=== PATIENT | male | born 1965 | race Caucasian/White ===

== ENCOUNTER 2020-04-25 10:50 | Emergency (ER) | payer MEDICARE, MEDICAID, SELFPAY ==
[2020-04-25 10:54] VITALS: BP 137/91; PULSE 83; RESP 16; TEMP 36.9; O2SAT 96; BMI 24.5
--- NOTE | 2020-04-25 11:00 | XRR_ITS ---
PROCEDURE INFORMATION: Exam: XR Right Shoulder Exam date and time: 04/25/2020 11:25 AM Age: 54 years old Clinical indication: Pain and injury or trauma; Injury history: Car fell on patient; Initial encounter; Blunt trauma (contusions or hematomas; Shoulder; Right; Injury details: 3 days ago TECHNIQUE: Imaging protocol: XR Right shoulder. Views: 2 or more views. COMPARISON: No relevant prior studies available. FINDINGS: Bones/joints: Osseous structures of the shoulder are grossly normal. Acromioclavicular joint is without dislocation or fracture. Subacromial space height is normal. Adjacent ribs are normal. Glenohumeral joint, clavicle, acromion, and coracoid process appear grossly normal. Soft tissues: Normal. XR/XR shoulder RT min 2V* [id number] IMPRESSION: Normal shoulder.
--- NOTE | 2020-04-25 11:08 | W.ED.EXTPRO ---
HPI - Extremity Problem General: Chief complaint: Extremity Injury, Upper Stated complaint: car fell on pt Time Seen by Provider: 04/25/20 11:07 Source: patient Mode of arrival: ambulatory Limitations: no limitations History of Present Illness: HPI Narrative: Patient comes in today for complaints of injury to the right chest wall/right shoulder area. Patient states on Saturday he was working on his car and it slipped off the [place] causing the car to come down on his right shoulder hard. Patient states that over the last 2 days he has had increasing pain to the right anterior chest wall. Respirations were even lungs were clear to auscultation. Patient's appears well. Patient appears in mild to moderate pain. Review of Systems General: Reports: 10 or more systems reviewed and unremarkable except in HPI and below Musc: Reports: extremity pain PFSH ED PFSH: Social History Smoking and tobacco status: former smoker Physical Exam Const: COMMON NORMALS: no acute distress and patient oriented x3 GENERAL APPEARANCE: cooperative HENMT: COMMON NORMALS: normocephalic and Normal external nose present HEAD & SCALP: normal to inspection and normocephalic NOSE: Normal external nose present MOUTH: Normal oral and palatal mucosa present Eye: GENERAL EYE: appearance normal, both eyes and all related structures Neck/C-Spine: COMMON NORMALS: full ROM Lymph: LYMPHATIC: no lymphadenopathy noted Chest: CHEST: Yes tenderness (Right anterior chest wall.) Resp: COMMON NORMALS: normal respiratory effort EFFORT & INSPECTION: Yes able to speak in complete sentences Cardio: COMMON NORMALS: regular rate and regular rhythm RATE: regular rate RHYTHM: regular rhythm GI: COMMON NORMALS: non-tender : COMMON NORMALS: Yes no CVA tenderness BLADDER/KIDNEY EXAM: Yes no CVA tenderness Back/Pelvis: COMMON NORMALS: no CVA tenderness THORACIC SPINE/UPPER BACK: Yes paraspinal muscle tenderness Extremity: COMMON NORMALS: normal to inspection Neuro: COMMON NORMALS: patient oriented x3 and moves all extremities Psych: COMMON NORMALS: mental status grossly normal and cooperative Skin: COMMON NORMALS: no rashes or lesions noted GENERAL SKIN EXAM: no rashes or lesions noted Course Vital Signs: Vital signs: Vital Signs Temperature 98.4 F 04/25/20 10:54 Pulse Rate 83 04/25/20 10:54 Respiratory Rate 16 04/25/20 10:54 Blood Pressure 137/91 04/25/20 10:54 Pulse Oximetry 96 06/22/20 10:54 MDM - Extremity (Nontraumatic) MDM Narrative: Medical decision making narrative: Patient comes in for concerns of chest wall injury and pain from the incident that occurred on Saturday. On exam patient has some tenderness to the right anterior chest wall. Respirations were even lungs were clear to auscultation. Heart rate was regular. Abdomen soft and nontender. Patient had normal range of motion of the right shoulder. Differential diagnosis includes but not limited to contusion, pneumonia, rib fracture. X-rays were negative for any fracture or pneumothorax. Reviewed exam with patient recommended treatment with medication for pain and discomfort inflammation. EKG was normal. Patient reported understanding of care plan and need for follow-up. Discharge Plan Discharge Patient Disposition: Home, Self-Care Clinical Impression: Chest wall contusion Qualifiers: Encounter type: initial encounter Laterality: right Qualified Code(s): S20.211A - Contusion of right front wall of thorax, initial encounter Condition: Stable Prescriptions: New diclofenac potassium 50 mg tablet 50 mg PO Q8H PRN (Reason: pain) Qty: 20 RF: 0 Discharge Orders: Discharge Order (Routine); Ordered 04/25/20 Ordered By: Jake Bryant Discharge Diet: Usual diet Discharge Activity: Increase activity as tolerated Patient Instructions: Contusion in Adults (ED) Activity Restrictions/Additional Instructions: Activity as tolerated. Drink plenty of water with medication. Follow-up with primary care in 1 week. Return to the ER for worsening shortness of breath or high fever. Coding Level of Care Code ED Logistician for Renny Dao Exam Comprehensive
--- NOTE | 2020-04-25 11:12 | XRR_ITS ---
PROCEDURE INFORMATION: Exam: XR Right Ribs with PA Chest, 3 Views Exam date and time: 04/25/2020 11:13 AM Age: 54 years old Clinical indication: Pain and injury or trauma; Injury history: Car fell on patient; Initial encounter; Rib area; Blunt trauma (contusions or hematomas); Other: Right upper rib pain; Injury details: 3 days ago TECHNIQUE: Imaging protocol: XR Right ribs 3 views with PA chest. COMPARISON: No relevant prior studies available. FINDINGS: Lungs: The submitted view of the chest is unremarkable. No acute cardiopulmonary process. The ribs are grossly normal. No acute or chronic fracture appreciated. No lytic process or expansile process. No rib notching. Pleural space: Unremarkable. No pleural effusion. No pneumothorax. Heart/Mediastinum: Unremarkable. No cardiomegaly. Bones/joints: See Lungs finding. XR/XR ribs RT mn 3V w CXR1V [id number] IMPRESSION: Unremarkable ribs.
--- NOTE | 2020-04-25 11:12 | ECG_ITS ---
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 Measurements Intervals [place] Rate: 81 P: 71 IA: 151 QRS: 48 QRSD: 73 T: 54 QT: 352 QTc: 410 Interpretive Statements SINUS RHYTHM No previous ECG available for comparison Electronically Signed On 04-25-2020 18:27:47 CDT by Carly Donohue M.D. [id number]
[2020-04-25 12:50] VITALS: BP 147/86; PULSE 75; RESP 18; O2SAT 96
== END 2020-04-25 12:51 | disposition home or self-care (01) ==
PROVIDERS: Emergency Provider Nurse Practitioner Family
DX: S20.211A Contusion of right front wall of thorax, initial encounter (principal); W20.8XXA Other cause of strike by thrown, projected or falling object, initial encounter; Z87.891 Personal history of nicotine dependence
CPT/HCPCS: 12345; 71101; 73030; 93005; 99282; 99283

== ENCOUNTER → 2020-11-09 09:55 | Outpatient (BNVA) | payer MEDICARE, MEDICAID, SELFPAY | PROVIDERS: PCP Nurse Practitioner Family; Referring Provider Nurse Practitioner Family; Visit Provider Nurse Practitioner Family | DX: R35.0 Frequency of micturition (principal); Z12.5 Encounter for screening for malignant neoplasm of prostate; N40.1 Benign prostatic hyperplasia with lower urinary tract symptoms | CPT/HCPCS: 81003; G0103 ==

== ENCOUNTER 2020-11-30 08:27 | Outpatient (CLI) | payer MEDICARE, MEDICAID, SELFPAY ==
--- NOTE | 2020-11-30 08:45 | US_ITS ---
WS: [id number] ULTRASOUND ABDOMEN LIMITED CLINICAL INFORMATION: R10.9 - Unspecified abdominal pain COMPARISON: None. FINDINGS: Liver Size: Normal. Craniocaudal length: 12.9 cm. Echogenicity: Normal. Surface nodularity: None. Mass (size and location): None. Bile ducts Intrahepatic ducts: Normal. Common bile duct diameter: 0.4 cm. Gallbladder Normal. Gallstones: None. Gallbladder sludge: None. Gallbladder wall thickening: None. Pericholecystic fluid: None. Sonographic Denny sign: Absent. Pancreas Normal as visualized. Right kidney: Normal. Hydronephrosis: None. Size: 10.4 cm x 5.4 cm x 4.6 cm. Abdominal aorta and IVC Visualized portions are normal. Ascites: None. US/US gall bladder [id number] IMPRESSION: Normal right upper quadrant ultrasound
== END 2020-11-30 08:28 | disposition home or self-care (01) ==
LOC: US 08:28
PROVIDERS: PCP Nurse Practitioner Family; Visit Provider Surgery
DX: R10.9 Unspecified abdominal pain (principal)
CPT/HCPCS: 76705

== ENCOUNTER → 2020-12-02 10:59 | Outpatient (BNVA) | payer MEDICARE, MEDICAID, SELFPAY | PROVIDERS: PCP Nurse Practitioner Family; Visit Provider Surgery | DX: Z20.822 Contact with and (suspected) exposure to COVID-19 (principal) | CPT/HCPCS: 87635 ==

== ENCOUNTER 2020-12-07 07:15 | Day surgery (SDC) | payer MEDICARE, MEDICAID, SELFPAY ==
[2020-12-05 11:09] VITALS: BMI 25.4
[2020-12-07 07:34] VITALS: BP 156/101; PULSE 95; RESP 18; TEMP 36.3; O2SAT 98
[2020-12-07] MEDS: sodium chloride 0.9% 1,000 ML 30 ML IV (07:38)
--- NOTE | 2020-12-07 07:39 | ANES.PREANE2 ---
Pre-Anesthetic Assessment Pre-Anesthetic Assessment: Height/Weight: Height 1.68 m Weight 71.668 kg Preop Diagnosis: Bloating Proposed Procedure: Operation Date: 12/07/20 08:15 Proposed Procedures p EGD/colon 52671 45476 K21.9 Z12.11(Not Applicable) - Chavez Shea MD s Colonoscopy(Not Applicable) - Chavez Shea MD Familial anesthetic complications: None Was Beta Trinh taken within 24 hours: N/A Last intake: NPO > 8 hrs Social: Social History: No alcohol and No tobacco Comment: forme rsmoker Exam: Pre-Anes Outpt Exam: alert, oriented x 3, clear to auscultation bilaterally and regular rate & rhythm Airway: Cervical ROM: WNL MP: 3 Dentition: Other (extremely poor dentition of lower teeth (brown, discolored rotten, misshapen)) Additional comments: full montaño Pulmonary: Pulmonary: COPD GI: GI: GERD Metabolic: Metabolic: Hyperlipidemia Neuropsych: Neuropsych: TIA Anesthetic Plan: ASA status: 2 Anesthesia: MAC Risk of > 500 ml blood loss (7ml/kg in children): No PFSH Anesthesia PFSH: Medical History BPH loc w urin obs/LUTS GERD with esophagitis Screening PSA (prostate specific antigen) Family History Family/Other No problems noted. Social History Smoking and tobacco status: former smoker Alcohol intake: never Current occupational status: unemployed Data Anesthesia Cardiac Studies: No Data to Display
--- NOTE | 2020-12-07 07:40 | W.PM.OPSUD ---
Surgery/Procedure H&P Update DATE OF PROCEDURE: December 07, 2020 DATE H&P PERFORMED: 11/17/20 H&P UPDATE INFORMATION: I have reviewed H&P completed within last 30 days, I have examined patient prior to procedure and No changes to prior documentation PREOP DIAGNOSIS: Bloating PRIMARY INDICATION FOR PROCEDURE: The same PLANNED PROCEDURE: Operation Date: 12/07/20 08:15 Proposed Procedures p EGD/colon 57539 85281 K21.9 Z12.11(Not Applicable) - Chavez Shea MD s Colonoscopy(Not Applicable) - Chavez Shea MD
[2020-12-07 08:42] VITALS: BP 139/78; PULSE 73; RESP 16; TEMP 36.6; O2SAT 98
--- NOTE | 2020-12-07 08:46 | ANE.PACU2 ---
Inpatient post-anesthesia follow up: Airway intact: Yes Vital signs: Temperature 97.3 F Pulse Rate 95 Respiratory Rate 18 Blood Pressure 156/101 Pulse Oximetry 98 Oxygen Delivery Me thod Room Air Oxygen Flow Rate Fraction of Inspir ed Oxygen Hydration adequate: Yes Nausea and vomiting: No Pain level: 1 Mental status: Baseline
[2020-12-07 08:56] VITALS: BP 147/93; PULSE 73; RESP 16; O2SAT 99
[2020-12-08 05:55] LABS: H. Pylori / CLO Test Negative
== END 2020-12-07 09:04 | disposition home or self-care (01) ==
PROVIDERS: PCP Nurse Practitioner Family; Visit Provider Surgery
PROC: 0DJ08ZZ Inspection of Upper Intestinal Tract, Via Natural or Artificial Opening Endoscopic (ICD-10-PCS; CPT 43235; principal; 2020-12-07 08:15)
PROC: 0DJD8ZZ Inspection of Lower Intestinal Tract, Via Natural or Artificial Opening Endoscopic (ICD-10-PCS; CPT 45378; 2020-12-07 08:15)
DX: R14.0 Abdominal distension (gaseous) (principal); D12.0 Benign neoplasm of cecum; K21.9 Gastro-esophageal reflux disease without esophagitis; K29.70 Gastritis, unspecified, without bleeding; K29.80 Duodenitis without bleeding; N40.1 Benign prostatic hyperplasia with lower urinary tract symptoms; N13.8 Other obstructive and reflux uropathy; Z87.891 Personal history of nicotine dependence; J44.9 Chronic obstructive pulmonary disease, unspecified; E78.5 Hyperlipidemia, unspecified; Z86.73 Personal history of transient ischemic attack (TIA), and cerebral infarction without residual deficits
CPT/HCPCS: 12345; 43239; 45380; 87077; 88305; J2704; J7030

== ENCOUNTER 2020-12-16 06:42 | Outpatient (CLI) | payer MEDICARE, MEDICAID, SELFPAY ==
--- NOTE | 2020-12-16 08:00 | NM_ITS ---
WS: [id number] NUCLEAR MEDICINE HIDA SCAN CLINICAL INFORMATION: R10.9 - Unspecified abdominal pain TECHNIQUE: Following intravenous administration of 7.8 mCi of technetium 99m mebrofenin, images of th e abdomen were obtained over the course of 60 minutes. Next, gallbladder ejection fraction was determ ined by obtaining preprandial and one-hour postprandial images of the gallbladder following oral guille stion of Ensure. COMPARISON: Ultrasound November 30, 2020 FINDINGS: Normal hepatic uptake at 5 minutes. Gallbladder is visualized by 15 minutes. No evidence of acute cho lecystitis. Common bile duct is visualized. Normal small bowel activity. No evidence of choledocholit hiasis. Gallbladder ejection fraction 79% within normal limits. No evidence of chronic cholecystitis. NM/NM hepatobiliary w phar* [id number] IMPRESSION: 1. No evidence of acute or chronic cholecystitis. 2. Normal gallbladder ejection fraction 79%.
== END 2020-12-16 06:43 | disposition home or self-care (01) ==
LOC: NM 06:43
PROVIDERS: PCP Nurse Practitioner Family; Visit Provider Surgery
DX: R10.9 Unspecified abdominal pain (principal)
CPT/HCPCS: 78227; A9537

== ENCOUNTER → 2021-01-12 10:48 | Outpatient (BNVA) | payer MEDICARE, MEDICAID, SELFPAY | PROVIDERS: PCP Nurse Practitioner Family; Visit Provider Urology | DX: N40.1 Benign prostatic hyperplasia with lower urinary tract symptoms (principal) | CPT/HCPCS: 81003 ==

== ENCOUNTER → 2021-05-01 15:06 | Outpatient (BNVA) | payer MEDICARE, MEDICAID, SELFPAY | PROVIDERS: PCP Nurse Practitioner; Visit Provider Nurse Practitioner | DX: J43.9 Emphysema, unspecified (principal); E78.2 Mixed hyperlipidemia; R14.0 Abdominal distension (gaseous) | CPT/HCPCS: 80053; 80061; 85025 ==

== ENCOUNTER 2021-10-11 09:27 | Emergency (ER) | payer MEDICARE, MEDICAID, SELFPAY ==
[2021-10-11 09:45] VITALS: BP 98/67; PULSE 106; RESP 20; TEMP 37.2; O2SAT 89; BMI 29.8
--- NOTE | 2021-10-11 09:52 | PC.NURSE ---
pt is covid waiting room put on 2L O2 at 93%
--- NOTE | 2021-10-11 09:52 | XR_ITS ---
WS: [id number] Exam: XR chest 1V portable [id number] Date/Time of Exam: 10/11/2021 9:52 AM Reason For Exam: COVID Comparison 04/25/2020. There are mild groundglass infiltrates in the bilateral lower lobes suggesting pneumonia. Remaining l westley kate are clear. Normal cardiomediastinal structures. No pleural effusions. Bony elements are in tact. XR/XR chest 1V portable [id number] IMPRESSION: 1. Mild groundglass infiltrates in the bilateral lung bases suggesting active p neumonia.
--- NOTE | 2021-10-11 11:12 | ED_ITS ---
HPI - COVID General: Chief Complaint: COVID symptoms Stated Complaint: COVID +/SOB, 84% O2 Time Seen by Provider: 10/11/21 09:54 Triage information: Exposure to COVID + person last 14 days History of Present Illness: HPI Narrative: 55-year-old male presents emergency room complaining of cough congestion myalgias mild anosmia and low-grade subjective fever. Patient said symptoms for approximately 1 week he did go home COVID test which she reported was positive evaluation 3 days ago. He has not had any formal testing. He denies productive cough. Does have a history of COPD. On presentation here his sats are in the 80s and he requires 2 L by nasal cannula he is not normally on oxygen. MD complaint: known COVID positive Prior testing date: 10/11/21 COVID 19 common symptoms: positive fever(s), chills, cough, non-productive cough, dyspnea, fatigue, body aches, headache(s), loss of sense of smell and/or taste, throat pain and nasal congestion; negative nausea, vomiting or diarrhea COVID 19 other sytmptoms: positive requiring oxygen; negative chest pain Onset (ago): hour(s) Severity: moderate Pertinent comorbid conditions: COPD/respiratory disease Treatment prior to arrival: none COVID Results: SARS-CoV-2 Antigen (Rapid) Positive (Negative) H 10/11/21 11:23 10/11/21 Nasal/Oral Coronavirus 2019 PCR Not detected 12/02/20 10:59 12/02/20 Review of Systems Const: Reports: fever(s), chills, body aches and fatigue ENMT: Reports: throat pain and nasal congestion Card: Denies: chest pain, edema, dyspnea on exertion or orthopnea Resp: Reports: dyspnea and non-productive cough GI: Denies: abdominal pain, nausea, vomiting, hematemesis, coffee ground emesis, diarrhea, constipation, bloating, hematochezia or melena : Denies: flank pain, dysuria, urinary frequency or urinary urgency Skin/Breast: Denies: rash or pruritus Neuro: Reports: headache(s) [facility] ED PFSH: Medical History (Updated 10/11/21 @ 12:57 by Floyd Camacho DO) 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 Mother , AT AGE 83 No problems noted. Father , AT AGE 67 No problems noted. Social History Second hand smoke exposure: No Smoking risk assessment/counseling performed?: No Alcohol intake: never Desire information about alcohol rehabilitation?: No Counseling given: No Desire information about substance/drug rehabilitation?: No Counseling given: No Adopted: No Caregiver/support person: No Lives independently: Yes Household members: none Housing: House Marital status: Number of children: 2 service: No Current occupational status: disabled Current occupational exposures/hazards: No Pets and animals: Yes Pets & animals: cat(s) History of recent travel: No Current gender identity: Male Physical Exam Const: COMMON NORMALS: no acute distress GENERAL APPEARANCE: cooperative and comfortable ORIENTATION/CONSCIOUSNESS: Yes awake, Yes oriented to person, Yes oriented to place and Yes oriented to time HENMT: COMMON NORMALS: normocephalic, atraumatic and hearing grossly normal bilaterally HEAD & SCALP: normocephalic and atraumatic Neck/C-Spine: COMMON NORMALS: no JVD Resp: AUSCULTATION: crackles and wheezes Cardio: COMMON NORMALS: no JVD, regular rate, regular rhythm and No murmurs present (Cardio) RATE: regular rate RHYTHM: regular rhythm GI: COMMON NORMALS: Soft to palpation and No hepatosplenomegaly present AUSCULTATION: Yes normoactive bowel sounds PALPATION: Yes Soft to palpation, No Tenderness to palpation present (GI), No Guarding due to palpation present (GI) and Yes No hepatosplenomegaly present Extremity: COMMON NORMALS: normal to inspection, capillary refill normal, no clubbing, cyanosis or edema, no calf tenderness and no pedal edema Neuro: SENSORIUM/ORIENTATION: Yes oriented to person, Yes oriented to place and Yes oriented to time Skin: COMMON NORMALS: no rashes or lesions noted GENERAL SKIN EXAM: no rashes or lesions noted Course Vital Signs: Vital signs: Vital Signs Temperature 99.0 F 10/11/21 09:45 Pulse Rate 85 10/11/21 14:18 Respiratory Rate 23 H 10/11/21 14:18 Blood Pressure 142/82 10/11/21 14:18 Pulse Oximetry 96 10/11/21 14:18 MDM - COVID MDM Narrative: Medical decision making narrative: Patient has COVID however is tolerating well does have some coarse breath sounds with his oxygen saturations are normal at 2 L/min. We will go ahead and discharge him home on home oxygen dexamethasone and albuterol as needed monitor home O2 sats if less than 90% on room air at rest return to emergency room. Lab Data: Labs: Lab Results 10/11/21 10/11/21 10/11/21 11:23 11:23 11:23 WBC 7.9 10^3/uL 10^3/ uL (4.0-10.0) RBC 4.83 10^6/uL 10^6 /uL (4.1-5.3) Hgb 14.1 g/dL g/dL (11.7-16.6) Hct 42.2 % % (42.0-52.0) MCV 87.4 fl fl (80-94) MCH 29.2 pg pg (28.0-34.0) MCHC 33.4 g/dL g/dL (30.0-36.0) RDW 13.6 % % (12.1-15.1) Plt Count 232 10^3/cmm 10^3 /cmm (130-400) MPV 10.9 fL H fL (7.4-10.4) Neut % (Auto) 81.9 % % Lymph % (Auto) 10.9 % % Elk % (Auto) 6.3 % % Eos % (Auto) 0.0 % % Baso % (Auto) 0.1 % % Neut # (Auto) 6.48 10^3/uL 10^3 /uL (1.8-7.7) Lymph # (Auto) 0.9 10^3/uL 10^3/ uL (0.8-4.8) Elk # (Auto) 0.5 10^3/uL 10^3/ uL (0.2-0.9) Eos # (Auto) 0.0 10^3/uL 10^3/ uL (0.0-0.8) Baso # (Auto) 0.0 10^3/uL 10^3/ uL (0.0-0.1) Nucleated RBC % (a uto) 0 % % Nucleated RBCs # 0.0 /100WBC /100W BC Sodium 131 mmol/L L mmol /L (136-145) Potassium 3.7 mmol/L mmol/L (3.5-5.1) Chloride 91 mmol/L L mmol/ L (98-107) Carbon Dioxide 21 mmol/L L mmol/ L (22-29) Anion Gap 22.7 H (5-19) BUN 14 mg/dL mg/dL (6-20) Creatinine 1.1 mg/dL mg/dL (0.7-1.2) GFR Calculation 69.2 mL/min L mL/ min (90-130) Glucose 114 mg/dL mg/dL (65-115) Calculated Osmolal ity 273 mOsm/kg L mOs m/kg (285-295) Calcium 8.1 mg/dL L mg/dL (8.5-10.5) Total Bilirubin 0.4 mg/dL mg/dL (0.15-1.2) AST 45 U/L H U/L (0-40) ALT 26 U/L U/L (0-41) Alkaline Phosphata se 61 IU/L IU/L (40-130) Total Protein 7.1 g/dL g/dL (6.6-8.7) Albumin 3.8 g/dL g/dL (3.5-5.2) Globulin 3.3 g/dL g/dL (1.3-4.6) SARS-CoV-2 Ag (Rap id) Positive H (Negative) COVID Results: SARS-CoV-2 Antigen (Rapid) Positive (Negative) H 10/11/21 11:23 10/11/21 Nasal/Oral Coronavirus 2019 PCR Not detected 12/02/20 10:59 12/02/20 Discharge Plan Discharge Patient Disposition: Home Clinical Impression: COVID-19, COPD (chronic obstructive pulmonary disease) with emphysema Condition: Stable Prescriptions: New dexamethasone 6 mg tablet 6 mg PO DAILY Qty: 7 RF: 0 albuterol sulfate 90 mcg/actuation HFA aerosol inhaler 2 inh INHALATION Q4H PRN (Reason: shortness of breath or wheezing) Qty: 18 RF: 0 No Action Breelzbietatri Aerosphere 160-9-4.8 mcg/actuation HFA aerosol inhaler 2 inh inhalation BID Qty: 10.7 RF: 2 lovastatin 20 mg tablet 20 mg PO DAILY Qty: 90 RF: 1 sucralfate [Carafate] 1 gram tablet 1 g PO .4 times day Qty: 360 RF: 1 tamsulosin 0.4 mg capsule 0.4 mg PO DAILY Qty: 90 RF: 1 omeprazole 40 mg capsule,delayed release(DR/EC) See Rx Instructions .ROUTE .COMPLEX Qty: 30 RF: 2 Discharge Orders: Discharge ED (Routine); Ordered 10/11/21 Ordered By: Floyd Camacho Other Ambulatory Orders: DME: Oxygen (Order) Location: None Selected Ordered By: Floyd Camacho Referrals: Sarah Armendariz, WINDOWS SERVER ADMINISTRATOR-C [Primary Care Provider] - Discharge Diet: Usual diet Patient Instructions: Opioid Safety Activity Restrictions/Additional Instructions: Recommend you maintain self quarantine. Monitor home oxygen saturations. If oxygen saturations decreased below 90% while on 2 L by nasal cannula at rest return to the emergency room. Coding Level of Care Code ED Hospice Nurse for Renny Dao Exam Comprehensive
[2021-10-11 11:31] VITALS: O2SAT 96
[2021-10-11 11:34] LABS: Basophils % 0.1 %; Hematocrit 42.2 % (42.0-52.0); Hemoglobin 14.1 g/dL (11.7-16.6); Lymphocytes # 0.9 10^3/uL (0.8-4.8); Lymphocytes % 10.9 %; Mean Corpuscular HGB Conc 33.4 g/dL (30.0-36.0); Mean Corpuscular Hemoglobin 29.2 pg (28.0-34.0); Mean Corpuscular Volume 87.4 fl (80-94); Mean Platelet Volume 10.9 fL (7.4-10.4); Monocytes # 0.5 10^3/uL (0.2-0.9); Monocytes % 6.3 %; Neutrophils # 6.48 10^3/uL (1.8-7.7); Neutrophils % 81.9 %; Nucleated Red Blood Cells % 0 %; Platelet Count 232 10^3/cmm (130-400); Red Blood Count 4.83 10^6/uL (4.1-5.3); Red Cell Distribution Width 13.6 % (12.1-15.1); White Blood Count 7.9 10^3/uL (4.0-10.0)
[2021-10-11 12:06] LABS: Alanine Aminotransferase 26 U/L (0-41); Albumin Level 3.8 g/dL (3.5-5.2); Alkaline Phosphatase 61 IU/L (40-130); Anion Gap 22.7 (5-19); Aspartate Amino Transferase 45 U/L (0-40); Blood Urea Nitrogen 14 mg/dL (6-20); Calcium 8.1 mg/dL (8.5-10.5); Carbon Dioxide 21 mmol/L (22-29); Chloride 91 mmol/L (98-107); Globulin 3.3 g/dL (1.3-4.6); Glomerular Filtration Rate 69.2 mL/min (90-130); Glucose 114 mg/dL (65-115); Osmolality Calculated 273 mOsm/kg (285-295); Potassium 3.7 mmol/L (3.5-5.1); Sodium 131 mmol/L (136-145); Total Bilirubin 0.4 mg/dL (0.15-1.2); Total Protein 7.1 g/dL (6.6-8.7)
[2021-10-11 12:26] VITALS: O2SAT 90
[2021-10-11 12:31] LABS: SARS Covid-2 Antigen Positive (Negative)
[2021-10-11] MEDS: sodium chloride 0.9% 1,000 ML 999 ML IV (13:17)
[2021-10-11 14:18] VITALS: BP 142/82; PULSE 85; RESP 23; O2SAT 96
== END 2021-10-11 14:19 | disposition home or self-care (01) ==
PROVIDERS: Physician Assistant; Emergency Provider Family Medicine; PCP Nurse Practitioner
DX: U07.1 COVID-19 (principal); J43.9 Emphysema, unspecified; E78.2 Mixed hyperlipidemia
CPT/HCPCS: 71045; 80053; 85025; 87426; 96360; 99283; J7030

== ENCOUNTER 2021-10-13 09:55 | Emergency (ER) | payer MEDICARE, MEDICAID, SELFPAY ==
[2021-10-13 10:03] VITALS: BP 130/76; PULSE 93; RESP 20; TEMP 36.6; O2SAT 86; BMI 25.8
--- NOTE | 2021-10-13 10:36 | CT_ITS ---
WS: [id number] CT CHEST ANGIOGRAPHY WITH REFORMATS HISTORY: dyspnea/COVID TECHNIQUE: Contiguous axial images are obtained through the chest during arterial injection of intrav enous contrast. Images are reconstructed to evaluate the pulmonary arteries. MIP imaging also reviewe d. All CT scans at [place] use at least one of these dose optimization techniques: automat ed exposure control; mA and/or kV adjustment per patient size (includes targeted exams where dose is matched to clinical indication); or iterative reconstruction. CONTRAST: Omnipaque 350; 71 mL IV. DLP: 539.0 mGy.cm COMPARISON: None available. Suboptimal opacification of the pulmonary arteries due to poor injection timing. Cannot exclude small bilateral pulmonary emboli. There is no RIGHT heart strain. Mild atherosclerosis aorta. No adenopath y. Moderate chronic emphysematous changes throughout both lungs. Reticular interstitial thickening in th e periphery of the upper lower lung kate. Mild dependent changes at the lungs bilaterally. Addition al areas of pneumonitis at the lung bases. Subsegmental atelectasis at the RIGHT lung base. Normal size liver with hepatic steatosis along the falciform ligament. No adrenal mass. Gallbladder i s contracted. No osteoblastic or osteolytic bone disease. CT/CT angio chest PE protcl [id number] IMPRESSION: 1. Suboptimal opacification of the pulmonary artery due to poor timing of the bolus. No large pulmonary emboli identified. 2. Marked emphysema with dependent changes and pneumonitis at the lung bases a nd atelectasis.
[2021-10-13 11:21] LABS: ABG PCO2 34.2 mmHg (35-45); ABG PH Result 7.48 (7.35-7.45); Arterial Blood Gas Hematocrit 41.4 % (42-52); Base Excess ABG 2.5 mmol/L (-2.0-2.0); Blood Gas Allen Test Pos; Blood Gas Sample Type Arterial; HCO3 ABG 25.7 mmol/L (22-26); PO2 ABG 78.9 mmHg (80.0-100.0)
[2021-10-13 11:22] LABS: Blood Gas Operator Identificat MONRO; Blood Gas Sample Site Radial, right; Oxygen Device NC
--- NOTE | 2021-10-13 11:40 | ED_ITS ---
HPI - COVID General: Chief Complaint: COVID symptoms Stated Complaint: COVID + LOW O2 ON OXYGEN Time Seen by Provider: 10/13/21 10:10 Triage information: Has fever, cough or shortness of breath . History of Present Illness: HPI Narrative: 55-year-old male who presents to the emergency room patient is known Covid positive he tested positive just a few days ago.The nurses a notation that he tested positive on August 07 that is not correct he tested positive on 10/11/2021 he states he had symptoms since August that he assumed were COVID. But his rapid antigen was positive on the . He required oxygen at the time of diagnosis so he is not a candidate for monoclonal antibodies he was discharged home with albuterol steroids and oxygen on arrival here he states his oxygen sats were low at home however on 2 L by nasal cannula he remains in the mid 90s. MD complaint: known COVID positive Prior testing date: 10/11/21 COVID 19 common symptoms: positive fever(s), chills, cough, non-productive cough, dyspnea, fatigue, body aches, headache(s), loss of sense of smell and/or taste, throat pain, nasal congestion, nausea, vomiting and diarrhea; negative productive cough COVID 19 other sytmptoms: positive requiring oxygen; negative chest pain Onset (ago): day(s) Severity: moderate Pertinent comorbid conditions: COPD/respiratory disease Treatment prior to arrival: acetaminophen, ibuprofen, steroids and breathing treatments COVID Results: SARS-CoV-2 Antigen (Rapid) Positive (Negative) H 10/11/21 11:23 10/11/21 Nasal/Oral Coronavirus 2019 PCR Not detected 12/02/20 10:59 12/02/20 Review of Systems Const: Reports: fever(s), chills, body aches and fatigue Eyes: Denies: change in vision or blurry vision ENMT: Reports: throat pain and nasal congestion Card: Denies: chest pain, palpitations, irregular heart rhythm, edema, syncope, dyspnea on exertion, orthopnea or leg pain with exertion Resp: Reports: dyspnea and non-productive cough; Denies: productive cough GI: Reports: nausea, vomiting and diarrhea : Denies: flank pain, difficulty urinating, dysuria, urinary frequency, urinary urgency, urinary incontinence or hematuria Musc: Denies: neck pain, back pain, extremity pain, extremity swelling, joint pain or joint swelling Skin/Breast: Denies: rash, pruritus or erythema Neuro: Reports: headache(s) Psych: Denies: anxiety, depression, loss of interest, visual hallucinations, auditory hallucinations, suicidal ideation or homicidal ideation Endo: Denies: polyuria, polydipsia, tired all the time or cold intolerance Smith/Lymph: Denies: easy bruising, easy bleeding, petechiae, enlarged lymph nodes or tender lymph nodes PFSH ED PFSH: Medical History (Updated 10/13/21 @ 14:09 by Floyd Camacho DO) 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 Mother , AT AGE 83 No problems noted. Father , AT AGE 67 No problems noted. Social History Second hand smoke exposure: No Smoking risk assessment/counseling performed?: No Alcohol intake: never Desire information about alcohol rehabilitation?: No Counseling given: No Desire information about substance/drug rehabilitation?: No Counseling given: No Adopted: No Caregiver/support person: No Lives independently: Yes Household members: none Housing: House Marital status: Number of children: 2 service: No Current occupational status: disabled Current occupational exposures/hazards: No Pets and animals: Yes Pets & animals: cat(s) History of recent travel: No Current gender identity: Male Physical Exam Const: COMMON NORMALS: no acute distress GENERAL APPEARANCE: cooperative and comfortable ORIENTATION/CONSCIOUSNESS: Yes awake, Yes oriented to person, Yes oriented to place and Yes oriented to time HENMT: COMMON NORMALS: normocephalic, atraumatic, hearing grossly normal bilaterally, external ears normal, EAC's normal, TM's normal bilaterally, Normal nasal mucous membranes and turbinates present, moist oral mucous membranes and oropharynx normal HEAD & SCALP: normocephalic and atraumatic NOSE: Normal nasal mucous membranes and turbinates present EXTERNAL EAR: Yes external ears normal EXTERNAL AUDITORY CANAL: EAC's normal TYMPANIC MEMBRANE: TM's normal bilaterally Neck/C-Spine: COMMON NORMALS: no JVD Resp: COMMON NORMALS: normal respiratory effort, No retractions, No use of accessory muscles and clear to auscultation bilaterally AUSCULTATION: clear to auscultation bilaterally Cardio: COMMON NORMALS: no JVD, regular rate, regular rhythm and No murmurs present (Cardio) RATE: regular rate RHYTHM: regular rhythm GI: COMMON NORMALS: Soft to palpation and No hepatosplenomegaly present AUSCULTATION: Yes normoactive bowel sounds PALPATION: Yes Soft to palpation, No Tenderness to palpation present (GI), No Guarding due to palpation present (GI) and Yes No hepatosplenomegaly present Extremity: COMMON NORMALS: normal to inspection, capillary refill normal, no clubbing, cyanosis or edema, no calf tenderness and no pedal edema Neuro: SENSORIUM/ORIENTATION: Yes oriented to person, Yes oriented to place and Yes oriented to time Skin: COMMON NORMALS: no rashes or lesions noted GENERAL SKIN EXAM: no rashes or lesions noted Course Vital Signs: Vital signs: Vital Signs Temperature 97.8 F 10/13/21 10:03 Pulse Rate 80 10/13/21 14:56 Respiratory Rate 16 10/13/21 14:56 Blood Pressure 134/94 10/13/21 14:56 Pulse Oximetry 91 10/13/21 14:56 MDM - COVID MDM Narrative: Medical decision making narrative: Oxygen saturation stable on 2 L/min. Chest x-ray not significantly worsened. Initially came in he was on 4 L only titrate him down he remains very stable on 2.Vital signs sheet on the chart Sukhdeep is being at 86 on 2 L however when I went in the room he was on 4 L satting in the upper 90s I decreased him to 2 L and monitor him for period of time his oxygen sat remained in the 90 to 94% range. He is stable at this point and doing well he is not particularly short of breath.CTA of the chest does not show any PE and there is only minimal findings of pneumonitis. Continue on 2 L/min by nasal cannula. He is not a candidate for monoclonal antibodies because of the new need for oxygen. Lab Data: Labs: Lab Results 10/13/21 10/13/21 10/13/21 11:09 12:27 12:27 WBC 14.8 10^3/uL H 10 ^3/uL (4.0-10.0) RBC 4.63 10^6/uL 10^6 /uL (4.1-5.3) Hgb 13.5 g/dL g/dL (11.7-16.6) Hct 40.5 % L % (42.0-52.0) MCV 87.5 fl fl (80-94) MCH 29.2 pg pg (28.0-34.0) MCHC 33.3 g/dL g/dL (30.0-36.0) RDW 13.5 % % (12.1-15.1) Plt Count 435 10^3/cmm H 10 ^3/cmm (130-400) MPV 10.3 fL fL (7.4-10.4) Neut % (Auto) 81.5 % % Lymph % (Auto) 6.7 % % [place] % (Auto) 8.9 % % Eos % (Auto) 0.1 % % Baso % (Auto) 0.2 % % Neut # (Auto) 12.05 10^3/uL H 1 0^3/uL (1.8-7.7) Lymph # (Auto) 1.0 10^3/uL 10^3/ uL (0.8-4.8) [place] # (Auto) 1.3 10^3/uL H 10^ 3/uL (0.2-0.9) Eos # (Auto) 0.0 10^3/uL 10^3/ uL (0.0-0.8) Baso # (Auto) 0.0 10^3/uL 10^3/ uL (0.0-0.1) Nucleated RBC % (a uto) 0 % % Nucleated RBCs # 0.0 /100WBC /100W BC Specimen Type Arterial Sample Site Radial, right ABG pH 7.48 H (7.35-7.45) ABG pCO2 34.2 mmHg L mmHg (35-45) ABG pO2 78.9 mmHg L mmHg (80.0-100.0) ABG HCO3 25.7 mmol/L mmol/ L (22-26) ABG Base Excess 2.5 mmol/L H mmol /L (-2.0-2.0) Livan Test Pos Hematocrit 41.4 % L % (42-52) O2 Delivery Device Nc O2 Liters/Min 5.0 % % FiO2 40.0 % % [employer] Representative ID [place] Sodium 137 mmol/L mmol/L (136-145) Potassium 3.5 mmol/L mmol/L (3.5-5.1) Chloride 102 mmol/L mmol/L (98-107) Carbon Dioxide 26 mmol/L mmol/L (22-29) Anion Gap 12.5 (5-19) BUN 16 mg/dL mg/dL (6-20) Creatinine 0.8 mg/dL mg/dL (0.7-1.2) GFR Calculation 100.0 mL/min mL/m in (90-130) Glucose 149 mg/dL H mg/dL (65-115) Calculated Osmolal ity 288 mOsm/kg mOsm/ kg (285-295) Lactic Acid Calcium 7.9 mg/dL L mg/dL (8.5-10.5) Total Bilirubin 0.3 mg/dL mg/dL (0.15-1.2) AST 37 U/L U/L (0-40) ALT 29 U/L U/L (0-41) Alkaline Phosphata se 55 IU/L IU/L (40-130) C-Reactive Protein 25.5 mg/L H mg/L (0.0-4.9) Total Protein 6.4 g/dL L g/dL (6.6-8.7) Albumin 3.5 g/dL g/dL (3.5-5.2) Globulin 2.9 g/dL g/dL (1.3-4.6) 10/13/21 12:27 WBC RBC Hgb Hct MCV MCH MCHC RDW Plt Count MPV Neut % (Auto) Lymph % (Auto) [place] % (Auto) Eos % (Auto) Baso % (Auto) Neut # (Auto) Lymph # (Auto) [place] # (Auto) Eos # (Auto) Baso # (Auto) Nucleated RBC % (a uto) Nucleated RBCs # Specimen Type Sample Site ABG pH ABG pCO2 ABG pO2 ABG HCO3 ABG Base Excess Livan Test Hematocrit O2 Delivery Device O2 Liters/Min FiO2 [employer] Representative ID Sodium Potassium Chloride Carbon Dioxide Anion Gap BUN Creatinine GFR Calculation Glucose Calculated Osmolal ity Lactic Acid 1.2 mmol/L mmol/L (0.5-2.2) Calcium Total Bilirubin AST ALT Alkaline Phosphata se C-Reactive Protein Total Protein Albumin Globulin COVID Results: SARS-CoV-2 Antigen (Rapid) Positive (Negative) H 10/11/21 11:23 10/11/21 Nasal/Oral Coronavirus 2019 PCR Not detected 12/02/20 10:59 12/02/20 Discharge Plan Discharge Patient Disposition: Home Clinical Impression: COVID-19 Condition: Stable Prescriptions: No Action Breztri Aerosphere 160-9-4.8 mcg/actuation HFA aerosol inhaler 2 inh inhalation BID Qty: 10.7 RF: 2 lovastatin 20 mg tablet 20 mg PO DAILY Qty: 90 RF: 1 sucralfate [Carafate] 1 gram tablet 1 g PO .4 times day Qty: 360 RF: 1 tamsulosin 0.4 mg capsule 0.4 mg PO DAILY Qty: 90 RF: 1 omeprazole 40 mg capsule,delayed release(DR/EC) See Rx Instructions .ROUTE .COMPLEX Qty: 30 RF: 2 dexamethasone 6 mg tablet 6 mg PO DAILY Qty: 7 RF: 0 albuterol sulfate 90 mcg/actuation HFA aerosol inhaler 2 inh INHALATION Q4H PRN (Reason: shortness of breath or wheezing) Qty: 18 RF: 0 Discharge Orders: Discharge ED (Routine); Ordered 10/13/21 Ordered By: Floyd Camacho Referrals: Sarah Armendariz, [facility] [facility] [Primary Care Provider] - Discharge Diet: Advance as tolerated Discharge Activity: Increase activity as tolerated Patient Instructions: Opioid Safety Activity Restrictions/Additional Instructions: Continue to monitor oxygen sats while at rest return if less than 90 while at rest with oxygen in place. 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
[2021-10-13 12:34] LABS: Basophils % 0.2 %; Eosinophils % 0.1 %; Hematocrit 40.5 % (42.0-52.0); Hemoglobin 13.5 g/dL (11.7-16.6); Lymphocytes % 6.7 %; Mean Corpuscular HGB Conc 33.3 g/dL (30.0-36.0); Mean Corpuscular Hemoglobin 29.2 pg (28.0-34.0); Mean Corpuscular Volume 87.5 fl (80-94); Mean Platelet Volume 10.3 fL (7.4-10.4); Monocytes # 1.3 10^3/uL (0.2-0.9); Monocytes % 8.9 %; Neutrophils # 12.05 10^3/uL (1.8-7.7); Neutrophils % 81.5 %; Nucleated Red Blood Cells % 0 %; Platelet Count 435 10^3/cmm (130-400); Red Blood Count 4.63 10^6/uL (4.1-5.3); Red Cell Distribution Width 13.5 % (12.1-15.1); White Blood Count 14.8 10^3/uL (4.0-10.0)
[2021-10-13 12:52] LABS: Alanine Aminotransferase 29 U/L (0-41); Albumin Level 3.5 g/dL (3.5-5.2); Alkaline Phosphatase 55 IU/L (40-130); Anion Gap 12.5 (5-19); Aspartate Amino Transferase 37 U/L (0-40); Blood Urea Nitrogen 16 mg/dL (6-20); C Reactive Protein 25.5 mg/L (0.0-4.9); Calcium 7.9 mg/dL (8.5-10.5); Carbon Dioxide 26 mmol/L (22-29); Chloride 102 mmol/L (98-107); Globulin 2.9 g/dL (1.3-4.6); Glucose 149 mg/dL (65-115); Osmolality Calculated 288 mOsm/kg (285-295); Potassium 3.5 mmol/L (3.5-5.1); Sodium 137 mmol/L (136-145); Total Bilirubin 0.3 mg/dL (0.15-1.2); Total Protein 6.4 g/dL (6.6-8.7)
[2021-10-13 12:53] LABS: Lactic Sepsis W/Reflex 1.2 mmol/L (0.5-2.2)
[2021-10-13] MEDS: iohexol 350 mg/mL 100 mL Btl IV (13:29)
[2021-10-13 14:56] VITALS: BP 134/94; PULSE 80; RESP 16; O2SAT 91
== END 2021-10-13 14:57 | disposition home or self-care (01) ==
PROVIDERS: Emergency Provider Family Medicine; PCP Nurse Practitioner
DX: U07.1 COVID-19 (principal); J44.9 Chronic obstructive pulmonary disease, unspecified; E78.2 Mixed hyperlipidemia
CPT/HCPCS: 36415; 36600; 71275; 80053; 82803; 83605; 85025; 86140; 87040; 99283; Q9967

== ENCOUNTER 2021-10-21 08:14 | Inpatient (IN) | payer MEDICARE, MEDICAID, SELFPAY ==
[2021-10-21] VITALS (8 sets, daily range): BP systolic 124–142; BP diastolic 66–88; PULSE 74–123; RESP 18–25; TEMP 36.4–36.6; O2SAT 91–98; BMI 23.2; BMI 23.5
--- NOTE | 2021-10-21 08:17 | XRR_ITS ---
PROCEDURE INFORMATION: Exam: XR Chest Exam date and time: 10/21/2021 8:17 AM Age: 55 years old Clinical indication: Shortness of breath; Additional info: Pain, SOB, covid TECHNIQUE: Imaging protocol: XR of the chest. Views: 1 view. COMPARISON: CR XR chest 1V portable [id number] 10/11/2021 10:07 AM FINDINGS: Lungs: There are increasing bibasilar interstitial pulmonary infiltrates consistent with worsening viral pneumonia. Pleural spaces: Unremarkable. No pleural effusion. No pneumothorax. Heart/Mediastinum: Unremarkable. No cardiomegaly. Bones/joints: Unremarkable. XR/XR chest 1V portable [id number] IMPRESSION: Increasing basilar infiltrates consistent with worsening viral pneumonia.
--- NOTE | 2021-10-21 09:31 | ECG_ITS ---
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
--- NOTE | 2021-10-21 09:52 | W.ED.CHESTPA ---
Documented by User: JOHANNA Matthews 10/21/21 09:54 HPI - Chest Pain General: Chief Complaint: Shortness of Breath/Dyspnea Stated Complaint: Exreme SOB pt states Left lung hurts Time Seen by Provider: 10/21/21 10:24 Source: patient Mode of arrival: ambulatory Limitations: no limitations History of Present Illness: HPI narrative: Patient is a 55-year-old male who presents to ED today with a complaint of left-sided chest pain that began approximately 3 days ago. Patient tested positive for COVID on 10/11 by rapid antigen. He was seen in the ED on 10/13 and discharged home with home O2. Patient states he has not had to increase his oxygen at all. He feels like shortness of breath is slowly improving although still gets fairly short of breath with exertion. Patient does have a history of COPD. He is not running fevers. Feels like chest pain catches with certain movements. [facility] ED PFSH: Medical History Bloating BPH loc w urin obs/LUTS Colon polyp COPD (chronic obstructive pulmonary disease) with emphysema COVID-19 Gastritis and duodenitis GERD (gastroesophageal reflux disease) GERD with esophagitis Hyperlipidemia, mixed Screening PSA (prostate specific antigen) Surgical History H/O colonoscopy with polypectomy Family History Family/Other No problems noted. Mother , AT AGE 83 No problems noted. Father , AT AGE 67 No problems noted. Social History Second hand smoke exposure: No Smoking risk assessment/counseling performed?: No Alcohol intake: never Desire information about alcohol rehabilitation?: No Counseling given: No Desire information about substance/drug rehabilitation?: No Counseling given: No Adopted: No Caregiver/support person: No Lives independently: Yes Household members: none Housing: House Marital status: Number of children: 2 service: No Current occupational status: disabled Current occupational exposures/hazards: No Pets and animals: Yes Pets & animals: cat(s) History of recent travel: No Current gender identity: Male Physical Exam Const: COMMON NORMALS: no acute distress and no limitations GENERAL APPEARANCE: cooperative Resp: COMMON NORMALS: normal respiratory effort AUSCULTATION: diminished lung sounds Cardio: COMMON NORMALS: regular rate and regular rhythm RATE: regular rate RHYTHM: regular rhythm Course Vital Signs: Vital signs: Vital Signs Temperature 98.0 F 10/23/21 12:00 Pulse Rate 74 10/23/21 17:49 Respiratory Rate 16 10/23/21 17:49 Blood Pressure 125/67 10/23/21 17:49 Pulse Oximetry 95 10/23/21 17:49 MDM - Chest Pain MDM Narrative: Medical decision making narrative: Brief history and physical exam was performed as part of the triage process. Due to current ED wait time patient will be placed in waiting room until a room becomes available. Explained to patient he/she will be seen in order of severity. Patient is currently safe to wait in the waiting room until we can get them placed. Patient informed that if condition worsens at any time to please let the front of house manager know. Lab Data: Labs: Lab Results 10/21/21 10/21/21 10/21/21 10:55 10:55 10:55 WBC 15.6 10^3/uL H 10 ^3/uL (4.0-10.0) RBC 4.62 10^6/uL 10^6 /uL (4.1-5.3) Hgb 13.4 g/dL g/dL (11.7-16.6) Hct 40.4 % L % (42.0-52.0) MCV 87.4 fl fl (80-94) MCH 29.0 pg pg (28.0-34.0) MCHC 33.2 g/dL g/dL (30.0-36.0) RDW 13.5 % % (12.1-15.1) Plt Count 161 10^3/cmm 10^3 /cmm (130-400) MPV 10.7 fL H fL (7.4-10.4) Neut % (Auto) 77.6 % % Lymph % (Auto) 7.4 % % [place]once % (Auto) 10.1 % % Eos % (Auto) 0.4 % % Baso % (Auto) 0.2 % % Neut # (Auto) 12.09 10^3/uL H 1 0^3/uL (1.8-7.7) Lymph # (Auto) 1.2 10^3/uL 10^3/ uL (0.8-4.8) Ponce # (Auto) 1.6 10^3/uL H 10^ 3/uL (0.2-0.9) Eos # (Auto) 0.1 10^3/uL 10^3/ uL (0.0-0.8) Baso # (Auto) 0.0 10^3/uL 10^3/ uL (0.0-0.1) Nucleated RBC % (a uto) 0 % % Nucleated RBCs # 0.0 /100WBC /100W BC D-Dimer Sodium 137 mmol/L mmol/L (136-145) Potassium 3.5 mmol/L mmol/L (3.5-5.1) Chloride 99 mmol/L mmol/L (98-107) Carbon Dioxide 21 mmol/L L mmol/ L (22-29) Anion Gap 20.5 H (5-19) BUN 12 mg/dL mg/dL (6-20) Creatinine 0.8 mg/dL mg/dL (0.7-1.2) GFR Calculation 100.0 mL/min mL/m in (90-130) Glucose 103 mg/dL mg/dL (65-115) Calculated Osmolal ity 284 mOsm/kg L mOs m/kg (285-295) Lactic Acid 0.8 mmol/L mmol/L (0.5-2.2) Calcium 8.1 mg/dL L mg/dL (8.5-10.5) Iron TIBC % Saturation Unsat Iron Binding Total Bilirubin 0.7 mg/dL mg/dL (0.15-1.2) AST 37 U/L U/L (0-40) ALT 122 U/L H U/L (0-41) Alkaline Phosphata se 159 IU/L H IU/L (40-130) Lactate Dehydrogen ase Creatine Kinase Troponin T Baselin e Troponin T 120 Min [place] Troponin T C-Reactive Protein 225.0 mg/L H mg/L (0.0-4.9) NT-Pro-B Natriuret Pep Total Protein 6.8 g/dL g/dL (6.6-8.7) Albumin 3.4 g/dL L g/dL (3.5-5.2) Globulin 3.4 g/dL g/dL (1.3-4.6) Procalcitonin 0.17 ng/mL ng/mL (0-0.5) TSH 10/21/21 10/21/21 10/21/21 10:55 10:55 10:55 WBC RBC Hgb Hct MCV MCH MCHC RDW Plt Count MPV Neut % (Auto) Lymph % (Auto) [place] % (Auto) Eos % (Auto) Baso % (Auto) Neut # (Auto) Lymph # (Auto) [place] # (Auto) Eos # (Auto) Baso # (Auto) Nucleated RBC % (a uto) Nucleated RBCs # D-Dimer 6.66 ug/mIFEU H u g/mIFEU (0-0.59) Sodium Potassium Chloride Carbon Dioxide Anion Gap BUN Creatinine GFR Calculation Glucose Calculated Osmolal ity Lactic Acid Calcium Iron 21 ug/dL L ug/dL (59-158) TIBC 212 mcg/dl mcg/dl % Saturation 9.9 % L % (20-50) Unsat Iron Binding 191 ug/dL ug/dL (112-347) Total Bilirubin AST ALT Alkaline Phosphata se Lactate Dehydrogen ase Creatine Kinase Troponin T Baselin e 9 ng/L ng/L (0-15) Troponin T 120 Min [place] Troponin T C-Reactive Protein NT-Pro-B Natriuret Pep 25 pg/mL pg/mL (0-125) Total Protein Albumin Globulin Procalcitonin [facility] 10/21/21 10/21/21 10:55 12:34 WBC RBC Hgb Hct MCV MCH MCHC RDW Plt Count MPV Neut % (Auto) Lymph % (Auto) [place] % (Auto) Eos % (Auto) Baso % (Auto) Neut # (Auto) Lymph # (Auto) [place] # (Auto) Eos # (Auto) Baso # (Auto) Nucleated RBC % (a uto) Nucleated RBCs # D-Dimer Sodium Potassium Chloride Carbon Dioxide Anion Gap BUN Creatinine GFR Calculation Glucose Calculated Osmolal ity Lactic Acid Calcium Iron TIBC % Saturation Unsat Iron Binding Total Bilirubin AST ALT Alkaline Phosphata se Lactate Dehydrogen ase 307 U/L H U/L (135-225) Creatine Kinase 26 U/L L U/L (39-308) Troponin T Baselin e Troponin T 120 Min [place] 10.90 ng/L ng/L (0-15) Delta Troponin T 1.90 ABS# ABS# (0-10) C-Reactive Protein NT-Pro-B Natriuret Pep Total Protein Albumin Globulin Procalcitonin TSH 1.45 uIU/mL uIU/m L (0.27-4.20) Discharge Plan Discharge Patient Disposition: Admitted As Inpatient Admit Provider: Sanjay Adame Clinical Impression: Pulmonary embolism, COVID-19, COPD (chronic obstructive pulmonary disease) Condition: Stable Discharge Diet: Cardiac Discharge Activity: Increase activity as tolerated and Oxygen as instructed Coding Level of Care Code ED Food Product Inspector for Chg Fwd Exam Expanded Problem Focused Documented by User: Floyd Camacho DO 10/24/21 08:47 HPI - Chest Pain General: Chief Complaint: Shortness of Breath/Dyspnea Stated Complaint: Exreme SOB pt states Left lung hurts Time Seen by Provider: 10/21/21 10:24 History of Present Illness: HPI narrative: 85-year-old male presents emergency room he was seen on for respiratory complaints was positive for Covid and discharged home on dexamethasone and oxygen. He returns today complaining of left-sided chest pain worsening shortness of breath. He is not had any increased in sputum production he still has intermittent subjective fevers. No radiation of the pain is worse when he takes a deep breath. Patient has a known history of COPD was not on oxygen prior to the diagnosis of COVID. MD complaint: chest pain Pertinent past history: other (Recently diagnosed with COVID) Onset (ago): hour(s) Timing of current episode: constant Pain location: left chest Pain radiation: none Severity: moderate Quality: tightness and aching Relieving factors: nothing Associated symptoms: Deny abdominal pain, diaphoresis, dyspnea, fever(s), leg edema, nausea, palpitations, sense of impending doom, syncope or vomiting Treatment prior to arrival: none Review of Systems Const: Denies: fever(s) or diaphoresis ENMT: Denies: throat pain, ear or mastoid pain, nasal discharge or nasal congestion Card: Denies: palpitations or syncope Resp: Denies: dyspnea GI: Denies: abdominal pain, nausea or vomiting : Denies: flank pain, dysuria, urinary frequency or urinary urgency Skin/Breast: Denies: rash or pruritus PFSH ED PFSH: Medical History Bloating BPH loc w urin obs/LUTS Colon polyp COPD (chronic obstructive pulmonary disease) with emphysema COVID-19 Gastritis and duodenitis GERD (gastroesophageal reflux disease) GERD with esophagitis Hyperlipidemia, mixed Screening PSA (prostate specific antigen) Surgical History H/O colonoscopy with polypectomy Family History Family/Other No problems noted. Mother , AT AGE 83 No problems noted. Father , AT AGE 67 No problems noted. Social History Second hand smoke exposure: No Smoking risk assessment/counseling performed?: No Alcohol intake: never Desire information about alcohol rehabilitation?: No Counseling given: No Desire information about substance/drug rehabilitation?: No Counseling given: No Adopted: No Caregiver/support person: No Lives independently: Yes Household members: none Housing: House Marital status: Number of children: 2 service: No Current occupational status: disabled Current occupational exposures/hazards: No Pets and animals: Yes Pets & animals: cat(s) History of recent travel: No Current gender identity: Male Physical Exam Const: GENERAL APPEARANCE: cooperative and comfortable ORIENTATION/CONSCIOUSNESS: Yes awake, Yes oriented to person, Yes oriented to place and Yes oriented to time HENMT: COMMON NORMALS: normocephalic, atraumatic and hearing grossly normal bilaterally HEAD & SCALP: normocephalic and atraumatic Neck/C-Spine: COMMON NORMALS: no JVD Resp: COMMON NORMALS: normal respiratory effort, No retractions, No use of accessory muscles and clear to auscultation bilaterally AUSCULTATION: clear to auscultation bilaterally Cardio: COMMON NORMALS: no JVD, regular rate, regular rhythm and No murmurs present (Cardio) RATE: regular rate RHYTHM: regular rhythm GI: COMMON NORMALS: Soft to palpation and No hepatosplenomegaly present AUSCULTATION: Yes normoactive bowel sounds PALPATION: Yes Soft to palpation, No Tenderness to palpation present (GI), No Guarding due to palpation present (GI) and Yes No hepatosplenomegaly present Extremity: COMMON NORMALS: normal to inspection, capillary refill normal, no clubbing, cyanosis or edema, no calf tenderness and no pedal edema Neuro: SENSORIUM/ORIENTATION: Yes oriented to person, Yes oriented to place and Yes oriented to time Skin: COMMON NORMALS: no rashes or lesions noted GENERAL SKIN EXAM: no rashes or lesions noted Course Vital Signs: Vital signs: Vital Signs Temperature 98.0 F 10/23/21 12:00 Pulse Rate 74 10/23/21 17:49 Respiratory Rate 16 10/23/21 17:49 Blood Pressure 125/67 10/23/21 17:49 Pulse Oximetry 95 10/23/21 17:49 MDM - Chest Pain Lab Data: Labs: Lab Results 10/21/21 10/21/21 10/21/21 10:55 10:55 10:55 WBC 15.6 10^3/uL H 10 ^3/uL (4.0-10.0) RBC 4.62 10^6/uL 10^6 /uL (4.1-5.3) Hgb 13.4 g/dL g/dL (11.7-16.6) Hct 40.4 % L % (42.0-52.0) MCV 87.4 fl fl (80-94) MCH 29.0 pg pg (28.0-34.0) MCHC 33.2 g/dL g/dL (30.0-36.0) RDW 13.5 % % (12.1-15.1) Plt Count 161 10^3/cmm 10^3 /cmm (130-400) MPV 10.7 fL H fL (7.4-10.4) Neut % (Auto) 77.6 % % Lymph % (Auto) 7.4 % % [place]once % (Auto) 10.1 % % Eos % (Auto) 0.4 % % Baso % (Auto) 0.2 % % Neut # (Auto) 12.09 10^3/uL H 1 0^3/uL (1.8-7.7) Lymph # (Auto) 1.2 10^3/uL 10^3/ uL (0.8-4.8) Ponce # (Auto) 1.6 10^3/uL H 10^ 3/uL (0.2-0.9) Eos # (Auto) 0.1 10^3/uL 10^3/ uL (0.0-0.8) Baso # (Auto) 0.0 10^3/uL 10^3/ uL (0.0-0.1) Nucleated RBC % (a uto) 0 % % Nucleated RBCs # 0.0 /100WBC /100W BC D-Dimer Sodium 137 mmol/L mmol/L (136-145) Potassium 3.5 mmol/L mmol/L (3.5-5.1) Chloride 99 mmol/L mmol/L (98-107) Carbon Dioxide 21 mmol/L L mmol/ L (22-29) Anion Gap 20.5 H (5-19) BUN 12 mg/dL mg/dL (6-20) Creatinine 0.8 mg/dL mg/dL (0.7-1.2) GFR Calculation 100.0 mL/min mL/m in (90-130) Glucose 103 mg/dL mg/dL (65-115) Calculated Osmolal ity 284 mOsm/kg L mOs m/kg (285-295) Lactic Acid 0.8 mmol/L mmol/L (0.5-2.2) Calcium 8.1 mg/dL L mg/dL (8.5-10.5) Iron TIBC % Saturation Unsat Iron Binding Total Bilirubin 0.7 mg/dL mg/dL (0.15-1.2) AST 37 U/L U/L (0-40) ALT 122 U/L H U/L (0-41) Alkaline Phosphata se 159 IU/L H IU/L (40-130) Lactate Dehydrogen ase Creatine Kinase Troponin T Baselin e Troponin T 120 Min [place] Troponin T C-Reactive Protein 225.0 mg/L H mg/L (0.0-4.9) NT-Pro-B Natriuret Pep Total Protein 6.8 g/dL g/dL (6.6-8.7) Albumin 3.4 g/dL L g/dL (3.5-5.2) Globulin 3.4 g/dL g/dL (1.3-4.6) Procalcitonin 0.17 ng/mL ng/mL (0-0.5) TSH 10/21/21 10/21/21 10/21/21 10:55 10:55 10:55 WBC RBC Hgb Hct MCV MCH MCHC RDW Plt Count MPV Neut % (Auto) Lymph % (Auto) [place] % (Auto) Eos % (Auto) Baso % (Auto) Neut # (Auto) Lymph # (Auto) [place] # (Auto) Eos # (Auto) Baso # (Auto) Nucleated RBC % (a uto) Nucleated RBCs # D-Dimer 6.66 ug/mIFEU H u g/mIFEU (0-0.59) Sodium Potassium Chloride Carbon Dioxide Anion Gap BUN Creatinine GFR Calculation Glucose Calculated Osmolal ity Lactic Acid Calcium Iron 21 ug/dL L ug/dL (59-158) TIBC 212 mcg/dl mcg/dl % Saturation 9.9 % L % (20-50) Unsat Iron Binding 191 ug/dL ug/dL (112-347) Total Bilirubin AST ALT Alkaline Phosphata se Lactate Dehydrogen ase Creatine Kinase Troponin T Baselin e 9 ng/L ng/L (0-15) Troponin T 120 Min [place] Troponin T C-Reactive Protein NT-Pro-B Natriuret Pep 25 pg/mL pg/mL (0-125) Total Protein Albumin Globulin Procalcitonin TSH 10/21/21 10/21/21 10:55 12:34 WBC RBC Hgb Hct MCV MCH MCHC RDW Plt Count MPV Neut % (Auto) Lymph % (Auto) [place] % (Auto) Eos % (Auto) Baso % (Auto) Neut # (Auto) Lymph # (Auto) [place] # (Auto) Eos # (Auto) Baso # (Auto) Nucleated RBC % (a uto) Nucleated RBCs # D-Dimer Sodium Potassium Chloride Carbon Dioxide Anion Gap BUN Creatinine GFR Calculation Glucose Calculated Osmolal ity Lactic Acid Calcium Iron TIBC % Saturation Unsat Iron Binding Total Bilirubin AST ALT Alkaline Phosphata se Lactate Dehydrogen ase 307 U/L H U/L (135-225) Creatine Kinase 26 U/L L U/L (39-308) Troponin T Baselin e Troponin T 120 Min [place] 10.90 ng/L ng/L (0-15) Delta Troponin T 1.90 ABS# ABS# (0-10) C-Reactive Protein NT-Pro-B Natriuret Pep Total Protein Albumin Globulin Procalcitonin TSH 1.45 uIU/mL uIU/m L (0.27-4.20) Discharge Plan Discharge Patient Disposition: Admitted As Inpatient Admit Provider: Sanjay Adame Clinical Impression: Pulmonary embolism, COVID-19, COPD (chronic obstructive pulmonary disease) Condition: Stable Discharge Diet: Cardiac Discharge Activity: Increase activity as tolerated and Oxygen as instructed Coding Level of Care Code ED Food Product Inspector for Chg Fwd Exam Expanded Problem Focused
[2021-10-21 11:07] LABS: Basophils % 0.2 %; Eosinophils # 0.1 10^3/uL (0.0-0.8); Eosinophils % 0.4 %; Hematocrit 40.4 % (42.0-52.0); Hemoglobin 13.4 g/dL (11.7-16.6); Lymphocytes # 1.2 10^3/uL (0.8-4.8); Lymphocytes % 7.4 %; Mean Corpuscular HGB Conc 33.2 g/dL (30.0-36.0); Mean Corpuscular Volume 87.4 fl (80-94); Mean Platelet Volume 10.7 fL (7.4-10.4); Monocytes # 1.6 10^3/uL (0.2-0.9); Monocytes % 10.1 %; Neutrophils # 12.09 10^3/uL (1.8-7.7); Neutrophils % 77.6 %; Nucleated Red Blood Cells % 0 %; Platelet Count 161 10^3/cmm (130-400); Red Blood Count 4.62 10^6/uL (4.1-5.3); Red Cell Distribution Width 13.5 % (12.1-15.1); White Blood Count 15.6 10^3/uL (4.0-10.0)
[2021-10-21 11:25] LABS: Troponin(5th) Baseline 9 ng/L (0-15)
[2021-10-21 11:29] LABS: D Dimer 6.66 ug/mIFEU (0-0.59); Lactic Sepsis W/Reflex 0.8 mmol/L (0.5-2.2)
[2021-10-21 11:30] LABS: Alanine Aminotransferase 122 U/L (0-41); Albumin Level 3.4 g/dL (3.5-5.2); Alkaline Phosphatase 159 IU/L (40-130); Anion Gap 20.5 (5-19); Aspartate Amino Transferase 37 U/L (0-40); Blood Urea Nitrogen 12 mg/dL (6-20); Calcium 8.1 mg/dL (8.5-10.5); Carbon Dioxide 21 mmol/L (22-29); Chloride 99 mmol/L (98-107); Globulin 3.4 g/dL (1.3-4.6); Glucose 103 mg/dL (65-115); Osmolality Calculated 284 mOsm/kg (285-295); Potassium 3.5 mmol/L (3.5-5.1); Sodium 137 mmol/L (136-145); Total Bilirubin 0.7 mg/dL (0.15-1.2); Total Protein 6.8 g/dL (6.6-8.7)
--- NOTE | 2021-10-21 11:31 | ECG_ITS ---
[facility] Test Date: 2021-10-21 Pat Name: Eugene Polk Department: Room: Gender: Male Supervisor [place]: : 1965 Requested By: Katie Mesa Order Number: [id number] Reading MD: TIFFANIE BARTON Measurements Intervals [place] Rate: 85 P: 52 GA: 147 QRS: 42 QRSD: 85 T: 51 QT: 354 QTc: 421 Interpretive Statements SINUS RHYTHM Compared to ECG 10/21/2021 10:59:27 No significant changes Electronically Signed On 10-22-2021 19:59:55 EXECUTIVE STEWARD by TIFFANIE BARTON [id number]
[2021-10-21 11:34] LABS: Procalcitonin 0.17 ng/mL (0-0.5)
--- NOTE | 2021-10-21 11:53 | CTR_ITS ---
PROCEDURE INFORMATION: Exam: CTA Chest With Contrast Exam date and time: 10/21/2021 11:53 AM Age: 55 years old Clinical indication: Shortness of breath; Additional info: Covid/elevated d dimer TECHNIQUE: Imaging protocol: Computed tomographic angiography of the chest with contrast. 3D rendering (Not supervised by radiologist): MIP and/or 3D reconstructed images were created by the technologist. Radiation optimization: All CT scans at this facility use at least one of these dose optimization techniques: automated exposure control; mA and/or kV adjustment per patient size (includes targeted exams where dose is matched to clinical indication); or iterative reconstruction. Contrast material: OMNI 350; Contrast volume: 95 ml; Contrast route: INTRAVENOUS (IV); COMPARISON: CT angio chest PE protcl [id number] 10/13/2021 1:22 PM RADIATION DOSE METRICS: Total DLP (mGy-cm): 522.73 FINDINGS: Pulmonary arteries: There are multiple filling defects in the segmental branches of the right middle lobe, left lingula and bilateral lobes due to multiple bilateral pulmonary emboli. Aorta: Unremarkable. No aortic aneurysm. No aortic dissection. Lungs: There are extensive bilateral pulmonary infiltrates which could be due to an interstitial viral pneumonia. Prominent bilateral pulmonary emphysema is present. Pleural spaces: Unremarkable. No pneumothorax. No pleural effusion. Heart: The heart is not enlarged. There is calcification of the coronary arteries. The RV/LV ratio is mildly elevated at 1.0. Lymph nodes: Unremarkable. No enlarged lymph nodes. Bones/joints: Degenerative changes are present in the spine with scattered sclerosis and small osteophytes. Soft tissues: Unremarkable. CT/CT angio chest PE protcl [id number] IMPRESSION: 1. Multiple bilateral pulmonary emboli to the right middle lobe, lingula and both lower lobes. 2. Mildly elevated RV/LV ratio at 1.0. 3. Prominent interstitial infiltrates consistent with viral pneumonia. 4. Pulmonary emphysema.
[2021-10-21] MEDS: iohexol 350 mg/mL 100 mL Btl IV (13:11)
[2021-10-21] MEDS: heparin 5,000 unit/mL INJ 1 mL 4000 UNIT IVP (14:45)
[2021-10-21] MEDS: heparin drip 25,000 UNIT/500 ML PREMIX 18.29 UNIT IV (14:47)
--- NOTE | 2021-10-21 15:41 | USR_ITS ---
PROCEDURE INFORMATION: Exam: US Duplex Lower Extremity Veins, Bilateral Exam date and time: 10/21/2021 3:41 PM Age: 55 years old Clinical indication: Other: Difficulty breathing, positive pulmonary embolism; Additional info: Dvt TECHNIQUE: Imaging protocol: Real-time duplex ultrasound of the extremities with 2-D singh scale, color Doppler flow and spectral waveform analysis with image documentation. Complete exam focused on the bilateral lower extremity veins. COMPARISON: No relevant prior studies available. FINDINGS: Right deep veins: The common femoral, femoral, proximal profunda femoral, popliteal, anterior tibial, posterior tibial, and peroneal veins are patent without thrombus. Normal compressibility and/or augmentation response. Right superficial veins: Saphenofemoral junction is patent without thrombus. Left deep veins: The common femoral, femoral, proximal profunda femoral, popliteal, anterior tibial, posterior tibial, and peroneal veins are patent without thrombus. Normal compressibility and/or augmentation response. Left superficial veins: Saphenofemoral junction is patent without thrombus. Soft tissues: Unremarkable as visualized. US/CV venous duplex [facility] [id number] IMPRESSION: No evidence for deep venous thrombosis.
--- NOTE | 2021-10-21 15:48 | PM.HP ---
Providers/Chief Complaint Primary Care Provider: Sarah Armendariz, PLASTER PATTERN CASTER-C Chief Complaint: Exreme SOB pt states Left lung hurts History of Present Illness Eugene Polk is a 55 year old male with past medical history of COPD, BPH, not on home oxygen who was previously diagnosed of COVID-19 on 10/11 by rapid antigen and was discharged home on 10/13 from the ER after home oxygen evaluation on oral dexamethasone presents to the ER today after feeling really short of breath mostly on exertion for last 3 to 4 days. He denies running any fever but does complain of chest pain on taking a deep breath. Blood work in the ER showed a white count of 15.6, hemoglobin 13.4, D-dimer of 6.6, AST/ALT of 37/122, alkaline phosphatase of 159, CRP of 225, pro-Javed of 0.17, CTA positive for pulmonary embolism with detail of results as below. Review of Systems General: Reports: 10 or more systems reviewed and unremarkable except in HPI and below Const: Denies: fever(s), chills, body aches, change in appetite, change in weight, malaise, night sweats, diaphoresis, change in sleep pattern, daytime sleepiness or snoring Eyes: Denies: change in vision, blurry vision, photophobia, eye discomfort or eye discharge ENMT: Denies: throat pain, enlarged tonsils, hoarseness, mouth pain, oral sores, dry mouth, tinnitus, nasal congestion or post nasal drip Card: Denies: chest pain, palpitations, irregular heart rhythm, edema, swelling of feet/ankles, lightheadedness, syncope, pre-syncope, dyspnea on exertion, orthopnea, leg pain with exertion or acrocyanosis Resp: Denies: dyspnea, productive cough, non-productive cough, wheezing, stridor, pain on inspiration, change in phlegm color, hemoptysis or chest congestion GI: Denies: abdominal pain, nausea, vomiting, hematemesis, coffee ground emesis, dysphagia, heartburn, diarrhea, constipation, bloating, GI cramping, change in bowel habits, pain on defecation, hematochezia or melena : Denies: flank pain, difficulty urinating, dysuria, urinary frequency, urinary urgency, urinary hesitancy, urinary dribbling, difficulty starting urination, change in urine stream, nocturia or hematuria Musc: Denies: neck pain, back pain, extremity pain, joint pain, joint swelling, joint redness, joint stiffness or limited range of motion Neuro: Denies: headache(s), numbness in extremities, weakness in extremities, sensory changes, lack of coordination, difficulty walking, frequent falls, dizziness, vertigo, confusion, Slurred speech present, difficulty communicating thoughts or seizure-like activity Psych: Denies: anxiety, depression, mood swings, panic attacks, hopelessness or irritability Endo: Denies: polyuria, polydipsia, tired all the time, cold intolerance, excessive sweating, flushing or heat intolerance Smith/Lymph: Denies: easy bruising or easy bleeding All/Imm: Denies: tongue swelling, facial swelling or acute wheezing Medications/Allergies Home Medications Medication Instructions Recorded Confirmed Last Taken Type omeprazole 40 mg capsule,delayed See Rx Instructions .ROUTE 04/24/21 10/21/21 10/20/21 Rx release .COMPLEX #30 cap budesonide 160 mcg-glycopyr 9 2 inh INHALATION BID #10.7 g 08/07/21 10/21/21 Unknown Rx mcg-formot 4.8 mcg/actuation HFA inhaler lovastatin 20 mg tablet 20 mg PO DAILY #90 tab 08/07/21 10/21/21 10/20/21 Rx sucralfate 1 gram tablet 1 g PO .4 times day #360 tab 08/07/21 10/21/21 10/20/21 Rx tamsulosin 0.4 mg capsule 0.4 mg PO DAILY #90 cap 08/07/21 10/21/21 10/20/21 Rx albuterol sulfate 2 inh INHALATION Q4H PRN #18 gm 10/11/21 10/21/21 Unknown Rx albuterol sulfate 2.5 mg INHALATION Q4H PRN #75 ml 10/16/21 10/21/21 Unknown Rx Allergies Allergy/AdvReac Type Severity Reaction Status Date / Time No Known Allergies Allergy Verified 10/21/21 08:31 PFSH Acute PFSH: Medical History (Updated 10/21/21 @ 15:50 by Sanjay Adame MD) Bloating BPH loc w urin obs/LUTS Colon polyp COPD (chronic obstructive pulmonary disease) with emphysema COVID-19 Gastritis and duodenitis GERD (gastroesophageal reflux disease) GERD with esophagitis Hyperlipidemia, mixed Screening PSA (prostate specific antigen) Surgical History H/O colonoscopy with polypectomy Family History Family/Other No problems noted. Mother , AT AGE 83 No problems noted. Father , AT AGE 67 No problems noted. Social History Second hand smoke exposure: No Smoking risk assessment/counseling performed?: No Alcohol intake: never Desire information about alcohol rehabilitation?: No Counseling given: No Desire information about substance/drug rehabilitation?: No Counseling given: No Adopted: No Caregiver/support person: No Lives independently: Yes Household members: none Housing: House Marital status: Number of children: 2 service: No Current occupational status: disabled Current occupational exposures/hazards: No Pets and animals: Yes Pets & animals: cat(s) History of recent travel: No Current gender identity: Male Vitals/I&O/Wt Last Vital Signs Temp 97.8 F 10/21/21 08:31 Pulse 119 H 10/21/21 14:55 Resp 22 H 10/21/21 14:55 BP 134/87 10/21/21 14:55 Pulse Ox 97 10/21/21 14:55 Weight last 48 hrs Weight 65.317 kg Physical Exam Narrative: EXAM NARRATIVE: General: No acute distress, AO x3 HEENT: PERRLA, pupils bilaterally equal and reactive Chest: Bilateral bronchial breath sounds, rhonchi present diffusely all over the lung kate, equal good air entry bilaterally CVS: S1-S2 regular, no murmurs, no tachycardia, no gallops, no rubs Abdomen: Soft, nontender, no organomegaly, bowel sounds present Neuro: No focal deficits, no facial deformity, AO x3, power 5/5 in all limbs Data : 10/21/21 10:55 10/21/21 10:55 A&P Assessment and plan (1) COVID-19: Status: Acute (2) Pulmonary embolism: Status: Acute (3) COPD (chronic obstructive pulmonary disease) with emphysema: Status: Chronic (4) Hyperlipidemia, mixed: Status: Chronic Additional A&P Information Hypoxia secondary COVID-19 pneumonia and bilateral pulmonary embolism: Heparin drip for pulmonary embolism. We will transition over to oral Eliquis within next 48 hours. Echocardiogram to rule out right heart strain. Gentle IV hydration with normal saline 50 cc/h. Hypoxia secondary to COVID-19 pneumonia: Mild to moderate disease. Oxygen supplementation keeping saturation over 88%. Dexamethasone 6 mg daily. Remdesivir to finish a 5-day course. Vitamin C, zinc. DuoNebs every 6 hour, budesonide twice daily Pulmonary toilet with incentive spirometry flutter valve. We will monitor inflammatory markers including D-dimer, CRP every 48 hours. If getting elevated will dose Actemra. Patient was made aware of the same and he has given verbal consent. D-dimer elevated. CTA positive for pulmonary embolism. Continue with heparin drip as above. Will monitor for anemia or blood loss. Check sputum culture, procalcitonin, urine Legionella, bacterial antigen, blood culture. Procalcitonin negative. For now continue with Levaquin to finish a 5-day course. For now hold off on antibiotics. Given hypoxia will try to keep patient as negative as possible. Patient clinically mildly dehydrated currently. For now continue with gentle hydration. Strict input output charting, daily weights. Full code. Cardiac diet. Famotidine for PUD prophylaxis. Admit to CSU. Attestations Medical Necessity Statement*: Admission for more than 2 midnights for management of hypoxia secondary to COVID-19 pneumonia, bilateral pulmonary embolism Time Spent in Patient Care: Greater than 35 minutes (>than 50% of time spent in counselling and/or direct pt care on unit). Coding Level of Care Code Acute Machine Hamper Maker for [facility] Fwd Diagnoses COVID-19 U07.1 Pulmonary embolism I26.99 COPD (chronic obstructive pulmonary disease) with emphysema J43.9 Hyperlipidemia, mixed E78.2
[2021-10-21 16:21] LABS: Iron 21 ug/dL (59-158); NT Pro B Type Natriuretic Pept 25 pg/mL (0-125); Percent Saturation 9.9 % (20-50); Total Iron Binding Capacity 212 mcg/dl; Unsaturated Iron Binding 191 ug/dL (112-347)
[2021-10-21 16:25] LABS: Creatine Phosphokinase 26 U/L (39-308); Lactate Dehydrogenase 307 U/L (135-225); Thyroid Stimulating Hormone 1.45 uIU/mL (0.27-4.20)
[2021-10-21 17:12] LABS: Troponin 5 6HR 11.48 ng/L (0-15); Troponin 5 6HR Delta 2.48 ng/L (0-12)
[2021-10-21] MEDS: metoprolol tartrate 25 mg Tablet PO ×2 (17:50→20:47)
[2021-10-21] MEDS: dexamethasone 4 mg/mL INJ 6 MG IVP (17:50)
[2021-10-21] MEDS: remdesivir 200 MG in sodium chloride 0.9% (100 ml) 60 ML 100 MG IV (17:51)
[2021-10-21] MEDS: morphine 4 mg/mL SDV 1 mL 2 MG IVP (17:51)
[2021-10-21] MEDS: sodium chlor 0.9% + KCl 20 mEq 20 MEQ/1,000 ML BAG 50 MEQ IV (20:47)
[2021-10-21] MEDS: sucralfate 1 gm Tablet PO (20:48)
[2021-10-21] MEDS: ascorbic acid 500 mg Tablet 1000 MG PO (20:48)
[2021-10-21] MEDS: benzonatate 100 mg Capsule PO (20:48)
[2021-10-21] MEDS: famotidine 20 mg/2 mL INJ IVP (20:48)
[2021-10-21] MEDS: ferrous gluconate 324 mg Tablet PO (20:48)
[2021-10-21 20:58] LABS: Partial Thromboplastin Time 69.2 SECONDS (23.9-36.7)
--- NOTE | 2021-10-21 21:06 | PC.NURSE ---
PTT 69.2. No change required for heparin drip.
[2021-10-21] MEDS: ipratropium-albuterol 3 mL Neb INHALATION (21:38)
[2021-10-21] MEDS: budesonide 0.5 mg/2 mL Neb INHALATION (21:40)
--- NOTE | 2021-10-21 22:33 | PC.NURSE ---
Admit Note Patient admitted to CSU room 105 from ED via stretcher at approximately 1915. Covering service notified. Patient presents with increased SOB with exertion. Orders reviewed & will continue to monitor. Patient and/or architectural representative oriented to environment, equipment, and informed of the following as found in the admission booklet: patient rights & responsibilities, visitor policy, hand and respiratory hygiene practice. Other education includes: tessalon edwar and heparin. Patient verbalized complete understanding. Patient currently on 4L NC. Patient very pleasant. Requesting to go home tomorrow. Instructed patient on need to treat diagnosed PE. Patient verbalized understanding. Will continue to monitor.
[2021-10-22] VITALS (15 sets, daily range): BP systolic 106–129; BP diastolic 60–82; PULSE 61–90; RESP 16–21; TEMP 36.5; O2SAT 92–100
[2021-10-22] MEDS: ipratropium-albuterol 3 mL Neb INHALATION ×4 (02:49→21:37)
[2021-10-22 03:22] LABS: Basophils % 0.2 %; Eosinophils % 0.1 %; Hemoglobin 12.2 g/dL (11.7-16.6); Lymphocytes # 1.2 10^3/uL (0.8-4.8); Mean Corpuscular Volume 90.9 fl (80-94); Mean Platelet Volume 11.4 fL (7.4-10.4); Monocytes # 0.9 10^3/uL (0.2-0.9); Neutrophils # 14.82 10^3/uL (1.8-7.7); Neutrophils % 84.7 %; Nucleated Red Blood Cells % 0 %; Platelet Count 189 10^3/cmm (130-400); Red Blood Count 4.07 10^6/uL (4.1-5.3); Red Cell Distribution Width 13.6 % (12.1-15.1); White Blood Count 17.5 10^3/uL (4.0-10.0)
[2021-10-22 03:43] LABS: Partial Thromboplastin Time 82.6 SECONDS (23.9-36.7)
[2021-10-22 03:48] LABS: D Dimer 4.16 ug/mIFEU (0-0.59)
[2021-10-22 03:53] LABS: Aspartate Amino Transferase 28 U/L (0-40); Blood Urea Nitrogen 15 mg/dL (6-20); Carbon Dioxide 22 mmol/L (22-29); Globulin 3.6 g/dL (1.3-4.6); Total Bilirubin 0.5 mg/dL (0.15-1.2); Total Protein 6.7 g/dL (6.6-8.7)
[2021-10-22 04:10] LABS: Glomerular Filtration Rate 87.3 mL/min (90-130)
[2021-10-22 04:32] LABS: Anion Gap 19.4 (5-19); Chloride 99 mmol/L (98-107); Potassium 4.4 mmol/L (3.5-5.1); Sodium 136 mmol/L (136-145)
[2021-10-22 04:33] LABS: Alanine Aminotransferase 98 U/L (0-41); Albumin Level 3.1 g/dL (3.5-5.2); Alkaline Phosphatase 182 IU/L (40-130); Calcium 8.2 mg/dL (8.5-10.5); Glucose 132 mg/dL (65-115); Osmolality Calculated 285 mOsm/kg (285-295)
[2021-10-22 05:09] LABS: C Reactive Protein 278.4 mg/L (0.0-4.9); Chol HDL Ratio 3.34 mg/dL (1.0-5.00); Cholesterol 127 mg/dL (0-200); HDL Cholesterol 38 mg/dL (60-100); LDL Cholesterol Calculated 64 mg/dL (50-129); Triglycerides 125 mg/dL (0-150); VLDL Cholestrol Calculation 25 mg/dL (0-30)
--- NOTE | 2021-10-22 05:40 | PC.NURSE ---
Dr Tao in to see patient. Doctor performed blood draw for PTT from right groin. Only able to obtain blood for PTT. No other labs. Doctor to attempt central line placement.
[2021-10-22] MEDS: famotidine 20 mg/2 mL INJ IVP ×2 (05:57→17:50)
[2021-10-22] MEDS: sucralfate 1 gm Tablet PO ×3 (05:57→20:29)
--- NOTE | 2021-10-22 06:00 | XRR_ITS ---
PROCEDURE INFORMATION: Exam: XR Chest Exam date and time: 10/22/2021 6:00 AM Age: 55 years old Clinical indication: Shortness of breath; Additional info: Covid TECHNIQUE: Imaging protocol: XR of the chest. Views: 1 view. COMPARISON: CR (CHEST, ) 10/21/2021 10:10 AM FINDINGS: Lungs: There is stable bibasilar pulmonary infiltrates and atelectasis. Pleural spaces: Unremarkable. No pleural effusion. No pneumothorax. Heart/Mediastinum: Unremarkable. No cardiomegaly. Bones/joints: Unremarkable. XR/XR chest 1V portable [id number] IMPRESSION: Stable bibasilar pulmonary infiltrates and atelectasis.
[2021-10-22 07:06] LABS: Urine Color Yellow (Yellow); pH Urine 5 (5-7)
[2021-10-22 07:07] LABS: Blood Urine Neg (Negative); Glucose Urine UA Trace (Normal); Ketones Urine 1+ (Negative); Nitrate Urine Negative (Negative); Protein Urine Trace (Negative); Specific Gravity, Urine 1.025 (1.005-1.030)
[2021-10-22 07:08] LABS: Bilirubin Urine Neg (Negative); Leukocyte Esterase Urine Negative (Negative); Urobilinogen Urine 1 mg/dL (Negative)
[2021-10-22 07:09] LABS: Add Urine Culture? No; Add Urine Microscopic? YES; Bacteria Urine 2+ /hpf; Mucus Urine TRACE /hpf; WBC Urine 0-4 /hpf (0-5)
[2021-10-22] MEDS: ascorbic acid 500 mg Tablet 1000 MG PO (08:44)
[2021-10-22] MEDS: tamsulosin 0.4 mg Capsule PO (08:44)
[2021-10-22] MEDS: ferrous gluconate 324 mg Tablet PO ×2 (08:45→17:47)
[2021-10-22] MEDS: zinc gluconate 50 mg Tablet PO (08:45)
[2021-10-22] MEDS: benzonatate 100 mg Capsule PO ×3 (08:45→20:28)
[2021-10-22] MEDS: atorvastatin 40 mg Tablet 20 MG PO (08:45)
[2021-10-22] MEDS: pantoprazole DR 40 mg Tablet PO (08:45)
[2021-10-22] MEDS: metoprolol tartrate 25 mg Tablet PO ×2 (08:50→20:29)
[2021-10-22 10:29] LABS: Erythrocyte Sedimentation Rate 68 mm/hr (0-10)
[2021-10-22] MEDS: budesonide 0.5 mg/2 mL Neb INHALATION ×2 (10:41→21:36)
[2021-10-22] MEDS: levoFLOXacin 500 mg Tablet PO (10:50)
[2021-10-22] MEDS: enoxaparin 80 mg/0.8 mL Syringe 70 MG SUBCUT ×2 (10:50→20:29)
--- NOTE | 2021-10-22 12:20 | PM.PN ---
Subjective Subjective: Interval history: No acute events overnight. Denies any nausea, vomiting, headache. Has remained on heparin drip. On examination on 2 L saturating 95%. States chest pain is gone. Looks comfortable today. Vitals/I&O/Wt Last Vital Signs Temp 97.6 F 10/21/21 23:35 Pulse 89 10/22/21 11:15 Resp 16 10/22/21 11:15 BP 129/60 10/22/21 08:15 Pulse Ox 93 10/22/21 11:15 10/21/21 10/22/21 10/22/21 22:59 06:59 14:59 Intake Total 455.532 / 455.532 143.862 / 599.394 843.784 / 843.784 Output Total 300 / 300 250 / 250 Balance 455.532 / 455.532 -156.138 / 299.394 593.784 / 593.784 Weight last 48 hrs Weight 71.395 kg Weight 66.088 kg Weight 65.317 kg Physical Exam Narrative: EXAM NARRATIVE: General: No acute distress, AO x3 HEENT: PERRLA, pupils bilaterally equal and reactive Chest: Bilateral bronchial breath sounds, rhonchi present diffusely all over the lung kate, equal good air entry bilaterally CVS: S1-S2 regular, no murmurs, no tachycardia, no gallops, no rubs Abdomen: Soft, nontender, no organomegaly, bowel sounds present Neuro: No focal deficits, no facial deformity, AO x3, power 5/5 in all limbs Data : 10/22/21 03:00 10/22/21 03:00 Micro: Microbiology 10/21/21 20:05 MRSA Culture - Final Nose 10/22/21 05:23 Bacterial Antigens - Final Urine Kidney 10/22/21 05:23 Legionella Urinary Antigen - Final Urine,Voided 10/21/21 15:00 Blood Culture - Preliminary Blood SPECIMEN COLLECTED 10/21/21 18:07 Blood Culture - Preliminary Blood SPECIMEN COLLECTED A&P Assessment and plan (1) COVID-19: Status: Acute (2) Pulmonary embolism: Status: Acute (3) COPD (chronic obstructive pulmonary disease) with emphysema: Status: Chronic (4) Hyperlipidemia, mixed: Status: Chronic Additional A&P Information Hypoxia secondary COVID-19 pneumonia and bilateral pulmonary embolism: Switch from heparin drip to full dose Lovenox for milligram per KG body weight every 12 hourly as per creatinine clearance. We will transition over to oral Eliquis within next 48 hours. Echocardiogram to rule out right heart strain. Still pending. Stop IV fluids as patient is hemodynamically stable now, tachycardia resolved, tolerating oral diet. Hypoxia secondary to COVID-19 pneumonia: Mild to moderate disease. Oxygen supplementation keeping saturation over 88%. Dexamethasone 6 mg daily. Remdesivir to finish a 3-5 day course. Vitamin C, zinc. DuoNebs every 6 hour, budesonide twice daily Pulmonary toilet with incentive spirometry flutter valve. We will monitor inflammatory markers including D-dimer, CRP every 48 hours. If getting elevated will dose Actemra. Patient was made aware of the same and he has given verbal consent. CRP elevated today. Patient requiring less oxygen supplementation so for now we will hold off on given Actemra. D-dimer elevated. CTA positive for pulmonary embolism. Full dose Lovenox. Will monitor for anemia or blood loss. Sputum culture pending, procalcitonin, urine Legionella bacterial antigen negative. Blood cultures so far negative. For now continue with Levaquin to finish a 5-day course. Given hypoxia will try to keep patient as negative as possible. Hold off on any further diuresis or fluid. Strict input output charting, daily weights. Full code. Cardiac diet. Famotidine for PUD prophylaxis. Attestations Medical Necessity Statement*: Requires further hospitalization for management of hypoxia secondary COVID-19 pneumonia, bilateral pulmonary embolism Time Spent in Patient Care: Greater than 35 minutes (>than 50% of time spent in counselling and/or direct pt care on unit). Coding Level of Care Code Acute Dedicated Owner Operator for [facility] Diagnoses COVID-19 U07.1 Pulmonary embolism I26.99 COPD (chronic obstructive pulmonary disease) with emphysema J43.9 Hyperlipidemia, mixed E78.2
--- NOTE | 2021-10-22 14:00 | USCV_ITS ---
Eugene Polk Age: 55 Gender: M : 1965 Exam Date: 10/22/2021 10:33 Ordering Phys: Floyd Camacho DO Technologist: RIKKI Exam Location: [facility] [place] Indication: Right sided heart strain due to PE BP: 129 / 60 HR: 75 Rhythm: Sinus Technical Quality: Fair MEASUREMENTS (Male / Female) Normal Values 2D ECHO LV Diastolic Diameter PLAX 4.1 cm 4.2 - 5.9 / 3.9 - 5.3 cm LV Systolic Diameter PLAX 3.0 cm LV Chamber Size 3.5 cm IVS Diastolic Thickness 1.2 cm 0.6 - 1.0 / 0.6 - 0.9 cm IVS Systolic Thickness 1.8 cm LVPW Diastolic Thickness 1.0 cm 0.6 - 1.0 / 0.6 - 0.9 cm LVPW Systolic Thickness 1.2 cm RV Chamber Size 2.8 cm LVOT Diameter 1.8 cm LV Ejection Fraction 2D Teich 52.0 % LV Ejection Fraction MOD 2C 50.3 % LV Ejection Fraction 2C AL 48.8 % LA Diameter 2.8 cm LA Width 3.4 cm LA Height 4.7 cm RA Width 2.8 cm RA Height 4.3 cm Aorta at Sinotubular Diameter 2.4 cm M-MODE LV Diastolic Diameter MM 5.2 cm 4.2 - 5.9 / 3.9 - 5.3 cm LV Systolic Diameter MM 3.7 cm LV Ejection Fraction MM Teich 54.9 % IVS Diastolic Thickness MM 0.8 cm 0.6 - 1.0 / 0.6 - 0.9 cm IVS Systolic Thickness MM 1.2 cm LVPW Diastolic Thickness MM 1.0 cm 0.6 - 1.0 / 0.6 - 0.9 cm LVPW Systolic Thickness MM 1.7 cm RV Diastolic Diameter MM 0.5 cm Aortic Annulus Diameter 2.9 cm LA Ao Ratio MM 1.3 MV E Point Septal Separation 1.4 cm DOPPLER AV Peak Velocity 151.0 cm/s LVOT Peak Velocity 100.0 cm/s AV Area Cont Eq vti 1.7 cm squared AV Area Cont Eq pk 1.7 cm squared MV Area PHT 4.5 cm squared Mitral E to A Ratio 0.8 MV E' Velocity 39.0 cm/s Mitral E to MV E' Ratio 4.9 Mitral E to LV E' Lateral Ratio 4.3 Mitral E to LV E' Septal Ratio 5.6 TV Peak E Velocity 46.0 cm/s Right Atrial Pressure 15.0 mmHg RV Acceleration Time 0.1 s RV Ejection Time 0.3 s RV AcT/ET 0.3 FINDINGS Left Ventricle Normal left ventricular cavity size. Normal left ventricular systolic function. No regional wall motion abnormalities. Left ventricular ejection fraction is estimated at 60 %. Grade I/IV diastolic dysfunction (abnormal relaxation filling pattern), normal to mildly elevated filling pressures. Right Ventricle The right ventricle is normal in size and function. RVSP could not be calculated due to incomplete tricuspid regurgitation velocity profile. Right Atrium The right atrium is normal in size. Left Atrium The left atrium is normal in size. Mitral Valve Mitral valve sclerosis. No mitral valve stenosis. Mild mitral valve regurgitation. Aortic Valve Moderate aortic valve calcification. No aortic valve stenosis. Trace aortic valve regurgitation. Tricuspid Valve Trace tricuspid valve regurgitation. Pulmonic Valve Structurally normal pulmonic valve without significant stenosis. There is no pulmonic regurgitation. Pericardium Normal pericardium without effusion. Aorta Normal ascending aorta dimension. CONCLUSIONS 1-Normal left ventricular cavity size. Normal left ventricular systolic function. No regional wall motion abnormalities. Left ventricular ejection fraction is estimated at 60 %. Grade I/IV diastolic dysfunction (abnormal relaxation filling pattern), normal to mildly elevated filling pressures. 2-There is no pericardial effusion. 3-No significant valve abnormalities. 4-The right ventricle is normal in size and function. RVSP could not be calculated due to incomplete tricuspid regurgitation velocity profile. 5-There is no pericardial effusion. 6-There are no prior echocardiogram studies to compare. Cyn Garsia MD (Electronically Signed) Final Date: 22 October 2021 19:48 S
[2021-10-22] MEDS: dexamethasone 4 mg/mL INJ 6 MG IVP (16:21)
[2021-10-22] MEDS: ascorbic acid 500 mg Tablet PO (17:47)
[2021-10-22] MEDS: remdesivir 100 MG in sodium chloride 0.9% (100 ml) 80 ML IV (17:48)
--- NOTE | 2021-10-22 19:13 | PC.NURSE ---
Shift Note Frequent safety and comfort rounds continue. Orders and/or nursing care completed as indicated. Patient monitored for response to intervention and treatment(s). Education provided includes antiviral treatment for Covid-19. Patient and/or data entry representative verbalized understanding. Will continue to monitor.
[2021-10-23] VITALS (13 sets, daily range): BP systolic 105–138; BP diastolic 65–68; PULSE 61–89; RESP 15–20; TEMP 36.6–37; O2SAT 94–98; BMI 25.4
[2021-10-23] MEDS: ipratropium-albuterol 3 mL Neb INHALATION ×3 (02:27→14:45)
[2021-10-23 05:00] LABS: Basophils % 0.2 %; Hematocrit 33.6 % (42.0-52.0); Lymphocytes # 0.9 10^3/uL (0.8-4.8); Lymphocytes % 4.7 %; Mean Corpuscular HGB Conc 32.7 g/dL (30.0-36.0); Mean Corpuscular Hemoglobin 28.9 pg (28.0-34.0); Mean Corpuscular Volume 88.2 fl (80-94); Monocytes # 1.2 10^3/uL (0.2-0.9); Monocytes % 6.3 %; Neutrophils # 16.05 10^3/uL (1.8-7.7); Neutrophils % 86.9 %; Nucleated Red Blood Cells % 0 %; Platelet Count 229 10^3/cmm (130-400); Red Blood Count 3.81 10^6/uL (4.1-5.3); Red Cell Distribution Width 13.3 % (12.1-15.1); White Blood Count 18.5 10^3/uL (4.0-10.0)
[2021-10-23 05:14] LABS: Magnesium 2.5 mg/dL (1.7-2.3)
[2021-10-23 05:18] LABS: Alanine Aminotransferase 63 U/L (0-41); Albumin Level 2.6 g/dL (3.5-5.2); Alkaline Phosphatase 143 IU/L (40-130); Anion Gap 17.9 (5-19); Aspartate Amino Transferase 16 U/L (0-40); Blood Urea Nitrogen 14 mg/dL (6-20); Carbon Dioxide 20 mmol/L (22-29); Chloride 102 mmol/L (98-107); Globulin 3.5 g/dL (1.3-4.6); Glucose 147 mg/dL (65-115); Osmolality Calculated 285 mOsm/kg (285-295); Potassium 3.9 mmol/L (3.5-5.1); Sodium 136 mmol/L (136-145); Total Bilirubin 0.3 mg/dL (0.15-1.2); Total Protein 6.1 g/dL (6.6-8.7)
[2021-10-23] MEDS: levoFLOXacin 500 mg Tablet PO (05:55)
[2021-10-23] MEDS: famotidine 20 mg/2 mL INJ IVP (05:55)
[2021-10-23] MEDS: sucralfate 1 gm Tablet PO ×2 (05:56→11:30)
--- NOTE | 2021-10-23 08:00 | PC.NURSE ---
Pt presents lying in bed resting and watching tv. Pt A&O x4, Resp even and non-labored no distress or sob noted. Pt had no c/o pain or discomfort at the present time. No needs voiced. Call light in reach.
[2021-10-23] MEDS: atorvastatin 40 mg Tablet 20 MG PO (08:48)
[2021-10-23] MEDS: ferrous gluconate 324 mg Tablet PO (08:48)
[2021-10-23] MEDS: zinc gluconate 50 mg Tablet PO (08:49)
[2021-10-23] MEDS: ascorbic acid 500 mg Tablet PO (08:49)
[2021-10-23] MEDS: pantoprazole DR 40 mg Tablet PO (08:49)
[2021-10-23] MEDS: metoprolol tartrate 25 mg Tablet PO (08:49)
[2021-10-23] MEDS: benzonatate 100 mg Capsule PO ×2 (08:49→16:15)
[2021-10-23] MEDS: tamsulosin 0.4 mg Capsule PO (08:49)
[2021-10-23] MEDS: enoxaparin 80 mg/0.8 mL Syringe 70 MG SUBCUT (08:49)
[2021-10-23] MEDS: budesonide 0.5 mg/2 mL Neb INHALATION (09:12)
[2021-10-23] MEDS: dexamethasone 4 mg/mL INJ 6 MG IVP (16:13)
--- NOTE | 2021-10-23 17:06 | P.DS_ITS ---
Discharge Providers Date of Admission: 10/21/21 14:25 Date of Discharge: October 23, 2021 Attending Provider at Admission: aSnjay Adame MD Attending Provider at Discharge: Paul Greer Primary Care Provider: TJ Espinoza Diagnoses at Discharge Discharge Diagnosis (1) COVID-19: Status: Acute (2) Pulmonary embolism: Status: Acute (3) COPD (chronic obstructive pulmonary disease) with emphysema: Status: Chronic (4) Hyperlipidemia, mixed: Status: Chronic Reason for Visit Reason for Visit: Exreme SOB pt states Left lung hurts Hospital Course Hospital Course Pleasant 55-year gentleman with history of COPD, long history of smoking having quit 2 years ago, reports tested positive on home test on 10/07 for COVID-19, and started having symptoms a couple of days before that, was assessed in ER and started on dexamethasone and oxygen on 10/11, but returned with worsening shortness of breath, with finding of bilateral PE also on evaluation for which in addition to treatment with remdesivir and Decadron was also treated with anticoagulation with heparin drip, then transition to Lovenox. Empirically treated with Levaquin, but no signs of ongoing bacterial infection. Noted rising leukocytosis, but possibly secondary to steroid. Otherwise clinically is doing well. Reports he is feeling better than he has in a long time. Has been getting up in his room, although limited ambulation due to length of the oxygen cord. He is down to 2 L by nasal cannula. Discussed with him consideration of completion of course of remdesivir tonight, versus discharge currently given he is feeling well and likely limited additional utility. Since he has continued to improve, he is feeling ready for discharge. Discussed with him continued anticoagulation, risk of bleeding. He verbalized understanding to seek medical attention immediately in case of any bleeding. He is transitioning to Eliquis on discharge. Echocardiogram performed in the hospital showed normal ejection fraction, grade 1 diastolic dysfunction. No significant valve abnormalities. Right ventricle normal in size and function. Physical Exam Const: COMMON NORMALS: no acute distress and patient oriented x3 HENMT: COMMON NORMALS: oropharynx normal Neck/C-Spine: COMMON NORMALS: no JVD Resp: COMMON NORMALS: normal respiratory effort and clear to auscultation bilaterally EFFORT & INSPECTION: Yes able to speak in complete sentences AUSCULTATION: clear to auscultation bilaterally and diminished lung sounds Cardio: COMMON NORMALS: no JVD, regular rhythm, S1 normal heart sound present, S2 normal heart sound present and No murmurs present (Cardio) RHYTHM: regular rhythm HEART SOUNDS: S1 normal heart sound present and S2 normal heart sound present GI: COMMON NORMALS: Normal to inspection, nondistended, normoactive bowel sounds present, Soft to palpation and non-tender PALPATION: Yes Soft to palpation Extremity: COMMON NORMALS: no joint enlargement and no pedal edema Neuro: COMMON NORMALS: patient oriented x3 and moves all extremities Skin: COMMON NORMALS: no rashes or lesions noted GENERAL SKIN EXAM: no rashes or lesions noted Discharge Data Data Completed and Pending: Completed Studies During Hospitalization Category Date Time Status CT angio chest PE protcl [id number] Stat Cat Scan 10/21/21 11:53 Completed XR chest 1V bushra ble [id number] Q48H Exams 10/22/21 06:00 Completed XR chest 1V bushra ble [id number] Urgent Exams 10/21/21 08:17 [place] [id number] Urgent Ultrasound 10/21/21 15:41 Completed CV. echo complete * [id number] Routine Ultrasound 10/22/21 14:00 Completed Pending at discharge Category Date Time Status XR chest 1V bushra ble [id number] Q48H Exams 10/24/21 06:00 Ordered XR chest 1V bushra ble [id number] Q48H Exams 10/26/21 06:00 Ordered Blood Culture Sta t Lab 10/21/21 15:00 Results C Reactive Protei n Q48H Lab 10/24/21 04:00 Ordered D Dimer Q48H Lab 10/24/21 04:00 Ordered Magnesium AM LABS Lab 10/24/21 04:00 Ordered Magnesium AM LABS Lab 10/25/21 04:00 Ordered Phosphorus AM LAB S Lab 10/24/21 04:00 Ordered Phosphorus AM LAB S Lab 10/25/21 04:00 Ordered Sputum Culture an d Gram Stain Stat Lab 10/21/21 15:41 Uncollected Labs from last 24 hours 10/23/21 10/23/21 10/23/21 04:10 04:10 04:10 WBC 18.5 H RBC 3.81 L Hgb 11.0 L Hct 33.6 L MCV 88.2 MCH 28.9 MCHC 32.7 RDW 13.3 Plt Count 229 MPV 12.0 H Neut % (Auto) 86.9 Lymph % (Auto) 4.7 [place] % (Auto) 6.3 Eos % (Auto) 0.0 Baso % (Auto) 0.2 Neut # (Auto) 16.05 H Lymph # (Auto) 0.9 [place] # (Auto) 1.2 H Eos # (Auto) 0.0 Baso # (Auto) 0.0 Nucleated RBC % (a uto) 0 Nucleated RBCs # 0.0 Sodium 136 Potassium 3.9 Chloride 102 Carbon Dioxide 20 L Anion Gap 17.9 BUN 14 Creatinine 0.8 GFR Calculation 100.0 Glucose 147 H Calculated Osmolal ity 285 Calcium 8.0 L Phosphorus 3.0 Magnesium 2.5 H Total Bilirubin 0.3 AST 16 ALT 63 H Alkaline Phosphata se 143 H Total Protein 6.1 L Albumin 2.6 L Globulin 3.5 Vitals: Last Vital Signs Temp 98.0 F 10/23/21 12:00 Pulse 74 10/23/21 14:56 Resp 16 10/23/21 14:56 BP 105/67 10/23/21 12:00 Pulse Ox 95 10/23/21 14:56 Discharge Plan Discharge Patient Disposition: Home Condition: Stable Prescriptions: New Agilvax DVT-PE Treat 30D Start 5 mg (74 tabs) tablets,dose pack See Rx Instructions .ROUTE .COMPLEX Qty: 74 RF: 0 prednisone 10 mg tablet See Rx Instructions .ROUTE .COMPLEX Qty: 10 RF: 0 Continued Breztri Aerosphere 160-9-4.8 mcg/actuation HFA aerosol inhaler 2 inh inhalation BID Qty: 10.7 RF: 2 lovastatin 20 mg tablet 20 mg PO DAILY Qty: 90 RF: 1 sucralfate [Carafate] 1 gram tablet 1 g PO .4 times day Qty: 360 RF: 1 tamsulosin 0.4 mg capsule 0.4 mg PO DAILY Qty: 90 RF: 1 omeprazole 40 mg capsule,delayed release(DR/EC) See Rx Instructions .ROUTE .COMPLEX Qty: 30 RF: 2 albuterol sulfate 2.5 mg /3 mL (0.083 %) solution for nebulization 2.5 mg inhalation Q4H PRN (Reason: shortness of breath or wheezing) Qty: 75 RF: 2 albuterol sulfate 90 mcg/actuation HFA aerosol inhaler 2 inh INHALATION Q4H PRN (Reason: shortness of breath or wheezing) Qty: 18 RF: 0 Discharge Orders: Discharge Order (Routine); Ordered 10/23/21 Ordered By: Paul Greer Referrals: Sarah Armendariz FNP-C [Primary Care Provider] - 4-7 days Discharge Diet: Cardiac Discharge Activity: Increase activity as tolerated and Oxygen as instructed Patient Instructions: Apixaban (By mouth) (Eliquis), Pulmonary Embolism (GEN), Droplet Precautions (GEN), COVID-19 (Coronavirus Disease 2019) (GEN), Opioid Safety Activity Restrictions/Additional Instructions: Continue oxygen at home. Target oxygen saturation of 92%. If your oxygen saturation is high, above 95%, you may attempt to decrease oxygen flow rate. This weight you may gradually come off oxygen. Please note that with exertion your oxygen demand increases, and oxygen level may decrease, so you may need oxygen for some time with exertion alone before you can discontinue oxygen entirely. Maintain isolation for 2 more days, subsequently isolation can be discontinued. Please consider getting vaccinated for COVID-19 to help prevent repeat severe infection. Please follow-up with your primary doctor to reassess recovery from COVID-19. Discussed with your primary doctor also regarding the pulmonary emboli (blood clots in your lungs), as well as that you have been started on blood thinner medication. This would be anticipated to continue for 6 months, but please revisit with your primary doctor and they may determine a different duration depending on your clinical recovery. Your echocardiogram shows that you are heart ejection fraction is normal at 60%. Your heart is mildly stiff with grade 1 diastolic dysfunction. Discharge Attestations Time Spent in Discharge Care*: greater than 30 min Quality Metrics Clinical Quality Measures During this hospital stay, did patient experience: None Coding Level of Care Code Acute g FW [place] note Diagnoses COVID-19 U07.1 Pulmonary embolism I26.99 COPD (chronic obstructive pulmonary disease) with emphysema J43.9 Hyperlipidemia, mixed E78.2
--- NOTE | 2021-10-23 18:45 | PC.NURSE ---
Pt discharged home. IV removed no redness or swelling noted. Pt discharge instructions given along with prescriptions and follow up appointments. Pt had no c/o pain or discomfort at the time of discharge.
== END 2021-10-23 18:33 | disposition home or self-care (01) | DRG 177 ==
LOC: ER 17:52 → CSU 17:55
PROVIDERS: Physician Assistant; Admitting Provider Student in an Organized Health Care Education/Training Program; Emergency Provider Family Medicine; PCP Nurse Practitioner; Visit Provider Internal Medicine
DX: U07.1 COVID-19 (principal); J12.82 Pneumonia due to coronavirus disease 2019; I26.99 Other pulmonary embolism without acute cor pulmonale; N13.8 Other obstructive and reflux uropathy; J43.9 Emphysema, unspecified; N40.1 Benign prostatic hyperplasia with lower urinary tract symptoms; K21.9 Gastro-esophageal reflux disease without esophagitis; E78.2 Mixed hyperlipidemia; Z87.891 Personal history of nicotine dependence; Z79.51 Long term (current) use of inhaled steroids
CPT/HCPCS: 36415; 71045; 71275; 80053; 80061; 81001; 82550; 83540; 83550; 83605; 83615; 83735; 83880; 84100; 84145; 84443; 84484; 85025; 85378; 85651; 85730; 86140; 86403; 87040; 87449; 87641; 93005; 93306; 93970; 94640; 96365; 96372; 96375; 99285; J1100; J1644; J1650; J2270; J3490; J7626; Q9967

== ENCOUNTER → 2021-10-26 09:15 | Outpatient (BNVA) | payer MEDICARE, MEDICAID, SELFPAY | PROVIDERS: PCP Nurse Practitioner; Visit Provider Nurse Practitioner | DX: J44.9 Chronic obstructive pulmonary disease, unspecified (principal) | CPT/HCPCS: 80053; 85025 ==

== ENCOUNTER 2021-11-07 08:17 | Inpatient (IN) | payer MEDICARE, MEDICAID, SELFPAY ==
[2021-11-07] VITALS (11 sets, daily range): BP systolic 119–183; BP diastolic 81–112; PULSE 77–144; RESP 14–35; TEMP 36.6–36.9; O2SAT 88–98; BMI 24.8
[2021-11-07] MEDS: ondansetron 2 mg/ML SDV 2 mL 4 MG IVP (08:20)
--- NOTE | 2021-11-07 08:20 | CT_ITS ---
WS: [id number] CT CHEST ANGIOGRAPHY WITH REFORMATS HISTORY: hx PE/hypoxia TECHNIQUE: Contiguous axial images are obtained through the chest during arterial injection of intrav enous contrast. Images are reconstructed to evaluate the pulmonary arteries. MIP imaging also reviewe d. All CT scans at [facility] use at least one of these dose optimization techniques: automat ed exposure control; mA and/or kV adjustment per patient size (includes targeted exams where dose is matched to clinical indication); or iterative reconstruction. CONTRAST: Omnipaque 300; 63 mL IV. DLP: 562.56 mGy.cm COMPARISON: 10/21/2021 Good opacification of the pulmonary arteries. No central pulmonary emboli are identified. There are o pacifications in the lower lung kate obscuring the pulmonary arteries. These would be very peripher al lobe pulmonary emboli. Normal size pulmonary artery. Atherosclerotic changes are mild within the a georgie. Mild enlargement of the LEFT heart. Right-sided chest tube is now present with tip directed superiorly. There is a small residual RIGHT p neumothorax of 10-15%. Areas of mild peripheral atelectasis. There is also a very small layering LEFT pleural effusion. No adenopathy. Small hiatal hernia. No acute abnormality within the upper abdomen. There is extensive subcutaneous emphysema along the RIGHT lateral chest wall. CT/CT angio chest PE protcl [id number] IMPRESSION: 1. No pulmonary emboli identified. 2. Right-sided chest tube in good position. 3. Residual RIGHT pneumothorax of 10-15%. Pneumothorax appears slightly greate r in size as compared to the chest radiograph that was taken immediately after chest tube placement. Consider short-term chest radiograph follow-up to ensure there is no enlarging pneumothorax. 4. Small LEFT pleural effusion with bibasilar areas of atelectasis.
--- NOTE | 2021-11-07 08:20 | XR_ITS ---
WS: [id number] PORTABLE CHEST HISTORY: dyspnea/cough COMPARISON: 10/22/2021 Large right-sided pneumothorax with very minimal tension at this time. As compared to the prior radio graph there is very slight bowing of the trachea to the LEFT. Collapsed RIGHT lung is positioned cent rally. Chronic emphysema. Subsegmental atelectasis near the lingula and at the LEFT lung base. No pleural effusion. Cardiac size: Top normal size. Mediastinum/Aorta: Very slight bowing of the trachea to the LEFT. No osseous abnormality seen. XR/XR chest 1V portable [id number] IMPRESSION: 1. Large right-sided pneumothorax with minimal bowing of the trachea to the LE FT. 2. Subsegmental atelectasis at the lingula and LEFT lung base. 3. Chronic emphysema. Notified Floyd Camacho DO at 11/07/2021 8:45 AM.
--- NOTE | 2021-11-07 08:20 | ECG_ITS ---
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 Measurements Intervals [place] Rate: 132 P: 105 OR: 132 QRS: 58 QRSD: 85 T: 54 QT: 288 QTc: 428 Interpretive Statements SINUS TACHYCARDIA NONSPECIFIC ST & T-WAVE ABNORMALITY Compared to ECG 10/21/2021 12:16:55 T-wave abnormality now present Sinus rhythm no longer present Electronically Signed On 11-07-2021 13:01:53 FAC ENGINEER by Carly Donohue M.D. [id number]
[2021-11-07 08:23] LABS: ABG PH Result 7.28 (7.35-7.45); Arterial Blood Gas Hematocrit 40.2 % (42-52); Base Excess ABG -3.6 mmol/L (-2.0-2.0); Blood Gas Allen Test Pos; Blood Gas Sample Type Arterial; Carboxyhemoglobin 0.9 %THgb (0.4-20.1); HCO3 ABG 23.6 mmol/L (22-26); Ionized Calcium Level - ABG 1.3 mmol/L (1.1-1.4); Methemoglobin 0.7 % (0.4-1.5); Oxygen Saturation ABG 82.3; PO2 ABG 51.4 mmHg (80.0-100.0); Potassium Level - ABG 4.7 mmol/L (3.5-5.0); Total Hemoglobin 13.1 g/dL (14-18)
[2021-11-07 08:24] LABS: Blood Gas Sample Site Radial, left; Oxygen Device NC
[2021-11-07] MEDS: ipratropium-albuterol 3 mL Neb 6 ML INHALATION (08:37)
[2021-11-07 08:38] LABS: Basophils # 0.1 10^3/uL (0.0-0.1); Basophils % 0.6 %; Eosinophils # 0.8 10^3/uL (0.0-0.8); Eosinophils % 5.5 %; Hematocrit 40.1 % (42.0-52.0); Hemoglobin 12.6 g/dL (11.7-16.6); Lymphocytes # 3.2 10^3/uL (0.8-4.8); Lymphocytes % 20.6 %; Mean Corpuscular HGB Conc 31.4 g/dL (30.0-36.0); Mean Corpuscular Hemoglobin 29.1 pg (28.0-34.0); Mean Corpuscular Volume 92.6 fl (80-94); Monocytes # 1.4 10^3/uL (0.2-0.9); Neutrophils # 9.64 10^3/uL (1.8-7.7); Neutrophils % 62.8 %; Nucleated Red Blood Cells % 0 %; Platelet Count 455 10^3/cmm (130-400); Red Blood Count 4.33 10^6/uL (4.1-5.3); Red Cell Distribution Width 14.2 % (12.1-15.1); White Blood Count 15.3 10^3/uL (4.0-10.0)
--- NOTE | 2021-11-07 08:42 | ED_ITS ---
HPI - SOB/Dyspnea General: Chief Complaint: Shortness of Breath/Dyspnea Stated Complaint: SOB, POSSIBLE PE Time Seen by Provider: 11/07/21 08:19 History of Present Illness: HPI Narrative: 55-year-old male presents to the emergency room via EMS. He is in acute respiratory distress EMS was called for respiratory distress on arrival they found him satting in the upper 70s low 80s. Put him on a nasal cannula at 4 L on arrival here he is in the mid 80s. He is normally on oxygen at home. Last month he had tested positive for Covid. He currently is on Eliquis he states he has been taking regularly denies any chest pain he has had a slight increase in sputum production. No fever. He was diagnosed positive COVID on 10/11/2021 he was seen in the ER MD elicited complaint: shortness of breath and cough Pertinent past history: COPD Onset (ago): hour(s) Context: recent illness (COVID-19 last month) Associated symptoms: Deny abdominal pain, chest pain, fever(s), nausea, orthopnea or vomiting Review of Systems Const: Denies: fever(s), chills, body aches, change in appetite, fatigue or malaise ENMT: Denies: throat pain, ear or mastoid pain, nasal discharge or nasal congestion Card: Denies: chest pain, edema, dyspnea on exertion or orthopnea Resp: Denies: dyspnea, productive cough or non-productive cough GI: Denies: abdominal pain, nausea, vomiting, hematemesis, coffee ground emesis, diarrhea, constipation, bloating, hematochezia or melena : Denies: flank pain, dysuria, urinary frequency or urinary urgency Skin/Breast: Denies: rash or pruritus PFSH ED PFSH: Medical History Bloating BPH loc w urin obs/LUTS Colon polyp COPD (chronic obstructive pulmonary disease) with emphysema COVID-19 Gastritis and duodenitis GERD (gastroesophageal reflux disease) GERD with esophagitis Hyperlipidemia, mixed Screening PSA (prostate specific antigen) Surgical History H/O colonoscopy with polypectomy Family History Family/Other No problems noted. Mother , AT AGE 83 No problems noted. Father , AT AGE 67 No problems noted. Social History Second hand smoke exposure: No Smoking risk assessment/counseling performed?: No Alcohol intake: never Desire information about alcohol rehabilitation?: No Counseling given: No Desire information about substance/drug rehabilitation?: No Counseling given: No Adopted: No Caregiver/support person: No Lives independently: Yes Household members: none Housing: House Marital status: Number of children: 2 service: No Current occupational status: disabled Current occupational exposures/hazards: No Pets and animals: Yes Pets & animals: cat(s) History of recent travel: No Current gender identity: Male Physical Exam Const: GENERAL APPEARANCE: cooperative ORIENTATION/CONSCIOUSNESS: Yes awake HENMT: COMMON NORMALS: normocephalic, atraumatic and hearing grossly normal bilaterally HEAD & SCALP: normocephalic and atraumatic Resp: EFFORT & INSPECTION: No able to speak in complete sentences, Yes abnormal respiratory pattern, Yes tachypneic, Yes labored, Yes grunting, Yes uses accessory muscles and Yes audible wheezes AUSCULTATION: diminished lung sounds on the right GI: COMMON NORMALS: Soft to palpation and No hepatosplenomegaly present AUSCULTATION: Yes normoactive bowel sounds PALPATION: Yes Soft to palpation, No Tenderness to palpation present (GI), No Guarding due to palpation present (GI) and Yes No hepatosplenomegaly present Extremity: COMMON NORMALS: normal to inspection, capillary refill normal, no clubbing, cyanosis or edema, no calf tenderness and no pedal edema Skin: COMMON NORMALS: no rashes or lesions noted GENERAL SKIN EXAM: no rashes or lesions noted Procedures Chest Tube Chest Tube 1: Chest Tube Location: right and mid axillary line Chest Tube Prep: Yes betadine prep and sterile drapes applied Local Anesthetic: lidocaine 1% Amount of anesthesia used (mL): 15 Incision Made With: #11 blade Post Procedure: sutured to skin and sterile dressing applied Tube Drainage: none Post Procedure CXR?: Yes Patient Tolerated Procedure: Yes Progress: Near full reexpansion of the lung. A second follow-up chest x- ray shows complete resolution of pneumothorax Course Vital Signs: Vital signs: Vital Signs Temperature 98.4 F 11/10/21 04:00 Pulse Rate 76 11/10/21 04:00 Respiratory Rate 20 H 11/10/21 04:00 Blood Pressure 116/66 11/10/21 04:00 Pulse Oximetry 96 11/10/21 04:00 MDM - SOB/Dyspnea MDM Narrative: Medical decision making narrative: Patient arrives in severe respiratory distress. Initially was concerned about COVID versus severe COPD exacerbation.Reviewing his chart he had been positive for COVID in early October. Which raise a concern of PE. Chest x-ray however showed pneumothorax. By this time patient been started on BiPAP. BiPAP was ceased due to concerns using positive pressure to assist in respirations worsening the pneumothorax. A right mid axillary thoracotomy tube was placed with good resolution of his tension pneumothorax. Additionally had significant improvement of his overall condition. We are able to titrate him back to a nasal cannula and his respiratory distress ceased. Discussed with Dr. Bowling and with Dr. Joyce will admit. Lab Data: Labs: Lab Results 11/07/21 11/07/21 11/07/21 08:13 08:27 08:27 WBC 15.3 10^3/uL H 10 ^3/uL (4.0-10.0) RBC 4.33 10^6/uL 10^6 /uL (4.1-5.3) Hgb 12.6 g/dL g/dL (11.7-16.6) Hct 40.1 % L % (42.0-52.0) MCV 92.6 fl fl (80-94) MCH 29.1 pg pg (28.0-34.0) MCHC 31.4 g/dL g/dL (30.0-36.0) RDW 14.2 % % (12.1-15.1) Plt Count 455 10^3/cmm H 10 ^3/cmm (130-400) MPV 10.0 fL fL (7.4-10.4) Neut % (Auto) 62.8 % % Lymph % (Auto) 20.6 % % [place] % (Auto) 9.0 % % Eos % (Auto) 5.5 % % Baso % (Auto) 0.6 % % Neut # (Auto) 9.64 10^3/uL H 10 ^3/uL (1.8-7.7) Lymph # (Auto) 3.2 10^3/uL 10^3/ uL (0.8-4.8) [place] # (Auto) 1.4 10^3/uL H 10^ 3/uL (0.2-0.9) Eos # (Auto) 0.8 10^3/uL 10^3/ uL (0.0-0.8) Baso # (Auto) 0.1 10^3/uL 10^3/ uL (0.0-0.1) Nucleated RBC % (a uto) 0 % % Nucleated RBCs # 0.0 /100WBC /100W BC Specimen Type Arterial Sample Site Radial, left ABG pH 7.28 L (7.35-7.45) ABG pCO2 50.0 mmHg H mmHg (35-45) ABG pO2 51.4 mmHg L mmHg (80.0-100.0) ABG HCO3 23.6 mmol/L mmol/ L (22-26) ABG O2 Saturation 82.3 ABG Base Excess -3.6 mmol/L L mmo l/L (-2.0-2.0) Livan Test Pos A-a O2 Gradient 5.0 mmHg mmHg (5-10) Hematocrit 40.2 % L % (42-52) Hgb O2 Saturation 81.0 % L % (95-100) Carboxyhemoglobin 0.9 %THgb %THgb (0.4-20.1) Methemoglobin 0.7 % % (0.4-1.5) Total Hemoglobin 13.1 g/dL L g/dL (14-18) Sodium 142.0 mmol/L mmol /L 135 mmol/L L mmol /L (131-143) (136-145) Potassium 4.7 mmol/L mmol/L 4.3 mmol/L mmol/L (3.5-5.0) (3.5-5.1) Glucose 176.0 mg/dL H mg/ dL 174 mg/dL H mg/dL (70-115) (65-115) Ionized Calcium 1.3 mmol/L mmol/L (1.1-1.4) O2 Delivery Device Nc O2 Liters/Min 4.0 % % Supervisor Filter Assembly ID Duner Chloride 102 mmol/L mmol/L (98-107) Carbon Dioxide 18 mmol/L L mmol/ L (22-29) Anion Gap 19.3 H (5-19) BUN 9 mg/dL mg/dL (6-20) Creatinine 0.7 mg/dL mg/dL (0.7-1.2) GFR Calculation 116.7 mL/min mL/m in (90-130) Calculated Osmolal ity 283 mOsm/kg L mOs m/kg (285-295) Lactic Acid Lactic Acid (Sepsi s) Calcium 8.5 mg/dL mg/dL (8.5-10.5) Magnesium 1.9 mg/dL mg/dL (1.7-2.3) Total Bilirubin 0.3 mg/dL mg/dL (0.15-1.2) AST 18 U/L U/L (0-40) ALT 36 U/L U/L (0-41) Alkaline Phosphata se 122 IU/L IU/L (40-130) Creatine Kinase 39 U/L U/L (39-308) Troponin T Baselin e Troponin T 120 Min lisa Delta Troponin T Total Protein 7.1 g/dL g/dL (6.6-8.7) Albumin 3.6 g/dL g/dL (3.5-5.2) Globulin 3.5 g/dL g/dL (1.3-4.6) 11/07/21 11/07/21 11/07/21 08:27 08:27 10:30 WBC RBC Hgb Hct MCV MCH MCHC RDW Plt Count MPV Neut % (Auto) Lymph % (Auto) [place] % (Auto) Eos % (Auto) Baso % (Auto) Neut # (Auto) Lymph # (Auto) [place] # (Auto) Eos # (Auto) Baso # (Auto) Nucleated RBC % (a uto) Nucleated RBCs # Specimen Type Sample Site ABG pH ABG pCO2 ABG pO2 ABG HCO3 ABG O2 Saturation ABG Base Excess Livan Test A-a O2 Gradient Hematocrit Hgb O2 Saturation Carboxyhemoglobin Methemoglobin Total Hemoglobin Sodium Potassium Glucose Ionized Calcium O2 Delivery Device O2 Liters/Min Supervisor Filter Assembly ID Chloride Carbon Dioxide Anion Gap BUN Creatinine GFR Calculation Calculated Osmolal ity Lactic Acid 2.1 mmol/L mmol/L (0.5-2.2) Lactic Acid (Sepsi s) Calcium Magnesium Total Bilirubin AST ALT Alkaline Phosphata se Creatine Kinase Troponin T Baselin e 9 ng/L ng/L (0-15) Troponin T 120 Min lisa 22.01 ng/L H ng/L (0-15) Delta Troponin T 13.01 ABS# H* ABS # (0-10) Total Protein Albumin Globulin 11/07/21 10:30 WBC RBC Hgb Hct MCV MCH MCHC RDW Plt Count MPV Neut % (Auto) Lymph % (Auto) [place] % (Auto) Eos % (Auto) Baso % (Auto) Neut # (Auto) Lymph # (Auto) [place] # (Auto) Eos # (Auto) Baso # (Auto) Nucleated RBC % (a uto) Nucleated RBCs # Specimen Type Sample Site ABG pH ABG pCO2 ABG pO2 ABG HCO3 ABG O2 Saturation ABG Base Excess Livan Test A-a O2 Gradient Hematocrit Hgb O2 Saturation Carboxyhemoglobin Methemoglobin Total Hemoglobin Sodium Potassium Glucose Ionized Calcium O2 Delivery Device O2 Liters/Min Supervisor Filter Assembly ID Chloride Carbon Dioxide Anion Gap BUN Creatinine GFR Calculation Calculated Osmolal ity Lactic Acid Lactic Acid (Sepsi s) 1.8 mmol/L mmol/L (0.5-2.2) Calcium Magnesium Total Bilirubin AST ALT Alkaline Phosphata se Creatine Kinase Troponin T Baselin e Troponin T 120 Min lisa Delta Troponin T Total Protein Albumin Globulin Critical Care Time Critical Care Time: Critical Care Time: Yes Total Critical Care Time: 45 Attestation: The high probability of a clinically significant, sudden or life threatening deterioration of the patient's respiratory system(s) required my full and direct attention, intervention and personal management. The critical care time is as shown. This time is in addition to time spent performing any reported procedures but includes the following: [x] Data and vital sign review and interpretation [x] Patient assessment, examination and intervention [x] Documentation [x] Medication orders and management Discharge Plan Discharge Patient Disposition: Admitted As Inpatient Admit Provider: Akash Zapata Clinical Impression: Pneumothorax, spontaneous, tension, COPD (chronic obstructive pulmonary disease), Post covid-19 condition, unspecified Condition: Stable Coding Level of Care Code ED Vmware Systems Administrator for Renny Dao
[2021-11-07] MEDS: fentaNYL 50 mcg/mL INJ 2mL 100 MCG IVP (08:55)
[2021-11-07] MEDS: midazolam 1 mg/mL INJ 2 mL 2 MG IVP (08:55)
[2021-11-07 08:59] LABS: Alanine Aminotransferase 36 U/L (0-41); Albumin Level 3.6 g/dL (3.5-5.2); Alkaline Phosphatase 122 IU/L (40-130); Anion Gap 19.3 (5-19); Aspartate Amino Transferase 18 U/L (0-40); Blood Urea Nitrogen 9 mg/dL (6-20); Calcium 8.5 mg/dL (8.5-10.5); Carbon Dioxide 18 mmol/L (22-29); Chloride 102 mmol/L (98-107); Creatine Phosphokinase 39 U/L (39-308); Globulin 3.5 g/dL (1.3-4.6); Glomerular Filtration Rate 116.7 mL/min (90-130); Glucose 174 mg/dL (65-115); Magnesium 1.9 mg/dL (1.7-2.3); Osmolality Calculated 283 mOsm/kg (285-295); Potassium 4.3 mmol/L (3.5-5.1); Sodium 135 mmol/L (136-145); Total Bilirubin 0.3 mg/dL (0.15-1.2); Total Protein 7.1 g/dL (6.6-8.7)
[2021-11-07 09:01] LABS: Lactic Sepsis W/Reflex 2.1 mmol/L (0.5-2.2); Troponin(5th) Baseline 9 ng/L (0-15)
--- NOTE | 2021-11-07 09:10 | XR_ITS ---
WS: [id number] PORTABLE CHEST HISTORY: post chest tube COMPARISON: Study earlier the same day. Interval insertion of a large bore RIGHT chest tube. Tip of the chest tube is directed superiorly. Ve ry tiny pneumothorax persists at the lung base. Lung volumes are decreased with atelectasis at the lung bases. No midline shift. No effusion. Cardiac size: Mildly enlarged cardiac silhouette. Mediastinum/Aorta: Normal mediastinum. No osseous abnormality seen. Moderate amount of subcutaneous emphysema over the RIGHT thorax. XR/XR chest 1V portable [id number] IMPRESSION: 1. Interval insertion of a RIGHT chest tube with significant resolution of the pneumothorax. 2. Very tiny persistent pneumothorax.
[2021-11-07 10:19] LABS: Reflex Lactate Order REFLEX LACTIC ORDERD
--- NOTE | 2021-11-07 10:20 | ECG_ITS ---
[facility] Test Date: 2021-11-07 Pat Name: Eugene Polk Department: Room: Gender: Male Open Shank Coverer: : 1965 Requested By: Floyd Mcdonnell Order Number: [id number] [place] MD: Carly Donohue M.D. Measurements Intervals [place] Rate: 93 P: 64 MT: 155 QRS: 33 QRSD: 80 T: 35 QT: 331 QTc: 413 Interpretive Statements SINUS RHYTHM Compared to ECG 11/07/2021 08:46:03 Sinus tachycardia no longer present T-wave abnormality no longer present Electronically Signed On 11-07-2021 13:14:19 FLOORING MECHANIC by Carly Donohue M.D. [id number]
[2021-11-07] MEDS: iohexol 350 mg/mL 100 mL Btl IV (10:22)
[2021-11-07 10:52] LABS: Lactic Acid level (Lactate) 1.8 mmol/L (0.5-2.2)
[2021-11-07 10:57] LABS: Troponin 5 2HR 22.01 ng/L (0-15)
[2021-11-07 11:06] LABS: Troponin 5 2HR Delta 13.01 ABS# (0-10)
--- NOTE | 2021-11-07 12:02 | XRR_ITS ---
PROCEDURE INFORMATION: Exam: XR Chest Exam date and time: 11/07/2021 12:02 PM Age: 55 years old Clinical indication: Condition or disease; Lung condition and disease; Pneumothorax TECHNIQUE: Imaging protocol: XR of the chest. Views: 1 view. COMPARISON: CR XR chest 1V portable [id number] 11/07/2021 9:09 AM FINDINGS: Tubes, catheters and devices: A chest tube is present in the right lung extending to the right lung apex. Lungs: Low lung volumes seen. There is bilateral lower lobe atelectasis. No consolidation. Pleural spaces: Unremarkable. No pleural effusion. There has been partial re-expansion of the right lung pneumothorax. Residual pneumothorax in the lower lateral right lung. Heart/Mediastinum: Unremarkable. No cardiomegaly. Bones/joints: Unremarkable. Soft tissues: Subcutaneous emphysema in the right lateral chest wall and in the left neck soft tissues. These findings are decreased since prior XR/XR chest 1V portable [id number] IMPRESSION: 1. No acute findings. 2. Low lung volumes with bilateral lower lobe atelectasis 3. A chest tube is seen in the right lung apex. 4. Small residual pneumothorax right lower lung. 5. Subcutaneous emphysema right lateral chest wall.
[2021-11-07] MEDS: acetaminophen 325 mg Tablet 650 MG PO ×2 (13:10→20:29)
--- NOTE | 2021-11-07 14:20 | ECG_ITS ---
[facility] Test Date: 2021-11-07 Pat Name: Eugene Polk Department: Room: Gender: Male Commissions Specialist: : 1965 Requested By: Floyd Mcdonnell Order Number: [id number] [place] MD: Carly Donohue M.D. Measurements Intervals Tina Rate: 83 P: 38 FL: 134 QRS: 19 QRSD: 90 T: 27 QT: 354 QTc: 417 Interpretive Statements SINUS RHYTHM Compared to ECG 11/07/2021 10:20:12 No significant changes Electronically Signed On 11-08-2021 5:34:38 PIECE MAKER by Carly Donohue M.D. [id number]
[2021-11-07 14:49] LABS: Troponin 5 6HR 20.86 ng/L (0-15); Troponin 5 6HR Delta 11.86 ng/L (0-12)
--- NOTE | 2021-11-07 15:33 | P.HP_ITS ---
Providers/Chief Complaint Admitting Physician: Akash Zapata MD Primary Care Provider: TJ Espinoza Chief Complaint: SOB, POSSIBLE PE History of Present Illness Eugene Polk is a 55 year old male who presented to the emergency department with complaints of acute chest discomfort as well as shortness of breath. He called his sister regarding these problems early in the morning, around 7:30 AM. He was brought to the emergency department and after initial evaluation found to have a large right-sided pneumothorax. A chest tube was placed and the patient had significant improvement in his symptoms. Mr. Polk is known to have COPD, for which she has been using oxygen since his Covid infection approximately 1 month ago. This was complicated by an admission October 21 with pulmonary emboli. He denies any recent fevers at home. He has had some mild cough. No vomiting. He reports he felt okay when he got up this morning, until he used his inhaler. Review of Systems General: Reports: 10 or more systems reviewed and unremarkable except in HPI and below Const: Denies: fever(s) Eyes: Denies: change in vision ENMT: Denies: throat pain Card: Reports: chest pain Resp: Reports: productive cough GI: Denies: abdominal pain : Denies: flank pain Musc: Denies: neck pain Skin/Breast: Denies: rash Neuro: Denies: headache(s) Psych: Denies: anxiety Endo: Denies: polyuria Smith/Lymph: Denies: easy bruising All/Imm: Denies: urticaria Medications/Allergies Home Medications Medication Instructions Recorded Confirmed Last Taken Type omeprazole 40 mg capsule,delayed See Rx Instructions .ROUTE 04/24/21 11/07/21 Rx release .COMPLEX #30 cap budesonide 160 mcg-glycopyr 9 2 inh INHALATION BID #10.7 g 08/07/21 11/07/21 11/07/21 Rx mcg-formot 4.8 mcg/actuation HFA inhaler lovastatin 20 mg tablet 20 mg PO DAILY #90 tab 08/07/21 11/07/21 11/06/21 Rx sucralfate 1 gram tablet 1 g PO .4 times day #360 tab 08/07/21 11/07/21 11/06/21 Rx tamsulosin 0.4 mg capsule 0.4 mg PO DAILY #90 cap 08/07/21 11/07/21 11/06/21 Rx albuterol sulfate 2 inh INHALATION Q4H PRN #18 gm 10/11/21 11/07/21 11/07/21 Rx albuterol sulfate 2.5 mg INHALATION Q4H PRN #75 ml 10/16/21 11/07/21 Unknown Rx apixaban 5 mg tablet 5 mg PO BID #60 tab 10/26/21 11/07/21 11/06/21 Rx ferrous gluconate 240 mg (27 mg 240 mg PO DAILY #30 tab 10/26/21 11/07/21 11/07/21 Rx iron) tablet metoprolol succinate 25 mg 25 mg PO DAILY #30 tab 10/26/21 11/07/21 11/06/21 Rx tablet,extended release 24 hr Allergies Allergy/AdvReac Type Severity Reaction Status Date / Time No Known Allergies Allergy Verified 11/07/21 08:18 PFSH Acute PFSH: Medical History Bloating BPH loc w urin obs/LUTS Colon polyp COPD (chronic obstructive pulmonary disease) with emphysema COVID-19 Gastritis and duodenitis GERD (gastroesophageal reflux disease) GERD with esophagitis Hyperlipidemia, mixed Screening PSA (prostate specific antigen) Surgical History H/O colonoscopy with polypectomy Family History Family/Other No problems noted. Mother , AT AGE 83 No problems noted. Father , AT AGE 67 No problems noted. Social History Second hand smoke exposure: No Smoking risk assessment/counseling performed?: No Alcohol intake: never Desire information about alcohol rehabilitation?: No Counseling given: No Desire information about substance/drug rehabilitation?: No Counseling given: No Adopted: No Caregiver/support person: No Lives independently: Yes Household members: none Housing: House Marital status: Number of children: 2 service: No Current occupational status: disabled Current occupational exposures/hazards: No Pets and animals: Yes Pets & animals: cat(s) History of recent travel: No Current gender identity: Male Vitals/I&O/Wt Last Vital Signs Temp 98.4 F 11/07/21 08:20 Pulse 90 11/07/21 11:32 Resp 18 11/07/21 11:32 BP 119/84 11/07/21 11:32 Pulse Ox 94 11/07/21 11:32 Weight last 48 hrs Weight 69.853 kg Physical Exam Narrative: EXAM NARRATIVE: General exam no current distress. Reports minor pain. HEENT: Pupils equally round. Oropharynx clear. Neck is supple Cardiovascular regular rate and rhythm, borderline tachycardic, no murmur Lungs coarse breath sounds on the right. Chest tube noted on the right. Abdomen is soft nontender positive bowel sounds. No obvious organomegaly exam deferred Extremities no cyanosis clubbing or edema, cap refill brisk Skin no rash Neuro no obvious focal deficits Data : 11/07/21 08:27 11/07/21 08:27 Other data: Initial troponin IX with repeat of 22. 6-hour at 21. LFTs normal Initial chest x-ray demonstrates tension pneumothorax on the right, with subsequent x-rays demonstrating expansion of lung with chest tube. CTA chest was also performed which demonstrated good chest tube placement, no pulmonary emboli, small left effusion EKG on admission demonstrated sinus tachycardia, normal axis. Nonspecific T wave abnormalities. Repeat EKG demonstrated a rate of 83, normal axis and was normal. Recent previous echocardiogram in October demonstrated normal heart function, g rade 1/4 diastolic dysfunction. A&P Assessment and plan (1) Pneumothorax: Chest tube placed in the emergency department Thoracic surgery consultation Continue chest tube to suction Status: Acute (2) COPD (chronic obstructive pulmonary disease): No evidence of exacerbation currently DuoNeb as needed Status: Chronic (3) Pulmonary embolism: SurgeryContinue anticoagulation were changed to Lovenox procedure is needed. Status: Acute (4) COVID-19: This was over 21 days ago and patient no longer needs to be isolated Status: Acute (5) Elevated troponin: Elevation consistent with type II elevation. Could consider outpatient nuclear stress testing in the future. Status: Acute Additional A&P Information Full code Lovenox for DVT prophylaxis Attestations Medical Necessity Statement*: Will need greater than 2 midnight stay for evaluation treatment of pneumothorax Time Spent in Patient Care: Greater than 35 minutes Coding Level of Care Code Acute Loss Prevention Detective for [facility] Diagnoses Pneumothorax J93.9 COPD (chronic obstructive pulmonary disease) J44.9 Pulmonary embolism I26.99 COVID-19 U07.1 Elevated troponin R77.8
--- NOTE | 2021-11-07 15:42 | P.CONIM_ITS ---
Providers/Reason For Consult Consulting Physician/Specialty*: Dr. Bowling/cardiothoracic surgery Reason for Consult*: Right pneumothorax status post right chest tube placement Requesting Physician: Dr. Zapata Attending Physician: Akash Zapata MD Primary Care Provider: Sarah Armendariz, SORTING GRAPPLE OPERATOR-C History of Present Illness History of Present Illness Eugene Polk is a pleasant 55 year old male who presents to the emergency department today complaining of shortness of breath which was rather acute. He presented by EMS. He stated he woke up feeling quite well and then began having some dyspnea after a coughing episode. He utilized a hand-held inhaler without improvement and then decided to report to the emergency department. After arrival, initial O2 saturations in the 70s and 80s prior to administration of oxygen. Subsequent evaluation revealed a large right pneumothorax which was treated with a 32 Qatari thoracostomy tube with near complete resolution. Most recent past medical history includes hospitalization on October 11 through October 13 after presenting with a positive home rapid antigen test for COVID- 19. He was discharged on home oxygen and dexamethasone. He represented on the with worsening shortness of breath and was found to have a PE by CTA and was initiated on Eliquis. He was discharged 2 days later on October 23. He has a past history of tobacco use, though none in 2 years. Currently, after chest tube placement he is resting comfortably. I have spoken personally by phone with both Dr. Camacho and with Dr. Zapata. I have personally reviewed the admitting chest x-ray, post procedure chest x-ray and CTA of this hospitalization. Review of Systems Const: Reports: fatigue; Denies: fever(s), chills, change in appetite, change in weight or night sweats Eyes: Denies: change in vision or blurry vision ENMT: Denies: odynophagia or hoarseness Card: Denies: chest pain, palpitations, irregular heart rhythm or edema Resp: Reports: dyspnea and non-productive cough; Denies: productive cough or hemoptysis GI: Denies: abdominal pain, nausea, vomiting, dysphagia, heartburn or change in bowel habits : Denies: difficulty urinating, dysuria, urinary frequency, urinary urgency or urinary hesitancy Musc: Denies: extremity pain or extremity swelling Skin/Breast: Denies: rash Neuro: Denies: headache(s), numbness in extremities, weakness in extremities or sensory changes Psych: Denies: anxiety, depression or change in appetite Endo: Denies: polyuria, polydipsia or cold intolerance Smith/Lymph: Denies: easy bruising, easy bleeding, petechiae or enlarged lymph nodes Meds/Allergies Home Medications and Allergies Home Medications Medication Instructions Recorded Confirmed Last Taken Type omeprazole 40 mg capsule,delayed See Rx Instructions .ROUTE 04/24/21 11/07/21 11/06/21 Rx release .COMPLEX #30 cap budesonide 160 mcg-glycopyr 9 2 inh INHALATION BID #10.7 g 08/07/21 11/07/21 11/07/21 Rx mcg-formot 4.8 mcg/actuation HFA inhaler lovastatin 20 mg tablet 20 mg PO DAILY #90 tab 08/07/21 11/07/21 11/06/21 Rx sucralfate 1 gram tablet 1 g PO .4 times day #360 tab 08/07/21 11/07/21 11/06/21 Rx tamsulosin 0.4 mg capsule 0.4 mg PO DAILY #90 cap 08/07/21 11/07/21 11/06/21 Rx albuterol sulfate 2 inh INHALATION Q4H PRN #18 gm 10/11/21 11/07/21 11/07/21 Rx albuterol sulfate 2.5 mg INHALATION Q4H PRN #75 ml 10/16/21 11/07/21 Unknown Rx apixaban 5 mg tablet 5 mg PO BID #60 tab 10/26/21 11/07/21 11/06/21 Rx ferrous gluconate 240 mg (27 mg 240 mg PO DAILY #30 tab 10/26/21 11/07/21 11/07/21 Rx iron) tablet metoprolol succinate 25 mg 25 mg PO DAILY #30 tab 10/26/21 11/07/21 11/06/21 Rx tablet,extended release 24 hr Allergies Allergy/AdvReac Type Severity Reaction Status Date / Time No Known Allergies Allergy Verified 11/07/21 08:18 PFSH Acute PFSH: Medical History Bloating BPH loc w urin obs/LUTS Colon polyp COPD (chronic obstructive pulmonary disease) with emphysema COVID-19 Gastritis and duodenitis GERD (gastroesophageal reflux disease) GERD with esophagitis Hyperlipidemia, mixed Screening PSA (prostate specific antigen) Surgical History H/O colonoscopy with polypectomy Family History Family/Other No problems noted. Mother , AT AGE 83 No problems noted. Father , AT AGE 67 No problems noted. Social History Second hand smoke exposure: No Smoking risk assessment/counseling performed?: No Alcohol intake: never Desire information about alcohol rehabilitation?: No Counseling given: No Desire information about substance/drug rehabilitation?: No Counseling given: No Adopted: No Caregiver/support person: No Lives independently: Yes Household members: none Housing: House Marital status: Number of children: 2 service: No Current occupational status: disabled Current occupational exposures/hazards: No Pets and animals: Yes Pets & animals: cat(s) History of recent travel: No Current gender identity: Male Vitals/I&O/Wt Last Vital Signs Temp 98.4 F 11/07/21 08:20 Pulse 90 11/07/21 11:32 Resp 18 11/07/21 11:32 BP 119/84 11/07/21 11:32 Pulse Ox 94 11/07/21 11:32 Weight last 48 hrs Weight 154 lb Physical Exam Const: COMMON NORMALS: patient oriented x3 HENMT: COMMON NORMALS: normocephalic, atraumatic, hearing grossly normal bilaterally and external ears normal; dentition not normal HEAD & SCALP: normocephalic and atraumatic EXTERNAL EAR: Yes external ears normal TEETH & GINGIVA: Yes abnormal tooth and as sociated gingiva Neck/C-Spine: COMMON NORMALS: full ROM, no lymphadenopathy and no JVD GENERAL: Yes normal visual inspection, Yes trachea midline and No anterior neck swelling Chest: COMMONS NORMALS: normal inspection of the chest; negative for normal palpation of entire chest wall OTHER: Mild right-sided crepitance related to subcutaneous emphysema noted on chest x-ray Resp: COMMON NORMALS: normal respiratory effort, No retractions and No use of accessory muscles EFFORT & INSPECTION: Yes able to speak in complete sentences, Yes symmetric chest movement, No tachypneic, No Actively coughing, No tracheal deviation and Yes prolonged expiratory phase (Mild) AUSCULTATION: bronchovesicular breath sounds Cardio: COMMON NORMALS: no JVD, regular rate, regular rhythm and S1 normal heart sound present RATE: regular rate RHYTHM: regular rhythm HEART SOUNDS: S1 normal heart sound present GI: COMMON NORMALS: Normal to inspection, nondistended, normoactive bowel sounds present and no bruits Extremity: COMMON NORMALS: no clubbing, cyanosis or edema Neuro: COMMON NORMALS: patient oriented x3, moves all extremities, no focal motor deficits and no sensory deficits noted A&P Assessment and plan (1) Pneumothorax: Very pleasant 55-year-old gentleman with a spontaneous right pneumothorax, which appears to be in following a coughing episode this morning. He does have a long history tobacco use, having ceased about 2 years ago. Right upper thorax nicely relieved with a right-sided chest tube. He does have a moderate air leak on suction. Recommendations: I would continue oxygen at 2 L nasal cannula for nitrogen washout. Continue chest tube to suction. I would recommend exchanging the current wireless system for a standard Pleur-evac. Chest x-ray in a.m. Greatly appreciate the expertise and oversight of our hospitalist colleagues. Status: Acute Consult Attestations Medical Necessity Statement: Right pneumothorax, resolved with right chest tube Time Spent in Patient Care: 16 - 35 minutes Coding Level of Care Code Acute Topographical Engineer for [facility] Diagnoses Pneumothorax J93.9
[2021-11-07] MEDS: enoxaparin 80 mg/0.8 mL Syringe 70 MG SUBCUT (17:42)
[2021-11-07] MEDS: D5-NS 0.45% + KCL 20 mEq 20 MEQ/1,000 ML BAG 100 MEQ IV (17:43)
[2021-11-07] MEDS: sucralfate 1 gm Tablet PO (20:30)
[2021-11-07] MEDS: budesonide 0.5 mg/2 mL Neb INHALATION (20:49)
[2021-11-07] MEDS: ipratropium-albuterol 3 mL Neb INHALATION (20:49)
[2021-11-07 22:26] LABS: Add Urine Microscopic? NO; Charge for UA Resulting for Rev
[2021-11-07 22:37] LABS: Bilirubin Urine Neg (Negative); Blood Urine Neg (Negative); Glucose Urine UA 1+ (Normal); Ketones Urine Negative (Negative); Leukocyte Esterase Urine Negative (Negative); Nitrate Urine Negative (Negative); Protein Urine Neg (Negative); Specific Gravity, Urine 1.005 (1.005-1.030); Urine Appearance Clear (CLEAR); Urine Color Yellow (Yellow); Urobilinogen Urine Neg (Negative); pH Urine 7 (5-7)
[2021-11-08] VITALS (10 sets, daily range): BP systolic 114–135; BP diastolic 72–78; PULSE 66–93; RESP 16–20; TEMP 36.5–36.9; O2SAT 92–98
[2021-11-08] MEDS: acetaminophen 325 mg Tablet 650 MG PO ×3 (03:18→20:05)
[2021-11-08] MEDS: ondansetron 2 mg/ML SDV 2 mL 4 MG IVP (03:19)
[2021-11-08] MEDS: D5-NS 0.45% + KCL 20 mEq 20 MEQ/1,000 ML BAG 100 MEQ IV (03:19)
[2021-11-08] MEDS: enoxaparin 80 mg/0.8 mL Syringe 70 MG SUBCUT ×2 (05:01→17:27)
--- NOTE | 2021-11-08 06:00 | XRR_ITS ---
PROCEDURE INFORMATION: Exam: XR Chest Exam date and time: 11/08/2021 6:00 AM Age: 55 years old Clinical indication: Device placement; Chest tube; Additional info: Status post right chest tube secondary to spontaneous pneumo TECHNIQUE: Imaging protocol: XR of the chest. Views: 1 view. COMPARISON: CR XR chest 1V portable [id number] 11/07/2021 12:10 PM FINDINGS: Tubes, catheters and devices: The right chest tube appears to have been pulled back slightly in the interval. Lungs: No CHF/pulmonary edema. Mild lower lung base opacities, similar to the prior exam. This could represent atelectasis and/or pneumonia. Pleural spaces: Suspect a small residual pneumothorax visible in the lateral right lower hemithorax, similar to the prior exam. No definite pleural fluid. Heart/Mediastinum: Heart size is within normal limits. Bones/joints: No significant acute finding. Soft tissues: Continued subcutaneous gas along the right chest wall and lower neck. XR/XR chest 1V portable [id number] IMPRESSION: 1. Suspect a small residual pneumothorax visible in the lateral right lower hemithorax, similar to the prior exam. 2. The right chest tube appears to have been pulled back slightly in the interval. 3. Mild lower lung base opacities, similar to the prior exam. 4. Other findings discussed above.
[2021-11-08 06:11] LABS: Basophils % 0.1 %; Hematocrit 37.2 % (42.0-52.0); Hemoglobin 11.5 g/dL (11.7-16.6); Lymphocytes # 1.2 10^3/uL (0.8-4.8); Lymphocytes % 7.3 %; Mean Corpuscular HGB Conc 30.9 g/dL (30.0-36.0); Mean Corpuscular Hemoglobin 28.8 pg (28.0-34.0); Mean Platelet Volume 10.3 fL (7.4-10.4); Monocytes # 1.3 10^3/uL (0.2-0.9); Monocytes % 8.2 %; Neutrophils # 13.09 10^3/uL (1.8-7.7); Neutrophils % 82.9 %; Nucleated Red Blood Cells % 0 %; Platelet Count 384 10^3/cmm (130-400); Red Cell Distribution Width 14.3 % (12.1-15.1); White Blood Count 15.8 10^3/uL (4.0-10.0)
--- NOTE | 2021-11-08 06:30 | PM.PN ---
Subjective Subjective: Interval history: Day #1 status post right chest tube placement to the emergency department secondary to large right spontaneous pneumothorax. I still noticed substantial air leak on this morning's exam. I change all of his original dressings to the wound smaller dressing and also reinforced his chest tube connection and changed his dry Pleur-evac to a standard system. I again reviewed his CTA from this hospitalization yesterday as well as study back in October. He has generalized reticular COPD though no diet bulla formations. From initial impression this morning, his airleak appears to be elevated. I cannot find any system failure. This morning's chest x-ray is pending. Vitals/I&O/Wt Last Vital Signs Temp 98.3 F 11/08/21 04:00 Pulse 76 11/08/21 04:00 Resp 18 11/08/21 04:00 BP 135/78 11/08/21 04:00 Pulse Ox 95 11/08/21 04:00 11/07/21 11/07/21 11/08/21 14:59 22:59 06:59 Intake Total 1200 / 1200 Output Total 340 / 340 935 / 1275 Balance -340 / -340 265 / -75 Weight last 48 hrs Weight 154 lb Physical Exam Chest: OTHER: Right chest wall subcutaneous emphysema from prior chest tube placement. All dressings were removed and reexamined and then replaced with smaller dressings. Chest tube appears to be in good position with a good seal at the skin level. All connections were reassessed. New Pleur-evac was placed. Resp: COMMON NORMALS: normal respiratory effort, No retractions, No use of accessory muscles and clear to auscultation bilaterally AUSCULTATION: clear to auscultation bilaterally Data : 11/08/21 04:51 11/07/21 08:27 A&P Assessment and plan (1) Pneumothorax: Day #1 status post chest tube placement in the emergency department. Continued substantial air leak. Plan: Awaiting this morning's chest x-ray If the air leak does not begin to dissipate the next 24 to 48 hours, we should consider transitioning to a thoracic vent for hopeful outpatient management, though the current amount of air leak is concerning the does not appear to be particularly physiologically stressing and to Zahraa Polk. We could consider VATS, though without substantial bulla formation, it would be quite challenging to find the actual point of air leak and this would essentially be a chemical mechanical pleurodesis. I would like to try to avoid this early if possible. Would recommend continuing chest tube to suction now chest x-ray in a.m. I will reassess this afternoon. Greatly appreciate expertise of our hospitalist colleagues. Status: Acute Attestations Medical Necessity Statement*: Spontaneous pneumothorax, resolved with chest tube. Air leak continues. Time Spent in Patient Care: 16 - 35 minutes Coding Level of Care Code Acute Supervisor Shipping for [facility] Diagnoses Pneumothorax J93.9
[2021-11-08 06:39] LABS: Alanine Aminotransferase 34 U/L (0-41); Albumin Level 3.6 g/dL (3.5-5.2); Alkaline Phosphatase 115 IU/L (40-130); Anion Gap 18.3 (5-19); Aspartate Amino Transferase 21 U/L (0-40); Blood Urea Nitrogen 12 mg/dL (6-20); Calcium 9.3 mg/dL (8.5-10.5); Carbon Dioxide 21 mmol/L (22-29); Chloride 103 mmol/L (98-107); Globulin 3.2 g/dL (1.3-4.6); Glomerular Filtration Rate 116.7 mL/min (90-130); Glucose 134 mg/dL (65-115); Osmolality Calculated 288 mOsm/kg (285-295); Potassium 4.3 mmol/L (3.5-5.1); Sodium 138 mmol/L (136-145); Total Bilirubin 0.3 mg/dL (0.15-1.2); Total Protein 6.8 g/dL (6.6-8.7)
[2021-11-08] MEDS: budesonide 0.5 mg/2 mL Neb INHALATION ×2 (09:09→20:22)
[2021-11-08] MEDS: ipratropium-albuterol 3 mL Neb INHALATION ×2 (09:09→20:22)
[2021-11-08] MEDS: pantoprazole DR 40 mg Tablet PO (09:33)
[2021-11-08] MEDS: sucralfate 1 gm Tablet PO ×4 (09:33→20:05)
[2021-11-08] MEDS: atorvastatin 40 mg Tablet 20 MG PO (09:33)
[2021-11-08] MEDS: metoprolol succinate ER (24 HR) 25 mg Tablet PO (09:33)
[2021-11-08] MEDS: tamsulosin 0.4 mg Capsule PO (09:34)
--- NOTE | 2021-11-08 10:39 | PC.CHAP ---
Pastoral Care Encounter/Spiritual Assessment Type of Contact [] Declined loading supervisor visit [] Patient/Family/Request visit [] Outpatient visit [] Follow-up visit [] Physician referral [] Code/Alert [x] Routine visit [] Staff referral [] Actively dying [] Patient sleeping [] Family support [] [] Out of room [] Palliative care [] [] Receiving care in room [] Pre-surgical visit [] Trauma [] Long length of stay [] ICU visit [] Other: Relational/Emotional Strength [x] Patient feels connected with others/family/visitors/staff [] Distress [] Loneliness/isolation [] Abandonment Spirituality of Patient x[] Person of Venecia [x] Attends Orthodox of their [place] [x] Believes in Prayer [] Reads Bible or Rastafari materials [] There are Spiritual issues to be addressed Websphere Message Broker Developer Interventions [x] Prayer []x Active listening [x] Non-anxious presence [x] Spiritual/emotional support [] Crisis/trauma care [x] Spiritual counseling [] Bereavement support [] Provided bereavement packet [] Provided Bible/devotional materials [] Provided toy/stuffed animal, coloring book to patient or family member [] Provided Communion [] Anointing/[place] [] Salvation [x] Completed spiritual assessment [] Other: Impact on Illness or Injury [] Angry [] Fearful [] Anxious [] Often cries [] Exhaustion [] Unable to work [] Unable to attend latter-day [] Unable to walk/stand [] Unable to read [] Unable to drive [] Unable to eat/drink [] Unable to sleep [] Unable to be with family [] Patient intubated [] Other: Summary Time spent with patient 10 min
--- NOTE | 2021-11-08 13:06 | PM.PN ---
Subjective Subjective: Interval history: Eugene reports he is doing okay. No shortness of breath. States pain is minimal. Medications: Reviewed: Yes Vitals/I&O/Wt Last Vital Signs Temp 97.7 F 11/08/21 11:49 Pulse 81 11/08/21 11:49 Resp 18 11/08/21 11:49 BP 129/77 11/08/21 11:49 Pulse Ox 96 11/08/21 11:49 11/07/21 11/08/21 11/08/21 22:59 06:59 14:59 Intake Total 1551.667 / 1551.667 120 / 120 Output Total 340 / 340 935 / 1275 250 / 250 Balance -340 / -340 616.667 / 276.667 -130 / -130 Weight last 48 hrs Weight 69.853 kg Physical Exam Narrative: EXAM NARRATIVE: General exam no current distress. HEENT: Pupils equally round. Oropharynx clear. Neck is supple Cardiovascular regular rate and rhythm, borderline tachycardic, no murmur Lungs coarse breath sounds on the right. Chest tube noted on the right. Air leak is noted Abdomen is soft nontender positive bowel sounds. No obvious organomegaly Extremities no cyanosis clubbing or edema, cap refill brisk Data : 11/08/21 04:51 11/08/21 04:51 A&P Assessment and plan (1) Pneumothorax: Chest tube placed in the emergency department Thoracic surgery consultation appreciated Continue chest tube to suction Chest tube has airleak Status: Acute (2) COPD (chronic obstructive pulmonary disease): No evidence of exacerbation currently DuoNeb as needed Status: Chronic (3) Pulmonary embolism: Continue Lovenox in case procedure is noted, with the intent to change to Eliquis on discharge. His pulmonary emboli were noted on CTA October 21. Status: Acute (4) COVID-19: This was over 21 days ago and patient no longer needs to be isolated Status: Acute (5) Elevated troponin: Elevation consistent with type II elevation. Could consider outpatient nuclear stress testing in the future. Status: Acute Additional A&P Information Full code Lovenox for DVT prophylaxis Attestations Medical Necessity Statement*: Needs continued hospital stay secondary to spontaneous pneumothorax, currently with chest tube. Coding Level of Care Code Acute Retail Account Representative for [facility] Diagnoses Pneumothorax J93.9 COPD (chronic obstructive pulmonary disease) J44.9 Pulmonary embolism I26.99 COVID-19 U07.1 Elevated troponin R77.8
--- NOTE | 2021-11-08 14:09 | PC.NURSE ---
Notified Dr Zapata that patient is requesting some TUMS or acid relief med of some sort.
--- NOTE | 2021-11-08 17:34 | PM.PN ---
Subjective Subjective: Interval history: Up in chair on evening rounds. Vital signs are stable. I reviewed this morning's chest x-ray. Unfortunately, he still has a substantial air leak. I did change his dressings this morning and transition him to a water-based Pleur-evac at 20 cm of water suction. Vitals/I&O/Wt Last Vital Signs Temp 98.3 F 11/08/21 15:27 Pulse 88 11/08/21 15:27 Resp 18 11/08/21 15:27 BP 119/76 11/08/21 15:27 Pulse Ox 95 11/08/21 15:27 11/08/21 11/08/21 11/08/21 06:59 14:59 22:59 Intake Total 1551.667 / 1551.667 240 / 240 Output Total 935 / 1275 250 / 250 Balance 616.667 / 276.667 -10 / -10 Weight last 48 hrs Weight 154 lb Data : 11/08/21 04:51 11/08/21 04:51 A&P Assessment and plan (1) Pneumothorax: Persistent air leak approximately 24 hours after chest tube placement for spontaneous pneumothorax Recommendation: If there is no substantial detriment of the air leak in the next 24 hours I would recommend consideration for thoracoscopy with chemical and mechanical pleurodesis on Saturday. I discussed this with Mr. Polk and family this afternoon. They are in agreement. I would like to try to avoid this if possible given his other comorbidities, though his air leak at the present time does appear to be substantial. Status: Acute Attestations Medical Necessity Statement*: Continued air leak status post chest tube status post spontaneous pneumothorax Time Spent in Patient Care: 16 - 35 minutes Coding Level of Care Code Acute Drum Sander Offbearer for Renny Dao Diagnoses Pneumothorax J93.9
[2021-11-09] VITALS (10 sets, daily range): BP systolic 112–123; BP diastolic 73–77; PULSE 69–96; RESP 16–21; TEMP 36.4–37.1; O2SAT 94–98
[2021-11-09 03:04] LABS: Basophils % 0.3 %; Eosinophils # 0.1 10^3/uL (0.0-0.8); Eosinophils % 1.1 %; Hematocrit 36.3 % (42.0-52.0); Hemoglobin 11.4 g/dL (11.7-16.6); Lymphocytes # 1.6 10^3/uL (0.8-4.8); Lymphocytes % 14.8 %; Mean Corpuscular HGB Conc 31.4 g/dL (30.0-36.0); Mean Corpuscular Hemoglobin 29.2 pg (28.0-34.0); Mean Corpuscular Volume 92.8 fl (80-94); Mean Platelet Volume 10.4 fL (7.4-10.4); Monocytes # 0.9 10^3/uL (0.2-0.9); Monocytes % 8.4 %; Neutrophils # 8.27 10^3/uL (1.8-7.7); Neutrophils % 74.4 %; Nucleated Red Blood Cells % 0 %; Platelet Count 362 10^3/cmm (130-400); Red Blood Count 3.91 10^6/uL (4.1-5.3); Red Cell Distribution Width 14.5 % (12.1-15.1); White Blood Count 11.1 10^3/uL (4.0-10.0)
[2021-11-09] MEDS: acetaminophen 325 mg Tablet 650 MG PO ×3 (03:04→22:42)
[2021-11-09 03:13] LABS: Anion Gap 15.4 (5-19); Blood Urea Nitrogen 13 mg/dL (6-20); Calcium 8.7 mg/dL (8.5-10.5); Carbon Dioxide 25 mmol/L (22-29); Chloride 104 mmol/L (98-107); Glomerular Filtration Rate 87.3 mL/min (90-130); Glucose 107 mg/dL (65-115); Osmolality Calculated 291 mOsm/kg (285-295); Potassium 4.4 mmol/L (3.5-5.1); Sodium 140 mmol/L (136-145)
[2021-11-09] MEDS: enoxaparin 80 mg/0.8 mL Syringe 70 MG SUBCUT ×2 (05:32→18:08)
--- NOTE | 2021-11-09 06:00 | XR_ITS ---
WS: [id number] Portable AP upright chest, 11/09/2021 Clinical Data: Day #2 chest tube status post pneumothorax, air leak continu Comparison: Portable chest, 11/08/2021 Findings: The right chest tube remains in the same position. There is a minimal right basilar pneumot horax. There is subcutaneous emphysema in the right supraclavicular region and right chest and abdomi nal mcfarlane. There is patchy opacity in the left lower lobe which may represent atelectasis and/or pneu monia. The heart is slightly enlarged. Monitor leads are on the chest wall. XR/XR chest 1V portable [id number] Impression: 1. No change in right chest tube position. 2. No change in small right basilar pneumothorax and right subcutaneous emphyse ma. 3. Patchy atelectasis and/or pneumonia in the left lower lobe.
--- NOTE | 2021-11-09 06:28 | P.PN_ITS ---
Subjective Subjective: Interval history: Chest tube day #2 secondary to spontaneous pneumothorax. Mr. Polk is again up in chair. His air leak, while still present, does not quantitatively, appear to be decreased. I did reinspect his chest wall dressings and changed these. He otherwise looks quite good and states he does not feel better with less chest wall discomfort and dyspnea. Chest tube pleural drainage is low, as expected. This morning's chest x-ray, the subcutaneous emphysema appears to be slightly increased and the chest tube appears to again have withdrawn somewhat though it is still well within the pleural cavity. Vitals/I&O/Wt Last Vital Signs Temp 98.2 F 11/09/21 04:00 Pulse 69 11/09/21 04:00 Resp 19 H 11/09/21 04:00 BP 118/77 11/09/21 04:00 Pulse Ox 97 11/09/21 04:00 11/08/21 11/08/21 11/09/21 14:59 22:59 06:59 Intake Total 240 / 240 240 / 480 440 / 920 Output Total 250 / 250 150 / 400 500 / 900 Balance -10 / -10 90 / 80 -60 / 20 Weight last 48 hrs Weight 154 lb Physical Exam Chest: COMMONS NORMALS: normal inspection of the chest OTHER: Chest tube in good position. Chest wall is stable. Minimal subcutaneous emphysema. Resp: COMMON NORMALS: normal respiratory effort, No retractions, No use of accessory muscles and clear to auscultation bilaterally EFFORT & INSPECTION: Yes able to speak in complete sentences AUSCULTATION: clear to auscultation bilaterally Cardio: COMMON NORMALS: regular rate, regular rhythm and S1 normal heart sound present RATE: regular rate RHYTHM: regular rhythm HEART SOUNDS: S1 normal heart sound present Data : 11/09/21 02:36 11/09/21 02:36 A&P Assessment and plan (1) Pneumothorax: Chest tube day #2 secondary to spontaneous pneumothorax. Continued air leak, though subjectively appears to be modestly improved Plan: We have tentatively scheduled for potential thoracoscopy with pleurodesis tomorrow at 12 noon given OR time and staff availability. I will reassess again later today and continually as to whether his air leak is showing evidence for further resolution. There is a potential that we might be able to transition the chest tube to a thoracic vent which could be managed on an outpatient basis, if the air leak volume continues to decrease. I discussed this at length with Felicitas and he is in agreement with our current plans. For now, continue chest tube to suction along with incentive spirometry and pulmonary toilet. I will continue to reassess throughout the day. Again, I greatly appreciate the support and expertise of our hospitalist colleagues. 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
[2021-11-09] MEDS: budesonide 0.5 mg/2 mL Neb INHALATION ×2 (08:02→19:55)
--- NOTE | 2021-11-09 08:06 | PC.NURSE ---
Crepitis is prest from base of neck down to breast. Posterior from mid back to flank on right side. Night nursing staff stated Dr. Sherman was aware.
[2021-11-09] MEDS: metoprolol succinate ER (24 HR) 25 mg Tablet PO (08:31)
[2021-11-09] MEDS: tamsulosin 0.4 mg Capsule PO (08:31)
[2021-11-09] MEDS: atorvastatin 40 mg Tablet 20 MG PO (08:32)
[2021-11-09] MEDS: sucralfate 1 gm Tablet PO ×4 (08:32→20:07)
[2021-11-09] MEDS: pantoprazole DR 40 mg Tablet PO (08:32)
--- NOTE | 2021-11-09 10:53 | PM.PN ---
Documented by User: WARNER Eckert STDNT 11/09/21 11:00 Subjective Subjective: Interval history: Eugene reports his chest discomfort improved last night. He currently does not complain of any chest pain or SOB. He has a cough that is mostly dry. Vitals/I&O/Wt Last Vital Signs Temp 98.1 F 11/09/21 07:17 Pulse 76 11/09/21 08:10 Resp 16 11/09/21 08:05 BP 116/73 11/09/21 07:17 Pulse Ox 98 11/09/21 08:05 11/08/21 11/09/21 11/09/21 22:59 06:59 14:59 Intake Total 240 / 480 440 / 920 240 / 240 Output Total 150 / 400 500 / 900 200 / 200 Balance 90 / 80 -60 / 20 40 / 40 Physical Exam Narrative: EXAM NARRATIVE: General: no acute distress HEENT: Pupils equally round. Oropharynx clear. Neck: supple Cardiovascular: Regular rate and rhythm, no murmurs Lungs: clear, improved from yesterday. Chest tube noted on the right. Air leak is noted Abdomen: soft nontender positive bowel sounds. No obvious organomegaly Extremities: no cyanosis clubbing or edema, cap refill brisk Data : 11/09/21 02:36 11/09/21 02:36 A&P Additional A&P Information (1) Pneumothorax: Chest tube placed in the emergency department Thoracic surgery consultation appreciated Continue chest tube to suction Chest tube has airleak. Cardiothoracic surgery will continue to reassess throughout the day. They have tentatively planned a potential thoracoscopy for tomorrow at noon, but if air leak volume continues to decrease, chest tube could potentially be transitioned to thoracic vent which could be managed outpatient. Status: Acute (2) COPD (chronic obstructive pulmonary disease): No evidence of exacerbation currently DuoNeb as needed Status: Chronic (3) Pulmonary embolism: Continue Lovenox in case procedure is noted, with the intent to change to Eliquis on discharge. His pulmonary emboli were noted on CTA October 21. Status: Acute (4) COVID-19: This was over 21 days ago and patient no longer needs to be isolated Status: Acute (5) Elevated troponin: Elevation consistent with type II elevation. Could consider outpatient nuclear stress testing in the future. Status: Acute Coding Level of Care Code Acute Dielectric Machine Operator for Chg Fwd Documented by User: Akash Zapata MD 11/09/21 11:04 Subjective Subjective: Interval history: Agree with above. I interviewed the patient as well. Medications: Reviewed: Yes Physical Exam Narrative: EXAM NARRATIVE: Agree with above. No changes warranted. Data : 11/09/21 02:36 11/09/21 02:36 Other data: Chest x-ray reviewed. Still small residual pneumothorax. A&P Additional A&P Information Agree with above. No need for laboratory tomorrow Attestations Medical Necessity Statement*: Needs continued hospitalization secondary to pneumothorax requiring chest tube placement. Coding Level of Care Code Acute Dielectric Machine Operator for [place] Feliberto
--- NOTE | 2021-11-09 15:08 | PM.MISC ---
Miscellaneous Note Purpose of Documentation: Mr. Polk is up in chair on rounds this afternoon. He has no complaints. He still has a modest air leak which appears to be about the same as this morning, but clearly no worse. Chest tube dressings remain in place. Plan: We will continue chest tube to suction tonight with plan for chest x-ray in the morning. He will be n.p.o. after midnight. I will reassess his chest tube output as far as airleak tomorrow to make determination is whether we should proceed with thoracoscopy and pleurodesis or consideration of transitioning to a thoracic vent for outpatient management. I have discussed with Dr. Zapata. We will reconfirm tomorrow after morning rounds to make a determination as to our next steps of progression. Mr. Polk is aware of our plans and concurs.
[2021-11-09] MEDS: sennosides-docusate Tablet 2 TAB PO (18:08)
[2021-11-09] MEDS: ipratropium-albuterol 3 mL Neb INHALATION (19:55)
[2021-11-10] VITALS (15 sets, daily range): BP systolic 104–138; BP diastolic 65–85; PULSE 70–98; RESP 17–24; TEMP 36.4–37.1; O2SAT 93–99
--- NOTE | 2021-11-10 00:30 | PC.NURSE ---
Assessment No change from start of shift in nursing assessment or chest tube and wound assessments.
[2021-11-10 03:27] LABS: Basophils % 0.2 %; Eosinophils # 0.2 10^3/uL (0.0-0.8); Eosinophils % 2.1 %; Hematocrit 36.7 % (42.0-52.0); Hemoglobin 11.5 g/dL (11.7-16.6); Lymphocytes # 1.5 10^3/uL (0.8-4.8); Mean Corpuscular HGB Conc 31.3 g/dL (30.0-36.0); Mean Corpuscular Hemoglobin 29.3 pg (28.0-34.0); Mean Corpuscular Volume 93.4 fl (80-94); Mean Platelet Volume 10.4 fL (7.4-10.4); Monocytes # 0.5 10^3/uL (0.2-0.9); Monocytes % 6.3 %; Neutrophils # 6.27 10^3/uL (1.8-7.7); Neutrophils % 72.8 %; Nucleated Red Blood Cells % 0.2 %; Platelet Count 334 10^3/cmm (130-400); Red Blood Count 3.93 10^6/uL (4.1-5.3); Red Cell Distribution Width 14.4 % (12.1-15.1); White Blood Count 8.6 10^3/uL (4.0-10.0)
[2021-11-10] MEDS: ipratropium-albuterol 3 mL Neb INHALATION ×2 (03:30→20:12)
[2021-11-10 03:32] LABS: INR 1.03 (0.8-1.2)
[2021-11-10 03:46] LABS: Anion Gap 14.9 (5-19); Blood Urea Nitrogen 15 mg/dL (6-20); Calcium 9.2 mg/dL (8.5-10.5); Carbon Dioxide 24 mmol/L (22-29); Chloride 104 mmol/L (98-107); Glucose 97 mg/dL (65-115); Osmolality Calculated 289 mOsm/kg (285-295); Potassium 3.9 mmol/L (3.5-5.1); Sodium 139 mmol/L (136-145)
--- NOTE | 2021-11-10 05:51 | PC.NURSE ---
Assessments No change in nursing assessment. Chest tube wound dressing reinforced as bottom was coming loose. 45mL serosanguineous output from chest tube. Intermittent air leak at a one remains, crepitus unchanged.
--- NOTE | 2021-11-10 06:00 | XR_ITS ---
WS: [id number] Portable AP upright chest, 11/10/2021 Clinical Data: Day# 3 chest tube, decreasing airleak Comparison: Portable chest, 11/09/2021 Findings: The right chest tube remains in the same position. There is a small right basilar pneumotho rax. Subcutaneous emphysema along the right lateral chest, abdomen and the supraclavicular region re rebecca the same. There is left basilar atelectasis. The heart remains normal. Monitor leads are on the chest wall. XR/XR chest 1V portable [id number] Impression: No change from yesterday's portable chest.
--- NOTE | 2021-11-10 06:59 | PM.PN ---
Documented by User: WARNER Eckert STDNT 11/10/21 08:52 Subjective Subjective: Interval history: Eugene experiences some left-sided rib cage pain but otherwise denies any significant SOB or chest pain this morning. He notices he is coughing less frequently than before. Vitals/I&O/Wt Last Vital Signs Temp 98.4 F 11/10/21 04:00 Pulse 76 11/10/21 04:00 Resp 20 H 11/10/21 04:00 BP 116/66 11/10/21 04:00 Pulse Ox 96 11/10/21 04:00 11/09/21 11/09/21 11/10/21 14:59 22:59 06:59 Intake Total 480 / 480 740 / 1220 Output Total 200 / 200 245 / 445 695 / 1140 Balance 280 / 280 495 / 775 -695 / 80 Physical Exam Narrative: EXAM NARRATIVE: General: in no acute distress, breathing comfortably on 2L nasal cannula, sitting up in chair HEENT: pupils equally round, oropharynx clear Neck: supple Cardiovascular: regular rate and rhythm, no murmurs Lungs: clear bilaterally. Chest tube noted on right. Air leak noted. Abdomen: soft, nontender, positive bowel sounds. No obvious organomegaly Extremities: no cyanosis, clubbing, or edema, cap refill brisk Data : 11/10/21 02:24 11/10/21 02:24 A&P Additional A&P Information (1) Pneumothorax: Chest tube placed in the emergency department Thoracic surgery consultation appreciated On chest tube day 3 with continued airleak. Cardiothoracic surgery will proceed with thoracoscopy with mechanical and chemical pleurodesis around noon today with ICU stay planned immediately postop for adequate analgesia. Status: Acute (2) COPD (chronic obstructive pulmonary disease): No evidence of exacerbation currently DuoNeb as needed Status: Chronic (3) Pulmonary embolism: Continue Lovenox in case procedure is noted, with the intent to change to Eliquis on discharge. His pulmonary emboli were noted on CTA October 21. Status: Acute (4) COVID-19: This was over 21 days ago and patient no longer needs to be isolated Status: Acute (5) Elevated troponin: Elevation consistent with type II elevation. Could consider outpatient nuclear stress testing in the future. Status: Acute Coding Level of Care Code Acute Industrial Equipment Mechanic for Chg Fwd Documented by User: Akash Zapata MD 11/10/21 09:18 Subjective Subjective: Interval history: Agree with above, no changes warranted. Medications: Reviewed: Yes Physical Exam Narrative: EXAM NARRATIVE: Agree with above. I examined the patient as well. No changes. Certainly chest tube still has air leak. Data : 11/10/21 02:24 11/10/21 02:24 A&P Additional A&P Information Fluoroscopy today. Agree with what is written above. Will need reinitiation of anticoagulation at some point secondary to history of pulmonary embolism, after this is cleared with surgery. Plan to transition to ICU for close monitoring following surgery. Attestations Medical Necessity Statement*: Needs continued hospitalization secondary to pneumothorax with persistent air leak needing definitive surgery. Coding Level of Care Code Acute Industrial Equipment Mechanic for Renny Dao
--- NOTE | 2021-11-10 07:28 | ANES.PREANE2 ---
Pre-Anesthetic Assessment Pre-Anesthetic Assessment: Height/Weight: Height 1.68 m Weight 69.853 kg Temp Pulse Resp BP Pulse Ox 98.4 F 76 20 H 116/66 96 11/10/21 04:00 11/10/21 04:00 11/10/21 04:00 11/10/21 04:00 11/10/21 04:00 Preop Diagnosis: Bloating Proposed Procedure: Operation Date: 11/10/21 12:00 Proposed Procedures p Pleurodesis(Right) - Jake Bowling MD s VATS(Right) - Jake Bowling MD Was Beta Trinh taken within 24 hours: Yes Was Clonidine taken within 24 hours: N/A Last intake: 11/09/21 Social: Social History: No alcohol and No tobacco Exam: Pre-Anes Outpt Exam: alert, oriented x 3 and regular rate & rhythm Additional Exam Findings (including area of procedure): Diminished lung sounds right, chest tube right Airway: Submandibular: WNL Cervical ROM: WNL MP: 2 Dentition: Chipped and Loose Additional comments: Very poor dentition Pulmonary: Pulmonary: COPD Comments: Hx of Pneuomothorax found on admission 11/07 Hx of PE 10/21 started on Eliquis, discharged 10/23 Hx of COVID19 hospitalization 10/11/21 through 10/13/21 Former smoker COPD CXR 11/09 Impression: 1. No change in right chest tube position. 2. No change in small right basilar pneumothorax and right subcutaneous emphysema. 3. Patchy atelectasis and/or pneumonia in the left lower lobe. CV/HEM: Comments: hgb 11. 5 EKG NSR TTE 10/24 CONCLUSIONS 1-Normal left ventricular cavity size. Normal left ventricular systolic function. No regional wall motion abnormalities. Left ventricular ejection fraction is estimated at 60 %. Grade I/IV diastolic dysfunction (abnormal relaxation filling pattern), normal to mildly elevated filling pressures. 2-There is no pericardial effusion. 3-No significant valve abnormalities. 4-The right ventricle is normal in size and function. RVSP could not be calculated due to incomplete tricuspid regurgitation velocity profile. 5-There is no pericardial effusion. 6-There are no prior echocardiogram studies to compare. : : None reported Comments: BPH Hepatic: Hepatic: None reported GI: GI: GERD Metabolic: Metabolic: None reported Musc/skel: Musc/skel: None reported Neuropsych: Neuropsych: None reported Anesthetic Plan: ASA status: 4 (55 year old with recent PE on blood thinner now with pneumothorax) Anesthesia: General and Regional (specify below) (Epidural) Other: I discussed risk and benefits of epidural for post op pain control and general. Plan GETA, arterial line, and epidural. Risk of > 500 ml blood loss (7ml/kg in children): No Meds/Allergies Current Medications: Current Medications Generic Name Dose Route Start Last Admin Trade Name Freq PRN Reason Stop Dose Admin Acetaminophen 650 mg 11/07/21 17:50 11/09/21 22:42 Acetaminophen 32 5 Mg Tablet PO 650 mg Q6H PRN Administration Mild/Mod Pain Or Temp >/= 101 Albuterol/Ipratrop ium 3 ml 11/07/21 17:08 11/10/21 03:30 Ipratropium-Albu terol 3 Ml Neb INHALATION 3 ml Q6H PRN Administration SHORTNESS OF SHERITA TH Atorvastatin Calci um 20 mg 11/08/21 09:00 11/09/21 08:32 Atorvastatin 40 Mg Tablet PO 20 mg DAILY KAYLEY Administration Budesonide 0.5 mg 11/07/21 20:00 11/09/21 19:55 Budesonide 0.5 M g/2 Ml Neb INHALATION 0.5 mg BID.RESPIRATORY S CH Administration Metoprolol Succina te 25 mg 11/08/21 09:00 11/09/21 08:31 Metoprolol Succi kee Er (24 Hr) 25 Mg Tablet PO 25 mg DAILY KAYLEY Administration Ondansetron HCl 4 mg 11/07/21 17:08 11/08/21 03:19 Ondansetron 2 Mg /Ml Sdv 2 Ml IVP 4 mg Q6H PRN Administration NAUSEA AND VOMITI NG Pantoprazole Sodiu m 40 mg 11/08/21 09:00 11/09/21 08:[address] 40 Mg Tablet PO 40 mg DAILY KAYLEY Administration Senna/Docusate Sod ium 2 tab 11/09/21 18:00 11/09/21 18:08 Sennosides-Docus ate Tablet PO 2 tab BID KAYLEY Administration Sucralfate 1 gm 11/07/21 21:00 11/09/21 20:07 Sucralfate 1 Gm Tablet PO 1 gm QID KAYLEY Administration Tamsulosin HCl 0.4 mg 11/08/21 09:00 11/09/21 08:31 Tamsulosin 0.4 M g Capsule PO 0.4 mg DAILY KAYLEY Administration PFSH Anesthesia PFSH: Medical History Bloating BPH loc w urin obs/LUTS Colon polyp COPD (chronic obstructive pulmonary disease) with emphysema COVID-19 Gastritis and duodenitis GERD (gastroesophageal reflux disease) GERD with esophagitis Hyperlipidemia, mixed Screening PSA (prostate specific antigen) Surgical History H/O colonoscopy with polypectomy Family History Family/Other No problems noted. Mother , AT AGE 83 No problems noted. Father , AT AGE 67 No problems noted. Social History Second hand smoke exposure: No Smoking risk assessment/counseling performed?: No Alcohol intake: never Desire information about alcohol rehabilitation?: No Counseling given: No Desire information about substance/drug rehabilitation?: No Counseling given: No Adopted: No Caregiver/support person: No Lives independently: Yes Household members: none Housing: House Marital status: Number of children: 2 service: No Current occupational status: disabled Current occupational exposures/hazards: No Pets and animals: Yes Pets & animals: cat(s) History of recent travel: No Current gender identity: Male Data Anesthesia CBC & Chem 7: 11/10/21 02:24 11/10/21 02:24 Other Labs: Laboratory Results - last 48 hr 11/09/21 11/09/21 11/10/21 02:36 02:36 02:24 WBC 11.1 H 8.6 RBC 3.91 L 3.93 L Hgb 11.4 L 11.5 L Hct 36.3 L 36.7 L MCV 92.8 93.4 MCH 29.2 29.3 MCHC 31.4 31.3 RDW 14.5 14.4 Plt Count 362 334 MPV 10.4 10.4 Neut % (Auto) 74.4 72.8 Lymph % (Auto) 14.8 17.0 [place] % (Auto) 8.4 6.3 Eos % (Auto) 1.1 2.1 Baso % (Auto) 0.3 0.2 Neut # (Auto) 8.27 H 6.27 Lymph # (Auto) 1.6 1.5 [place] # (Auto) 0.9 0.5 Eos # (Auto) 0.1 0.2 Baso # (Auto) 0.0 0.0 Nucleated RBC % (auto) 0 0.2 Nucleated RBCs # 0.0 0.0 PT INR Sodium 140 Potassium 4.4 Chloride 104 Carbon Dioxide 25 Anion Gap 15.4 BUN 13 Creatinine 0.9 GFR Calculation 87.3 L Glucose 107 Calculated Osmolality 291 Calcium 8.7 11/10/21 11/10/21 02:24 02:24 WBC RBC Hgb Hct MCV MCH MCHC RDW Plt Count MPV Neut % (Auto) Lymph % (Auto) [place] % (Auto) Eos % (Auto) Baso % (Auto) Neut # (Auto) Lymph # (Auto) [place] # (Auto) Eos # (Auto) Baso # (Auto) Nucleated RBC % (auto) Nucleated RBCs # PT 13.80 INR 1.03 Sodium 139 Potassium 3.9 Chloride 104 Carbon Dioxide 24 Anion Gap 14.9 BUN 15 Creatinine 0.8 GFR Calculation 100.0 Glucose 97 Calculated Osmolality 289 Calcium 9.2 Cardiac Studies: Echocardiogram 10/22/21
--- NOTE | 2021-11-10 07:45 | PM.PN ---
Subjective Subjective: Interval history: Chest tube day #3. No complaints. Again, up in chair on rounds. Airleak is about the same as yesterday with no substantial change. While it has improved somewhat since initiation of the chest tube, it has not continued to dissipate as hoped. Vitals/I&O/Wt Last Vital Signs Temp 98.4 F 11/10/21 04:00 Pulse 76 11/10/21 04:00 Resp 20 H 11/10/21 04:00 BP 116/66 11/10/21 04:00 Pulse Ox 96 11/10/21 04:00 11/09/21 11/10/21 11/10/21 22:59 06:59 14:59 Intake Total 740 / 1220 Output Total 245 / 445 695 / 1140 Balance 495 / 775 -695 / 80 Physical Exam Chest: COMMONS NORMALS: normal inspection of the chest OTHER: Tube in good position. Resp: COMMON NORMALS: normal respiratory effort, No use of accessory muscles and clear to auscultation bilaterally EFFORT & INSPECTION: Yes able to speak in complete sentences AUSCULTATION: clear to auscultation bilaterally Data : 11/10/21 02:24 11/10/21 02:24 A&P Assessment and plan (1) Pneumothorax: Continued air leak despite thoracostomy tube treatment for 3 days. Plan: We will plan to proceed with thoracoscopy with mechanical and chemical pleurodesis around noon today. We will, of course, assess for bleb disease though there was no substantial evidence of this on admitting CT scan. Will plan for ICU stay immediately postop for adequate analgesia. Rationale for surgery again discussed with Mr. Polk, who states understanding and is in agreement. I would suspect that with a residual, though hopefully smaller postoperative air leak, we could then transition to a thoracic vent for continued management which might include outpatient care. Status: Acute Attestations Medical Necessity Statement*: Continued air leak status post thoracostomy tube placement for spontaneous pneumothorax Time Spent in Patient Care: less than 15 minutes Coding Level of Care Code Acute Medical Staff Services Coordinator for Renny Dao Diagnoses Pneumothorax J93.9
[2021-11-10] MEDS: budesonide 0.5 mg/2 mL Neb INHALATION ×2 (08:33→20:12)
[2021-11-10] MEDS: metoprolol succinate ER (24 HR) 25 mg Tablet PO (09:27)
--- NOTE | 2021-11-10 10:25 | PC.SOCIAL ---
IMM Update Pg. 2 of IMM updated and reviewed with patient, who verbalized understanding. Copy provided.
--- NOTE | 2021-11-10 10:45 | PC.NURSE ---
patient take off floor by preop RNs.
[2021-11-10] MEDS: ceFAZolin 1,000 mg SDV 2000 MG IRRIGATION (13:30)
--- NOTE | 2021-11-10 14:21 | PC.CHAP ---
Pastoral Care Encounter/Spiritual Assessment Type of Contact [] Declined clinical quality assurance associate visit [] Patient/Family/Request visit [] Outpatient visit [] Follow-up visit [] Physician referral [] Code/Alert [] Routine visit [] Staff referral [] Actively dying [] Patient sleeping [] Family support [] [] Out of room [] Palliative care [] [] Receiving care in room [] Pre-surgical visit [] Trauma [] Long length of stay [] ICU visit [] Other: Relational/Emotional Strength [] Patient feels connected with others/family/visitors/staff [] Distress [] Loneliness/isolation [] Abandonment Spirituality of Patient [] Person of [place] [] Attends Anglican of their [place] [] Believes in Prayer [] Reads Bible or Denominational materials [] There are Spiritual issues to be addressed Customs Compliance Specialist Interventions [] Prayer [] Active listening [] Non-anxious presence [] Spiritual/emotional support [] Crisis/trauma care [] Spiritual counseling [] Bereavement support [] Provided bereavement packet [] Provided Bible/devotional materials [] Provided toy/stuffed animal, coloring book to patient or family member [] Provided Communion [] Anointing/[place] [] Salvation [] Completed spiritual assessment [] Other: Impact on Illness or Injury [] Angry [] Fearful [] Anxious [] Often cries [] Exhaustion [] Unable to work [] Unable to attend mormonism [] Unable to walk/stand [] Unable to read [] Unable to drive [] Unable to eat/drink [] Unable to sleep [] Unable to be with family [] Patient intubated [] Other: Summary Patient discharged [place] [facility] [place] when [place] was taken to [place]. Time spent with patient
--- NOTE | 2021-11-10 14:49 | P.OP_ITS ---
Operative Report Date of procedure: November 10, 2021 Pre-op Diagnosis: Persistent air leak status post spontaneous pneumothorax Post-op diagnosis: same Procedure Done: Right thoracoscopy with right upper lobe apical resection Mechanical and chemical pleurodesis Specimens removed/disposition: Apical resection right upper lobe Surgeon: Jake Bowling Anesthesia: General Estimated blood loss (mL): 100 Complications: None Condition: stable Disposition: ICU Brief History: Mr. Polk is a very pleasant 55-year-old gentleman recently recovered from a COVID infection. He presented 3 days ago on November 07 to the emergency department with acute shortness of breath and was determined to have a large spontaneous right pneumothorax. He was treated with a 32 Faroese chest tube which was placed acutely by ER staff. He has been convalescing on the vargas with a chest tube to suction. A moderately large air leak improved after approximately 24 hours though has remained steady since that time. Initial CTA was negative for pulmonary embolism though he has been recently diagnosed and currently is on anticoagulation for this. There was generalized emphysematous lung disease though no substantial bulla formation. Given his persistent air leak, I have recommended thoracoscopy and appropriate measures because of the continued air leak. Details the risk of the procedure were carefully and frankly discussed. Proper consents have been reviewed and signed. Procedure: Mr. Polk was taken to the operating room and underwent general endotracheal anesthesia after appropriate invasive monitoring lines were placed. A thoracic epidural catheter had been placed preoperatively. Double-lumen endotracheal tube was placed and confirmed by bronchoscopy. Patient was then placed in the left lateral decubitus position over an axillary roll and protective padding. He was secured. Given his persistent air leak, we elected to proceed with 1 lung ventilation on the left side, at which time we removed his original chest tube and then sterilely prepped and draped. 3 thoracoscopic ports were placed. One in the posterior axillary line in the sixth intercostal space. Another anteriorly in the eighth intercostal space. Another more posteriorly in the fifth intercostal space. Camera was inserted for inspection. 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 There was no substantial pleural fluid. Initial thorascopic inspection revealed generalized anthracosis without evidence for metastatic disease. There appear to be evidence of old bullous disease, most prominent at the right upper lobe apex. With this area elevated, we elected to proceed with mechanical stapling and dividing of this region over buttressed strips. Specimen was then removed for subsequent pathologic examination. At completion, hemostasis was controlled with cautery. We next performed mechanical pleurodesis utilizing a Bovie scratch pad overall all exposed parietal and visceral surfaces. Following this, chemical pleurodesis was performed utilizing a slurry of talc, doxycycline, and D50. Having completed this, we then placed two 28 Faroese drains, one situated anteriorly and to the apex and the other posteriorly over the diaphragm. These were secured and connected to Pleur-evac suction. Ports were removed. Sponge and needle count was correct. Thoracoscopic ports were closed with 3-0 and 4-0 Vicryl suture. Sterile dressings were applied. Mr. Polk was returned to supine position where he was awakened and extubated. He was then taken to the ICU in stable condition. Chest x-ray is pending. I did corporate travel counselor with his sister at the completion of the procedure.
--- NOTE | 2021-11-10 15:13 | ANE.PACU2 ---
Inpatient post-anesthesia follow up: Vital signs: Temperature 98.7 F Pulse Rate 84 Respiratory Rate 18 Blood Pressure 138/85 Pulse Oximetry 98 Oxygen Delivery Me thod Room Air Oxygen Flow Rate 2 Fraction of Inspir ed Oxygen 70 Additional Comments: Taken to ICU, intubated on vent, VSS pain control with thoracic epidural.
--- NOTE | 2021-11-10 15:14 | ANES.PROC ---
Anesthesia Procedures Procedure/Date: 11/10/21 Epidural: Time Out Performed: Yes (11:15) Consents Signed: Procedure Consent Consent: requested by attending/covering physician and from patient Thoracic Level: other (T7-T8) Epidural position: sitting Epidural procedure: sterile prep of area, 1% lidocaine to numb the area, 18 g needle, negative for paresthesia passed, test dose given, 1.5% xylocaine 1:200k epi, placed PCEA, no systemic response, sterile dressing applied and 0.2% Ropiavacaine @ mls/hr (6) Additional Comments: Patient sitting. Time out. Sterile prep and drape usual fashion. LA T6-T7. Touhy introtoduced with stylet. First two attempts unable to engage ligament (soft tissues). Rather than advance Touhy further I moved from to T7-T8 interspace. LA wheel. Using Touhy w/ stylet, ligament engaged. Using THOR technique with air epidural spaced encounterd. Loss at 8, catheter threaded to 14 cm. Negative aspiration, negative test dose. Good block. Tolerated well.
--- NOTE | 2021-11-10 15:17 | ANES.PROC ---
Anesthesia Procedures Procedure/Date: 11/10/21 Arterial Line: Time Out Performed: Yes Consent: requested by attending/covering physician Size (Gauge): 20 Technique Used: guide wire technique Post-Procedure: dry sterile dressing placed Patient Tolerated Procedure: well Complications: none Site: right and radial Additional Comments: After induction of anesthesia and airway secured patient right arm prepared with sterile prep. Using US for real time visualization of target and real time visualization of needle entry and catheter advancement 20 g arterial line placed. First attempt, lateral to vessel. No arterial puncture. 2nd attempt successful. No complications.
[2021-11-10] MEDS: lactated ringers 1,000 ML 75 ML IV (15:21)
[2021-11-10] MEDS: sucralfate 1 gm Tablet PO ×2 (17:13→20:35)
[2021-11-10] MEDS: sennosides-docusate Tablet 2 TAB PO (17:13)
--- NOTE | 2021-11-10 18:34 | NUR.SHIFT ---
Shift Note Frequent safety and comfort rounds continue. Orders and/or nursing care completed as indicated. Patient monitored for response to intervention and treatment(s). Education provided includes[chest tube care ]. Patient and/or termite control representative understand . Will continue to monitor. evening meal service observer chief with good appitite noted
[2021-11-11] VITALS (10 sets, daily range): BP systolic 92–117; BP diastolic 55–67; PULSE 69–90; RESP 15–30; TEMP 36.9–37; O2SAT 92–100
[2021-11-11] MEDS: acetaminophen 325 mg Tablet 650 MG PO ×3 (03:28→18:38)
[2021-11-11] MEDS: lactated ringers 1,000 ML 75 ML IV (03:30)
[2021-11-11 04:15] LABS: Basophils % 0.2 %; Eosinophils # 0.1 10^3/uL (0.0-0.8); Eosinophils % 0.8 %; Hematocrit 32.3 % (42.0-52.0); Hemoglobin 10.2 g/dL (11.7-16.6); Lymphocytes # 1.5 10^3/uL (0.8-4.8); Lymphocytes % 15.4 %; Mean Corpuscular HGB Conc 31.6 g/dL (30.0-36.0); Mean Corpuscular Hemoglobin 28.8 pg (28.0-34.0); Mean Corpuscular Volume 91.2 fl (80-94); Mean Platelet Volume 10.5 fL (7.4-10.4); Monocytes # 0.7 10^3/uL (0.2-0.9); Neutrophils # 7.29 10^3/uL (1.8-7.7); Neutrophils % 75.2 %; Nucleated Red Blood Cells % 0 %; Platelet Count 308 10^3/cmm (130-400); Red Blood Count 3.54 10^6/uL (4.1-5.3); Red Cell Distribution Width 14.2 % (12.1-15.1); White Blood Count 9.7 10^3/uL (4.0-10.0)
[2021-11-11 04:30] LABS: Anion Gap 13.9 (5-19); Blood Urea Nitrogen 11 mg/dL (6-20); Calcium 7.9 mg/dL (8.5-10.5); Carbon Dioxide 22 mmol/L (22-29); Chloride 103 mmol/L (98-107); Glomerular Filtration Rate 139.4 mL/min (90-130); Glucose 91 mg/dL (65-115); Osmolality Calculated 279 mOsm/kg (285-295); Potassium 3.9 mmol/L (3.5-5.1); Sodium 135 mmol/L (136-145)
--- NOTE | 2021-11-11 07:00 | XRR_ITS ---
PROCEDURE INFORMATION: Exam: XR Chest Exam date and time: 11/11/2021 7:00 AM Age: 55 years old Clinical indication: Prior surgery; Surgery date: Post-operative (0-2 days); Surgery type: RT apical lung resection. ; Patient HX: F/u for RT apical lung resection and pneumothorax. Chest tube in place. ; Additional info: Ptx TECHNIQUE: Imaging protocol: XR of the chest. Views: 1 view. COMPARISON: CR XR chest 1V portable [id number] 11/10/2021 5:21 AM FINDINGS: Lungs: COPD, interstitial disease, and asymmetric basilar airspace disease (left greater than right). Pleural spaces: Right thoracostomy tubes, without significant residual pneumothorax. Heart/Mediastinum: No cardiomegaly. Bones/joints: Degenerative change. Soft tissues: Prominent subcutaneous emphysema. XR/XR chest 1V portable [id number] IMPRESSION: 1. No significant residual pneumothorax. 2. COPD, interstitial disease, and asymmetric basilar airspace disease (left greater than right).
[2021-11-11] MEDS: ipratropium-albuterol 3 mL Neb INHALATION ×2 (07:56→20:38)
[2021-11-11] MEDS: budesonide 0.5 mg/2 mL Neb INHALATION ×2 (07:56→20:38)
--- NOTE | 2021-11-11 08:00 | PM.MISC ---
Miscellaneous Note Purpose of Documentation: Thoracic epidural rounding Note: Pain: 0 Medication: 0.2% Ropivacaine at 6 ml/hour Site: Dressing intact, dry, no erythema tenderness or swelling Anticoagulation: None ordered. SubQ heparin, prophylactic low dose BID okay to use. If low dose BID subQ prophylactic heparin is used please wait 6 hours after last dose before removing catheter. Exam: Moves toes, legs, no complaints no apparent complications Plan: Continue thoracic epidural
--- NOTE | 2021-11-11 08:18 | PC.NURSE ---
noted small air leak in chest tube this am and small amt subqu emphysema in right upper chest area DR here aware good appetite noted this am
[2021-11-11] MEDS: sennosides-docusate Tablet 2 TAB PO ×2 (08:24→17:02)
[2021-11-11] MEDS: atorvastatin 40 mg Tablet 20 MG PO (08:24)
[2021-11-11] MEDS: sucralfate 1 gm Tablet PO ×4 (08:24→21:01)
[2021-11-11] MEDS: pantoprazole DR 40 mg Tablet PO (08:24)
[2021-11-11] MEDS: metoprolol succinate ER (24 HR) 25 mg Tablet PO (08:25)
[2021-11-11] MEDS: tamsulosin 0.4 mg Capsule PO (08:25)
--- NOTE | 2021-11-11 10:03 | PM.PN ---
Subjective Subjective: Interval history: Postop day #1 status post right thoracoscopy with apical right upper lobe lung resection and pleurodesis. Postop discomfort appears to be under good control. Pulling about 500 cc 1000 cc on incentive spirometry. There is small air leak though this is improved from preoperative exam. Chest x-ray reveals good chest tubes placement and no pneumothorax. Subcutaneous emphysema is improving radiographically. Surgical dressings are clean and dry. Tube output 535 cc since surgery. This would be expected following mechanical and chemical pleurodesis. Vitals/I&O/Wt Last Vital Signs Temp 98.4 F 11/11/21 04:00 Pulse 83 11/11/21 08:00 Resp 19 H 11/11/21 08:00 BP 113/62 11/11/21 08:00 Pulse Ox 100 11/11/21 08:00 11/10/21 11/11/21 11/11/21 22:59 06:59 14:59 Intake Total 451 / 611 1161.25 / 1772.25 200 / 200 Output Total 1075 / 1275 1660 / 2935 Balance -624 / -664 -498.75 / -1162.75 200 / 200 Weight last 48 hrs Weight 160 lb Physical Exam Chest: COMMONS NORMALS: normal inspection of the chest OTHER: Chest wall is stable. Less subcutaneous emphysema. Chest tubes are in good position. Surgical dressings are dry. Resp: COMMON NORMALS: normal respiratory effort, No retractions and No use of accessory muscles EFFORT & INSPECTION: Yes able to speak in complete sentences OTHER: Improving aeration Cardio: COMMON NORMALS: S1 normal heart sound present, No murmurs present (Cardio) and No rub (Cardio) RHYTHM: abnormal rhythm irregularly irregular HEART SOUNDS: S1 normal heart sound present Extremity: COMMON NORMALS: no clubbing, cyanosis or edema Urinary Catheter Management^: Mireles: Cath Placed During This Visit: yes Reason for Continuing Indwelling Catheter: Accurate Measurement of Urinary Output in Critically Ill Patients Urinary Catheter Date of Insertion: 11/10/21 Urinary Catheter Time of Insertion: 12:30 Data : 11/11/21 03:18 11/11/21 03:18 A&P Assessment and plan (1) Pneumothorax, spontaneous, tension: Postop day #1 status post right thoracoscopy with apical resection and pleurodesis. Decreasing air leak. Plan: Continue chest tubes to suction. DC Mireles catheter. Saline lock. May transfer to vargas. Chest x-ray in a.m. Greatly appreciate expertise and oversight of our hospitalist colleagues. 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
--- NOTE | 2021-11-11 12:23 | PM.PN ---
Subjective Subjective: Interval history: Air leak is noted, chest tube with 100 mL an 125 mL drainage, bloody discharge Afebrile White count 9.7 Epidural seems to be controlling his pain for now No signs of back pain, leg pain, yesterday he noticed numbness in his feet which has improved today Dressing is not soaked Mireles catheter draining yellow-colored urine On 2 L nasal cannula He was watching television monitor to room, in good spirits no overnight event Vitals/I&O/Wt Last Vital Signs Temp 98.4 F 11/11/21 04:00 Pulse 90 11/11/21 12:00 Resp 28 H 11/11/21 12:00 BP 117/67 11/11/21 12:00 Pulse Ox 96 11/11/21 12:00 11/10/21 11/11/21 11/11/21 22:59 06:59 14:59 Intake Total 451 / 611 1161.25 / 1772.25 450 / 450 Output Total 1075 / 1275 1660 / 2935 Balance -624 / -664 -498.75 / -1162.75 450 / 450 Weight last 48 hrs Weight 72.575 kg Physical Exam Narrative: EXAM NARRATIVE: Patient was sitting comfortably in his bed on 2 L nasal cannula S1, S2 Soft abdomen. Present 2 L nasal cannula Nonfocal exam Anterior and posterior chest tube to suction Air leak is noted with tidling Bilateral lower extremity no vascular compromise, palpable dorsalis pedis pulses bilaterally, no signs of ischemia Nonfocal neuro exam Edema, pleural Epidural dressing in place without any signs of active drainage or soaking, no back pain Urinary Catheter Management^: Mireles: Cath Placed During This Visit: yes Reason for Continuing Indwelling Catheter: Accurate Measurement of Urinary Output in Critically Ill Patients Urinary Catheter Date of Insertion: 11/10/21 Urinary Catheter Time of Insertion: 12:30 Data : 11/11/21 03:18 11/11/21 03:18 A&P Assessment and plan (1) Pneumothorax, spontaneous, tension: Status: Acute (2) Pneumothorax: Status: Acute (3) Low serum iron: Status: Acute (4) Pulmonary embolism: Status: Acute (5) BPH loc w urin obs/LUTS: Status: Chronic (6) Post covid-19 condition, unspecified: Status: Acute Additional A&P Information Patient suffered from COVID-19 22 days ago Postop day 1 Status post right thoracoscopy with right upper lobe apical resection, pleurodesis Airleak is noted, please see cardiothoracic note for further detail Continue chest tube to suction 100 mL and 125 mL from chest tube overnight, total around 530 cc since surgery Currently doing well on 2 L nasal cannula Continues incentive spirometer Good bilateral breath sounds, crepitation noted right anterior chest wall Mireles catheter to be removed Out of bed to chair patient can be transferred out of ICU as cleared by cardiothoracic COPD without acute exacerbation Type II TX Full code Cardiac diet Attestations Medical Necessity Statement*: Transfer out of ICU Time Spent in Patient Care: 16 - 35 minutes Procedures Arterial Line Size (Gauge): 20 Coding Level of Care Code Acute Health Education Aide for Chg Fwd Diagnoses Pneumothorax, spontaneous, tension J93.0 Pneumothorax J93.9 Low serum iron E61.1 Pulmonary embolism I26.99 BPH loc w urin obs/LUTS N40.1 Post covid-19 condition, unspecified U09.9
--- NOTE | 2021-11-11 15:02 | PC.NURSE ---
vernell out up in chair at this time o2 off family here to visit at this time
--- NOTE | 2021-11-11 18:15 | PM.MISC ---
Miscellaneous Note Purpose of Documentation: Mr. Polk is doing well this evening. Mireles catheter had to be replaced secondary to urinary retention. Epidural catheter remains in place and appears to be working well. He is continue to use incentive spirometer. Airleak is small but still present. I will plan to leave chest tubes to suction overnight and consider transitioning to waterseal tomorrow. Staffing has now improved on second floor and he will be transferred to the medical/surgical vargas.
[2021-11-12] VITALS (15 sets, daily range): BP systolic 110–142; BP diastolic 65–89; PULSE 85–103; RESP 16–24; TEMP 36.3–38; O2SAT 93–98
[2021-11-12] MEDS: oxyCODONE 5 mg IR Tab/Cap PO ×3 (01:12→20:14)
--- NOTE | 2021-11-12 05:36 | PC.NURSE ---
SHIFT SUMMARY Pt was received to floor from ICU at shift change last pm. Sat in chair for around 3 hours then has been in bed resting rest of the night. Is pleasant. Has some pain in right chest/ribcage area but only wanted one po OXYIR tonight. Has epidural in place with Ropivacaine cont at 6ml/hr rate. Have enc pt to use the prn dose available when he needs it. X2 chest tubes to right side to sx. Air leak present and crepitus to right upper chest area. Had 250ml serous drainage from the anterior tube and 170ml from the medial axillary tube. Mireles in place with good urine output. Has X3 PIIDS intact. Came up on room air and sats were good. Wanted to wear the oxygen at 2l per NC while sleeping.
--- NOTE | 2021-11-12 06:00 | XRR_ITS ---
PROCEDURE INFORMATION: Exam: XR Chest Exam date and time: 11/12/2021 6:00 AM Age: 55 years old Clinical indication: Device placement; Chest tube; Prior surgery; Additional info: Pod #2 status post right thoracoscopy and pleurodesis TECHNIQUE: Imaging protocol: XR of the chest. Views: 1 view. COMPARISON: CR (CHEST, ) 11/11/2021 5:27 AM FINDINGS: Tubes, catheters and devices: Chest tubes remain on the right. Lungs: Pleural thickening or fluid laterally in the right chest with more focal subpleural interstitial density right lower lung laterally. Interstitial opacities of lower lungs. Pleural spaces: No dominant pneumothorax. Pleural thickening or small component of effusion in the lower left chest. Heart/Mediastinum: Cardiomediastinal silhouette is similar. Bones/joints: Unremarkable. Soft tissues: Persistent soft tissue emphysema right chest wall. XR/XR chest 1V portable [id number] IMPRESSION: 1. Diffuse right chest pleural thickening or effusion. 2. Parenchymal opacities of lower lungs are similar.
[2021-11-12 06:58] LABS: Basophils % 0.2 %; Eosinophils # 0.3 10^3/uL (0.0-0.8); Eosinophils % 2.4 %; Hematocrit 31.7 % (42.0-52.0); Hemoglobin 10.1 g/dL (11.7-16.6); Lymphocytes # 1.4 10^3/uL (0.8-4.8); Lymphocytes % 12.3 %; Mean Corpuscular HGB Conc 31.9 g/dL (30.0-36.0); Mean Corpuscular Hemoglobin 29.4 pg (28.0-34.0); Mean Corpuscular Volume 92.2 fl (80-94); Mean Platelet Volume 10.4 fL (7.4-10.4); Monocytes % 8.7 %; Neutrophils # 8.38 10^3/uL (1.8-7.7); Neutrophils % 74.4 %; Nucleated Red Blood Cells % 0 %; Platelet Count 293 10^3/cmm (130-400); Red Blood Count 3.44 10^6/uL (4.1-5.3); Red Cell Distribution Width 14.4 % (12.1-15.1); White Blood Count 11.3 10^3/uL (4.0-10.0)
--- NOTE | 2021-11-12 07:22 | PC.NURSE ---
PATIENT HAS CREPITUS ALONG RIGHT ANTERIOR CHEST AND RIGHT BACK.
[2021-11-12 07:36] LABS: Anion Gap 15.5 (5-19); Blood Urea Nitrogen 11 mg/dL (6-20); Calcium 7.8 mg/dL (8.5-10.5); Carbon Dioxide 22 mmol/L (22-29); Chloride 101 mmol/L (98-107); Glomerular Filtration Rate 139.4 mL/min (90-130); Glucose 88 mg/dL (65-115); Osmolality Calculated 279 mOsm/kg (285-295); Potassium 3.5 mmol/L (3.5-5.1); Sodium 135 mmol/L (136-145)
[2021-11-12] MEDS: budesonide 0.5 mg/2 mL Neb INHALATION ×2 (07:39→20:01)
[2021-11-12] MEDS: sennosides-docusate Tablet 2 TAB PO ×2 (08:19→17:06)
[2021-11-12] MEDS: docusate sodium 100 mg Capsule PO (08:19)
[2021-11-12] MEDS: pantoprazole DR 40 mg Tablet PO (08:19)
[2021-11-12] MEDS: tamsulosin 0.4 mg Capsule PO (08:19)
[2021-11-12] MEDS: atorvastatin 40 mg Tablet 20 MG PO (08:19)
[2021-11-12] MEDS: sucralfate 1 gm Tablet PO ×4 (08:19→20:14)
[2021-11-12] MEDS: metoprolol succinate ER (24 HR) 25 mg Tablet PO (08:19)
--- NOTE | 2021-11-12 08:37 | P.MISC_ITS ---
Miscellaneous Note Note: POD: 2 Pain: 0. Overnight did have some pain requiring use of PCEA. Medication: 0.2% Ropivacaine at 6 ml/hour Site: Dressing intact, dry, no erythema tenderness or swelling Anticoagulation: None ordered. SubQ heparin, prophylactic low dose BID okay to use. If low dose BID subQ prophylactic heparin is used please wait 6 hours after last dose before removing catheter. Exam: Moves toes, legs, no complaints. Up to chair eating with vigor. Chest tube to suction. Per bedside RN able to walk. Spoke with TELETYPESETTER MONITOR and patient's matt was removed, however he was unable to void so the urinary catheter was replaced. Plan: Continue thoracic epidural
--- NOTE | 2021-11-12 09:44 | PM.PN ---
Subjective Subjective: Interval history: Day #2 status post right thoracoscopy with apical resection and pleurodesis. Up in chair on rounds. Pulling 1000 cc on incentive spirometer. Good, clear, effective cough. No air leak noted on Pleur-evac. Surgical dressing is dry. Chest x-ray reviewed. Patchy infiltrate toward the base. Pleural thickening as expected from pleurodesis. No obvious pneumothorax. Chest tubes are in good position. Vitals/I&O/Wt Last Vital Signs Temp 97.3 F L 11/12/21 07:18 Pulse 88 11/12/21 07:43 Resp 18 11/12/21 07:43 BP 110/65 11/12/21 07:18 Pulse Ox 95 11/12/21 07:43 11/11/21 11/12/21 11/12/21 22:59 06:59 14:59 Intake Total 1450 / 1900 360 / 2260 360 / 360 Output Total 1570 / 3370 Balance 1450 / 100 -1210 / -1110 360 / 360 Weight last 48 hrs Weight 162 lb 1.6 oz Weight 160 lb Physical Exam Chest: COMMONS NORMALS: normal inspection of the chest and normal palpation of entire chest wall (No crepitance) OTHER: Chest tubes in good position. Dressings dry. Resp: COMMON NORMALS: normal respiratory effort, No retractions, No use of accessory muscles, clear to auscultation bilaterally and percussion normal EFFORT & INSPECTION: Yes able to speak in complete sentences and Yes symmetric chest movement AUSCULTATION: clear to auscultation bilaterally PERCUSSION: percussion normal OTHER: 1000 cc on incentive spirometer. Cardio: COMMON NORMALS: regular rate, regular rhythm, S1 normal heart sound present, No gallops present (Cardio) and No rub (Cardio) RATE: regular rate RHYTHM: regular rhythm HEART SOUNDS: S1 normal heart sound present Extremity: COMMON NORMALS: no clubbing, cyanosis or edema Urinary Catheter Management^: Mireles: Cath Placed During This Visit: yes, but has since been removed by the nurse Reason for Continuing Indwelling Catheter: Acute Urinary Retention or Obstruction Urinary Catheter Date of Insertion: 11/10/21 Urinary Catheter Time of Insertion: 17:53 Date Urinary Catheter Removed: 11/11/21 Time Urinary Catheter Discontinued: 12:39 Data : 11/12/21 05:42 01/09/22 05:42 A&P Assessment and plan (1) Pneumothorax, spontaneous, tension: Postop day #2 status post right thoracoscopy with apical resection and pleurodesis. Airleak resolved. Plan: Chest tube to waterseal. DC epidural catheter. DC Mireles at 6 PM. Chest x-ray in a.m. If remains stable, will discontinue chest tubes and consider discharge tomorrow afternoon. Appreciate assistance and expertise of our hospitalist colleagues. Status: Acute Attestations Medical Necessity Statement*: Status post thoracoscopy and pleurodesis due to persistent air leak status post spontaneous pneumothorax Time Spent in Patient Care: 16 - 35 minutes Procedures Arterial Line Size (Gauge): 20 Coding Level of Care Code Acute Special Education Professor for [facility] Diagnoses Pneumothorax, spontaneous, tension J93.0
--- NOTE | 2021-11-12 10:08 | PC.NURSE ---
THIS NURSE DISCONTINUED EPIDURAL CATHETER PER DR. EVERETT AND ANESTHESIA. CATHETER TIP INTACT. PATIENT'S DRESSINGS CHANGED. UP IN CHAIR. PAIN CONTROLLED.
[2021-11-12] MEDS: acetaminophen 325 mg Tablet 650 MG PO ×2 (11:03→17:07)
--- NOTE | 2021-11-12 11:54 | PM.PN ---
Subjective Subjective: Interval history: Chest tube to waterseal today as per Dr. Bowling's recommendation he is planning to discontinue epidural catheter today and after few hours Mireles catheter, patient returned urine yesterday required Mireles catheter placement He is feeling comfortable no overnight events, is happy with his progress He is enthusiastic to go home tomorrow, plan to discontinue chest tube tomorrow Vitals/I&O/Wt Last Vital Signs Temp 98.1 F 11/12/21 10:54 Pulse 89 11/12/21 10:54 Resp 18 11/12/21 10:54 BP 114/72 11/12/21 10:54 Pulse Ox 96 11/12/21 10:54 11/11/21 11/12/21 11/12/21 22:59 06:59 14:59 Intake Total 1450 / 1900 360 / 2260 360 / 360 Output Total 1570 / 3370 Balance 1450 / 100 -1210 / -1110 360 / 360 Weight last 48 hrs Weight 73.527 kg Weight 72.575 kg Physical Exam Narrative: EXAM NARRATIVE: Patient was resting comfortably in a recliner Saturating well on 2 L nasal cannula Bilateral breath sounds Chest tube to waterseal, suction has been discontinued Mireles catheter Draining dilute urine Abdomen soft bowel sounds present Patient looks euvolemic In good spirits Nonfocal neuro exam Urinary Catheter Management^: Mireles: Cath Placed During This Visit: yes, but has since been removed by the nurse Reason for Continuing Indwelling Catheter: Acute Urinary Retention or Obstruction Urinary Catheter Date of Insertion: 11/10/21 Urinary Catheter Time of Insertion: 17:53 Date Urinary Catheter Removed: 11/11/21 Time Urinary Catheter Discontinued: 12:39 Data : 11/12/21 05:42 11/12/21 05:42 A&P Assessment and plan (1) Pneumothorax, spontaneous, tension: Status: Acute (2) Post covid-19 condition, unspecified: Status: Acute (3) Pneumothorax: Status: Acute (4) COPD (chronic obstructive pulmonary disease): Status: Chronic (5) Pulmonary embolism: Status: Acute Additional A&P Information Postop day 2 Right thorascopic apical resection pleurodesis Please see Dr. Bowling's note for further details Chest tube to waterseal DC epidural catheter Follow-up for catheter later today Plan to discharge him home tomorrow after removal of chest tube Is doing well on 2 L nasal cannula Carries history of pulmonary embolism, will resume his Eliquis at the time of discharge Mireles cath was placed as he was retaining urine with epidural, plan to discontinue Mireles catheter Will add Levaquin, empirical coverage Attestations Medical Necessity Statement*: Plan to discharge tomorrow after removal of chest tube Time Spent in Patient Care: less than 15 minutes Procedures Arterial Line Size (Gauge): 20 Coding Level of Care Code Acute Neighborhood Coordinator for g Fwd Diagnoses Pneumothorax, spontaneous, tension J93.0 Post covid-19 condition, unspecified U09.9 Pneumothorax J93.9 COPD (chronic obstructive pulmonary disease) J44.9 Pulmonary embolism I26.99
[2021-11-12] MEDS: levoFLOXacin 750 mg Tablet PO (12:36)
--- NOTE | 2021-11-12 15:23 | PC.SOCIAL ---
IMM UPDATED IMM initialed and dated and copy given to patient
[2021-11-12] MEDS: bisacodyl 5 mg Tablet PO (16:03)
[2021-11-12] MEDS: lactulose oral liq 20 gm/30 mL UDC PO (17:06)
--- NOTE | 2021-11-12 19:37 | PC.NURSE ---
i reported high pulse 103 to nurse
--- NOTE | 2021-11-12 19:43 | PC.NURSE ---
PATIENT HAS DONE WELL TODAY. THIS NURSE REMOVED EPIDURAL CATHETER THIS MORNING AROUND 0930. CATHETER TIP INTACT. PATIENT'S LEWIS CATHETER REMOVED AT 1800. HE WALKED WITH ASSISTANCE AROUND THE NURSES STATION AND DID WELL. PAIN CONTROLLED. PATIENT HAD LARGE BOWEL MOVEMENT. GOOD INTAKE AND OUTPUT. ON 2L NC. UP IN CHAIR MOST OF THE DAY. NO COMPLAINTS AT THIS TIME.
[2021-11-12] MEDS: ipratropium-albuterol 3 mL Neb INHALATION (20:01)
--- NOTE | 2021-11-12 20:04 | PC.NURSE ---
ROUNDING NOTE Sitting up in chair. Says he feels better and has been up alot today. Ambulated in [place]. Says some weakness and SOB with exertion and coughing. O2 in place at 2l per NC. Has occ prod cough. Denies pain. X2 chest tubes to right chest intact and to water seal only. No air leak tonight. Has very minimal crepitus felt to right upper chest area. Bandaid to previous epidural site medial back. Mireles was removed by day shift at 1800. Will monitor for urinary retention. No void as of yet. Is hoping to go home soon.
[2021-11-13] VITALS (10 sets, daily range): BP systolic 122–137; BP diastolic 64–80; PULSE 72–115; RESP 18–22; TEMP 36.5–36.9; O2SAT 87–99
[2021-11-13] MEDS: acetaminophen 325 mg Tablet 650 MG PO (00:52)
[2021-11-13 03:22] LABS: Basophils # 0.1 10^3/uL (0.0-0.1); Basophils % 0.4 %; Eosinophils # 0.3 10^3/uL (0.0-0.8); Eosinophils % 2.8 %; Hematocrit 32.4 % (42.0-52.0); Hemoglobin 10.3 g/dL (11.7-16.6); Lymphocytes # 1.3 10^3/uL (0.8-4.8); Lymphocytes % 11.1 %; Mean Corpuscular HGB Conc 31.8 g/dL (30.0-36.0); Mean Corpuscular Hemoglobin 28.7 pg (28.0-34.0); Mean Corpuscular Volume 90.3 fl (80-94); Mean Platelet Volume 10.2 fL (7.4-10.4); Monocytes # 1.1 10^3/uL (0.2-0.9); Monocytes % 8.9 %; Neutrophils # 8.62 10^3/uL (1.8-7.7); Neutrophils % 72.6 %; Nucleated Red Blood Cells % 0 %; Platelet Count 293 10^3/cmm (130-400); Red Blood Count 3.59 10^6/uL (4.1-5.3); Red Cell Distribution Width 14.2 % (12.1-15.1); White Blood Count 11.9 10^3/uL (4.0-10.0)
[2021-11-13] MEDS: oxyCODONE 5 mg IR Tab/Cap PO (04:21)
[2021-11-13] MEDS: levoFLOXacin 750 mg Tablet PO (05:08)
--- NOTE | 2021-11-13 05:46 | PC.NURSE ---
SHIFT SUMMARY Has had a good night. Was up in chair all evening. Went to bed around 2300. No distress. Has SOB with coughing and exertion but resolves quickly. Has c/o pain in right chest with coughing and moving around but rates it pretty minimal. Has received po OXYIR X2 and po Tylenol X1 for this tonight. Chest tubes to right anterior and medial axillary area remain intact and to water seal only. No air leak observed tonight and small amts serous fluid drainage. Very minimal crepetis to upper right ant chest is felt. Has been able to urinate well tonight with standing beside bed. 850ml urine output. Taking po fluids well. Is very pleasant.
--- NOTE | 2021-11-13 06:00 | XR_ITS ---
WS: [id number] XR chest 1V portable [id number] REASON FOR EXAM: chest tubes to water seal p 24 hours FINDINGS: 2 right chest tubes remain in place as on the previous examination of 11/12/2021. There is a crescent-shaped hyperlucency in the mid right lung field which most likely represents a sm all amount of air trapped within the right interlobar fissure. No other finding of pneumothorax. Previously noted lower lung field opacities unchanged. Decreasing right chest wall subcutaneous emphysema. No other interval change or new finding. XR/XR chest 1V portable [id number] IMPRESSION: Small amount of air trapped in the right interlobar fissure.
--- NOTE | 2021-11-13 07:43 | P.PN_ITS ---
Subjective Subjective: Interval history: Postop day #3 status post right thoracoscopy with apical lung resection along with pleurodesis. Airleak dissipated yesterday. Again, there is no airleak this morning. He has been on waterseal overnight. Chest x-ray is stable with pleural reaction consistent with his pleurodesis. I elected to remove the chest tubes this morning. All dressings were changed. Vitals/I&O/Wt Last Vital Signs Temp 97.7 F 11/13/21 04:00 Pulse 72 11/13/21 06:00 Resp 20 H 11/13/21 04:21 BP 126/80 11/13/21 04:00 Pulse Ox 97 11/13/21 04:00 11/12/21 11/13/21 11/13/21 22:59 06:59 14:59 Intake Total 600 / 1200 480 / 1680 Output Total 1030 / 1030 890 / 1920 Balance -430 / 170 -410 / -240 Weight last 48 hrs Weight 163 lb Weight 162 lb 1.6 oz Physical Exam Chest: OTHER: Surgical incision sites are clean and dry. Chest wall is stable. I cannot palpate any crepitance. Resp: COMMON NORMALS: normal respiratory effort, No retractions, No use of accessory muscles and percussion normal EFFORT & INSPECTION: Yes able to speak in complete sentences PERCUSSION: percussion normal OTHER: Mild decrease in breath sounds in the left base laterally and posteriorly which would be consistent with a chest x-ray. He will need continued aggressive pulmonary toilet. Urinary Catheter Management^: Mireles: Cath Placed During This Visit: yes, but has since been removed by the nurse Reason for Continuing Indwelling Catheter: Decision to DC Catheter Urinary Catheter Date of Insertion: 11/10/21 Urinary Catheter Time of Insertion: 17:53 Date Urinary Catheter Removed: 11/12/21 Time Urinary Catheter Discontinued: 18:06 Data : 11/13/21 03:05 11/12/21 05:42 A&P Assessment and plan (1) Pneumothorax, spontaneous, tension: Postop day #3 status post right thoracoscopy with apical resection and pleurodesis. Chest tubes have been discontinued. Plan: We will obtain a chest x-ray at 11 AM. I will assess midday. If he continues to do well we will plan for discharge later this afternoon. Greatly appreciate the oversight and expertise of our hospitalist colleagues. Status: Acute Attestations Medical Necessity Statement*: Spontaneous pneumothorax status post thoracoscopy and pleurodesis Time Spent in Patient Care: 16 - 35 minutes Procedures Arterial Line Size (Gauge): 20 Coding Level of Care Code Acute Rn Gastroenterology for [place] Fwd Diagnoses Pneumothorax, spontaneous, tension J93.0
[2021-11-13] MEDS: atorvastatin 40 mg Tablet 20 MG PO (08:55)
[2021-11-13] MEDS: tamsulosin 0.4 mg Capsule PO (08:55)
[2021-11-13] MEDS: sennosides-docusate Tablet 2 TAB PO (08:56)
[2021-11-13] MEDS: sucralfate 1 gm Tablet PO ×2 (08:56→12:06)
[2021-11-13] MEDS: pantoprazole DR 40 mg Tablet PO (08:56)
[2021-11-13] MEDS: metoprolol succinate ER (24 HR) 25 mg Tablet PO (08:56)
[2021-11-13] MEDS: ipratropium-albuterol 3 mL Neb INHALATION (09:00)
[2021-11-13] MEDS: budesonide 0.5 mg/2 mL Neb INHALATION (09:00)
[2021-11-13 10:31] LABS: Alveolar-Arterial Oxygen Gradi 14.8 mmHg (5-10); Arterial Blood Gas Hematocrit 37.6 % (42-52); Base Excess ABG -0.6 mmol/L (-2.0-2.0); Blood Gas Operator Identificat ED; Blood Gas Sample Site Brachial, left; Blood Gas Sample Type Arterial; Carboxyhemoglobin 0.9 %THgb (0.4-20.1); HCO3 ABG 24.1 mmol/L (22-26); HGB O2 Sat 92.7 % (95-100); Ionized Calcium Level - ABG 1.2 mmol/L (1.1-1.4); Methemoglobin 0.9 % (0.4-1.5); Oxygen Device NC; Oxygen Saturation ABG 94.4; PO2 ABG 66.7 mmHg (80.0-100.0); Potassium Level - ABG 3.9 mmol/L (3.5-5.0); Total Hemoglobin 12.3 g/dL (14-18)
--- NOTE | 2021-11-13 11:00 | XR_ITS ---
WS: [id number] XR chest 1V portable [id number] REASON FOR EXAM: chest tubes removed FINDINGS: Postoperative changes in the right hemithorax with pleural thickening and flattening of the hemidiaph ragm. Multiple small karyn overlying upper midlung field. The right chest tubes have been removed. No right pneumothorax is identified. No other interval change or new finding. XR/XR chest 1V portable [id number] IMPRESSION: Chest tube removal with no pneumothorax identified.
[2021-11-13] MEDS: amoxicillin-clav 500-125 mg Tablet 1 TAB PO (12:06)
--- NOTE | 2021-11-13 12:17 | P.DS_ITS ---
Discharge Providers Date of Admission: 11/07/21 12:17 Date of Discharge: November 13, 2021 Attending Provider at Admission: Akash Zapata MD Attending Provider at Discharge: Cyn Beck MD Primary Care Provider: TJ Espinoza Diagnoses at Discharge Discharge Diagnosis (1) Pneumothorax, spontaneous, tension: Status: Acute Reason for Visit Reason for Visit: SOB, POSSIBLE PE Hospital Course Hospital Course Mr. Polk is a pleasant 55-year-old gentleman with COPD and recent recovery from COVID infection. He presented to the emergency department on November 07 with acute shortness of breath and was found to have a large right pneumothorax for which a 32 Thai chest tube was placed by our ER staff. This resolved his pneumothorax though, unfortunately, he had a persistent air leak despite chest tube management with active suction. Therefore, on November 10 he was taken to the operating room where he underwent right thoracoscopy with resection of the apex of the right upper lobe as well as mechanical/chemical pleurodesis. Postoperatively, he maintained an air leak for about 24 hours which then completely resolved. Chest tube drainage continued to slow over the next 36 hours and subsequently with chest tube to waterseal he maintains a complete lung expansion with opposed pleurodesis changes. Chest tubes were discontinued this morning. Postoperative chest tube removal x-ray at 11 AM this morning reveals the right lung remains expanded with pleural thickening consistent with pleurodesis. Incisions are clean and dry. He is pulling about 1000 cc on incentive spirometer. He does have a slightly productive cough of clear sputum. He will be discharged to home today with home health services. He will continue oxygen at 2 L nasal cannula. He already has oxygen at home for his COPD. I will place him on Levaquin 7 and 50 mg daily for 3 days and Augmentin 500 mg 3 times a day for the next 5 days. He will be scheduled to follow-up in our clinic in 1 week. Discharge instructions have been reviewed with Mr. Polk and his sister. At the time of discharge, he is in stable condition. Physical Exam Chest: OTHER: Chest wall is stable. Incisions are clean and dry. Drain sites are well approximated. Resp: COMMON NORMALS: normal respiratory effort, No retractions, No use of accessory muscles and percussion normal EFFORT & INSPECTION: Yes able to speak in complete sentences and Yes symmetric chest movement PERCUSSION: percussion normal OTHER: Slight decreased breath sounds on the right though these are continuing to improve 11 AM chest x-ray reveals a right lung remains expanded with pleural thickening consistent with the recent pleurodesis. Cardio: COMMON NORMALS: regular rate and S1 normal heart sound present RATE: regular rate RHYTHM: abnormal rhythm irregularly irregular (A. fib. He will be resuming his Eliquis) HEART SOUNDS: S1 normal heart sound present Extremity: COMMON NORMALS: no clubbing, cyanosis or edema Urinary Catheter Management^: Mireles: Cath Placed During This Visit: yes, but has since been removed by the nurse Reason for Continuing Indwelling Catheter: Decision to DC Catheter Urinary Catheter Date of Insertion: 11/10/21 Urinary Catheter Time of Insertion: 17:53 Date Urinary Catheter Removed: 11/12/21 Time Urinary Catheter Discontinued: 18:06 Discharge Data Data Completed and Pending: Completed Studies During Hospitalization Category Date Time Status CT angio chest PE protcl [id number] Stat Cat Scan 11/07/21 08:20 Completed XR chest 1V bushra ble [id number] Routine Exams 11/08/21 06:00 Completed XR chest 1V bushra ble [id number] Routine Exams 11/09/21 06:00 Completed XR chest 1V bushra ble [id number] Routine Exams 11/10/21 06:00 Completed XR chest 1V bushra ble [id number] Routine Exams 11/11/21 07:00 Completed XR chest 1V bushra ble [id number] Routine Exams 11/12/21 06:00 Completed XR chest 1V bushra ble [id number] Routine Exams 11/13/21 06:00 Completed XR chest 1V bushra ble [id number] Routine Exams 11/13/21 11:00 Completed XR chest 1V bushra ble [id number] Stat Exams 11/07/21 08:20 Completed XR chest 1V bushra ble [id number] Stat Exams 11/07/21 09:10 Completed XR chest 1V bushra ble [id number] Stat Exams 11/07/21 12:02 Completed Pending at discharge Category Date Time Status ES surgery / GI i mages Routine Exams 11/10/21 08:26 Taken Leukocyte Reduced RBC Routine Lab 11/10/21 07:42 Results Type and Screen A M LABS Lab 11/10/21 07:42 Results Pathology: Surgic al [PTH] Routine Pth 11/10/21 15:08 Received Labs from last 24 hours 11/13/21 11/10/2122 03:05 07:42 10:30 WBC 11.9 H RBC 3.59 L Hgb 10.3 L Hct 32.4 L MCV 90.3 MCH 28.7 MCHC 31.8 RDW 14.2 Plt Count 293 MPV 10.2 Neut % (Auto) 72.6 Lymph % (Auto) 11.1 [place] % (Auto) 8.9 Eos % (Auto) 2.8 Baso % (Auto) 0.4 Neut # (Auto) 8.62 H Lymph # (Auto) 1.3 [place] # (Auto) 1.1 H Eos # (Auto) 0.3 Baso # (Auto) 0.1 Nucleated RBC % (a uto) 0 Nucleated RBCs # 0.0 Specimen Type Arterial Sample Site Brachial, left ABG pH 7.40 ABG pCO2 39.0 ABG pO2 66.7 L ABG HCO3 24.1 ABG O2 Saturation 94.4 ABG Base Excess -0.6 Livan Test N/a A-a O2 Gradient 14.8 H Hematocrit 37.6 L Hgb O2 Saturation 92.7 L Carboxyhemoglobin 0.9 Methemoglobin 0.9 Total Hemoglobin 12.3 L Sodium 139.0 Potassium 3.9 Glucose 129.0 H Ionized Calcium 1.2 O2 Delivery Device Nc O2 Liters/Min 3.0 FiO2 32.0 Preschool Education Director ID Ed Crossmatch See Detail Vitals: Last Vital Signs Temp 98.2 F 11/13/21 12:00 Pulse 110 H 11/13/21 12:00 Resp 18 11/13/21 12:00 BP 137/71 11/13/21 12:00 Pulse Ox 92 11/13/21 12:00 Discharge Plan Discharge Patient Disposition: Home Condition: Stable Prescriptions: New hydrocodone-acetaminophen 5-325 mg tablet 1 tab PO Q8H PRN (Reason: pain) Qty: 21 RF: 0 amoxicillin-pot clavulanate 500-125 mg Tablet 1 tab PO TID Qty: 15 RF: 0 levofloxacin 750 mg Tablet 750 mg PO DAILY@0600 Qty: 3 RF: 0 Continued metoprolol succinate [Toprol XL] 25 mg tablet extended release 24 hr 25 mg PO DAILY Qty: 30 RF: 2 Eliquis 5 mg tablet 5 mg PO BID Qty: 60 RF: 4 ferrous gluconate 240 mg (27 mg iron) tablet 240 mg PO DAILY Qty: 30 RF: 2 Breztri Aerosphere 160-9-4.8 mcg/actuation HFA aerosol inhaler 2 inh inhalation BID Qty: 10.7 RF: 2 lovastatin 20 mg tablet 20 mg PO DAILY Qty: 90 RF: 1 sucralfate [Carafate] 1 gram tablet 1 g PO .4 times day Qty: 360 RF: 1 tamsulosin 0.4 mg capsule 0.4 mg PO DAILY Qty: 90 RF: 1 omeprazole 40 mg capsule,delayed release(DR/EC) See Rx Instructions .ROUTE .COMPLEX Qty: 30 RF: 2 albuterol sulfate 2.5 mg /3 mL (0.083 %) solution for nebulization 2.5 mg inhalation Q4H PRN (Reason: shortness of breath or wheezing) Qty: 75 RF: 2 albuterol sulfate 90 mcg/actuation HFA aerosol inhaler 2 inh INHALATION Q4H PRN (Reason: shortness of breath or wheezing) Qty: 18 RF: 0 Discharge Orders: Discharge Order (Routine); Ordered 11/13/21 Ordered By: Jake Bowling Referrals: [facility] [Other] (Call this number to get In Home services setup. They will ask you questions & based off your answers, you are given points. You have to have a certain number of points to qualify. ) Jake Bowling MD [Physician] - 7-10 days Discharge Diet: Usual diet Discharge Activity: Limit activity as instructed Patient Instructions: Opioid Safety Activity Restrictions/Additional Instructions: Heavy lifting or pulling x2 weeks May begin daily showers with dressings off, but no swimming or tub baths x2 weeks Use incentive spirometer frequently Take all antibiotics until completed Notify home health nurse of increasing pain, increasing shortness of breath, redness of incisions or drainage Discharge Attestations Time Spent in Discharge Care*: less than 30 min Specific Discharge Activities: educating patient, educating and/or supporting family/caregiver, discussing with case management coordinator/social workers/dc planners, documenting/other paperwork and evaluating patient/reviewing data Status at Discharge: Cognitive status at discharge: cognitively intact , Behavioral status at discharge: cooperative , Functional status at discharge: independent ambulation Overall status at discharge: patient is progressing back to baseline Quality Metrics Clinical Quality Measures During this hospital stay, did patient experience: None Coding Level of Care Code Acute Chg FW DC note Diagnoses Pneumothorax, spontaneous, tension J93.0
== END 2021-11-13 14:00 | disposition home health service (06) | DRG 164 ==
LOC: ER 08:37 → MEDSURG 15:25 → ICU 11-10 14:46 → MEDSURG 11-11 18:47
PROVIDERS: Thoracic Surgery (Cardiothoracic Vascular Surgery); Admitting Provider Internal Medicine; Emergency Provider Family Medicine; PCP Nurse Practitioner; Visit Provider Internal Medicine
PROC: 0BTC4ZZ Resection of Right Upper Lung Lobe, Percutaneous Endoscopic Approach (ICD-10-PCS; CPT 32215; principal; 2021-11-10 12:00)
PROC: 0BTC4ZZ Resection of Right Upper Lung Lobe, Percutaneous Endoscopic Approach (ICD-10-PCS; 2021-11-10 12:00)
DX: J93.0 Spontaneous tension pneumothorax (principal); N13.8 Other obstructive and reflux uropathy; J93.83 Other pneumothorax; U09.9 Post COVID-19 condition, unspecified; N40.1 Benign prostatic hyperplasia with lower urinary tract symptoms; R33.8 Other retention of urine; J98.2 Interstitial emphysema; K21.9 Gastro-esophageal reflux disease without esophagitis; E78.5 Hyperlipidemia, unspecified; J93.82 Other air leak; Z86.711 Personal history of pulmonary embolism; Z87.891 Personal history of nicotine dependence; J44.9 Chronic obstructive pulmonary disease, unspecified; Z79.51 Long term (current) use of inhaled steroids; Z79.01 Long term (current) use of anticoagulants
CPT/HCPCS: 01996; 12345; 36415; 36600; 51702; 71045; 71275; 80048; 80051; 80053; 81003; 82330; 82550; 82805; 83605; 83735; 84484; 85025; 85610; 86850; 86900; 86920; 88309; 93005; 94640; 94660; 96372; 96374; 96375; 99291; J0690; J1100; J1170; J1650; J2250; J2405; J2704; J2795; J2930; J3010; J3490; J7626; J7799; P9016; Q9967

== ENCOUNTER → 2021-11-21 11:30 | Outpatient (BNVA) | payer MEDICARE, MEDICAID, SELFPAY | PROVIDERS: PCP Nurse Practitioner; Visit Provider Nurse Practitioner | DX: J44.9 Chronic obstructive pulmonary disease, unspecified (principal) | CPT/HCPCS: 85025 ==

== ENCOUNTER → 2021-11-22 09:59 | Outpatient (BNVA) | payer MEDICARE, MEDICAID, SELFPAY | PROVIDERS: PCP Nurse Practitioner; Visit Provider Nurse Practitioner | DX: J44.9 Chronic obstructive pulmonary disease, unspecified (principal); Z86.711 Personal history of pulmonary embolism; Z87.09 Personal history of other diseases of the respiratory system | CPT/HCPCS: 71046 ==

== ENCOUNTER 2021-12-05 14:44 | Outpatient (CLI) | payer MEDICARE, MEDICAID, SELFPAY ==
--- NOTE | 2021-12-05 14:51 | XR_ITS ---
WS: [email or web address] PROCEDURE: XR chest 2V* [id number] CLINICAL INFORMATION: Z86.711 - Personal history of pulmonary embolism COMPARISON: November 22, 2021 FINDINGS: Heart: Normal cardiac silhouette. Lungs: Moderate chronic emphysematous changes. Small bilateral pleural effusions with pleural thicken ing. Bibasilar atelectasis. Findings are similar to November 22, 2021. A few calcified granulomas. Pos toperative changes right upper lobe. Bones: Normal visualized bony structures. XR/XR chest 2V* [id number] IMPRESSION: 1. Small bilateral pleural effusions with pleural thickening unchanged. 2. Bibasilar atelectasis right greater than left lower lobe similar to November 22, 2021. 3. Postoperative changes right upper lobe. 4. No significant changes compared to November 22, 2021
== END 2021-12-05 14:45 | disposition home or self-care (01) ==
LOC: RAD 14:48
PROVIDERS: PCP Nurse Practitioner; Visit Provider Thoracic Surgery (Cardiothoracic Vascular Surgery)
DX: Z86.711 Personal history of pulmonary embolism (principal); J90 Pleural effusion, not elsewhere classified; J98.11 Atelectasis
CPT/HCPCS: 71046

== ENCOUNTER → 2022-01-04 15:40 | Outpatient (BNVA) | payer MEDICARE, MEDICAID, SELFPAY | PROVIDERS: PCP Nurse Practitioner; Visit Provider Nurse Practitioner | DX: E61.1 Iron deficiency (principal) | CPT/HCPCS: 80053; 83540; 85025 ==

== ENCOUNTER → 2022-04-09 09:49 | Outpatient (BNVA) | payer MEDICARE, MEDICAID, SELFPAY | PROVIDERS: PCP Nurse Practitioner; Visit Provider Nurse Practitioner | DX: E61.1 Iron deficiency (principal); J43.9 Emphysema, unspecified; E78.2 Mixed hyperlipidemia; R00.0 Tachycardia, unspecified; K21.9 Gastro-esophageal reflux disease without esophagitis; Z13.6 Encounter for screening for cardiovascular disorders | CPT/HCPCS: 71046; 80053; 80061; 83540; 85025 ==

== ENCOUNTER 2022-05-25 09:20 | Outpatient (CLI) | payer MEDICARE, MEDICAID, SELFPAY ==
--- NOTE | 2022-05-25 09:30 | CT_ITS ---
WS: [id number] CT CHEST TECHNIQUE: Contrast enhanced CT of the chest with coronal and sagittal reformatted images. CLINICAL INFORMATION: J44.9 - Chronic obstructive pulmonary disease, unspecified COMPARISON: CTA November 07, 2021 DLP: 660.[address] scans at [facility] use at least one of these dose optimization techniques: automated e xposure control; mA and/or kV adjustment per patient size (includes targeted exams where dose is matc hed to clinical indication); or iterative reconstruction. FINDINGS:Postoperative changes partial RIGHT upper lobe lobectomy medially with pleurodesis. Removal of chest tube since the prior examination. No residual or recurrent pneumothorax. Moderate ch ronic emphysematous changes. No acute pulmonary infiltrates. No focal pneumonia or pleural fluid. Sub segmental atelectasis/fibrosis in the RIGHT upper lobe. Slight atelectasis in the lung bases. Pleural parenchymal scarring LEFT lower lobe laterally. Normal thyroid gland. No mediastinal or hilar lymphadenopathy. Normal GE junction. Adrenal glands are normal. Celiac and SMA are patent and upper abdomen. No axillary lymphadenopathy. CT/CT chest w con* [id number] IMPRESSION: Postoperative changes partial RIGHT upper lobe lobectomy medially with pleurode sis. 1. Previously described chest tube has been removed in the interim. No new or recurrent pneumothorax. 2. Slight bibasilar atelectasis. RIGHT upper lobe parenchymal scarring. LEFT l ower lobe pleural-parenchymal scarring. 3. Moderate chronic emphysematous changes. 4. No acute pulmonary infiltrates. 5. No other significant interval changes.
[2022-05-25] MEDS: iohexol 350 mg/mL 100 mL Btl IV (10:09)
== END 2022-05-25 09:21 | disposition home or self-care (01) ==
LOC: RAD 09:20
PROVIDERS: PCP Nurse Practitioner; Visit Provider Nurse Practitioner
DX: J44.9 Chronic obstructive pulmonary disease, unspecified (principal); J98.11 Atelectasis
CPT/HCPCS: 71260

== ENCOUNTER → 2022-11-08 13:25 | Outpatient (BNVA) | payer MEDICARE, MEDICAID, SELFPAY | PROVIDERS: PCP Nurse Practitioner; Visit Provider Nurse Practitioner | DX: N40.1 Benign prostatic hyperplasia with lower urinary tract symptoms (principal); K21.9 Gastro-esophageal reflux disease without esophagitis; R00.0 Tachycardia, unspecified; E78.2 Mixed hyperlipidemia; J43.9 Emphysema, unspecified; J44.9 Chronic obstructive pulmonary disease, unspecified | CPT/HCPCS: 80053; 80061; 84443 ==

== ENCOUNTER → 2023-02-11 09:08 | Outpatient (BNVA) | payer MEDICARE, MEDICAID, SELFPAY | PROVIDERS: PCP Nurse Practitioner; Referring Provider Nurse Practitioner; Visit Provider Nurse Practitioner | DX: E78.2 Mixed hyperlipidemia (principal) | CPT/HCPCS: 80053; 80061; 85025 ==

== ENCOUNTER 2023-06-27 10:50 | Outpatient (CLI) | payer MEDICARE, MEDICAID, SELFPAY ==
--- NOTE | 2023-06-27 11:00 | CT_ITS ---
WS: [id number] LDCT LUNG CANCER SCREENING TECHNIQUE: Noncontrast CT of the chest with coronal and sagittal reformatted images. CLINICAL INFORMATION: Z87.891 - Personal history of nicotine dependence COMPARISON: CT chest 05/25/2022 DLP: 57.61 mGy.cm DIvol: Mean CTDIvol: 1.10 (mGy) All CT scans at [facility] use at least one of these dose optimization techniques: automat ed exposure control; mA and/or kV adjustment per patient size (includes targeted exams where dose is matched to clinical indication); or iterative reconstruction. FINDINGS: Moderate chronic emphysematous changes. Normal caliber thoracic aorta. Aortic calcification. Coronary calcification. No mediastinal or hilar lymphadenopathy. No axillary lymphadenopathy. Tiny esophageal hiatal hernia. Adrenal glands are normal. Normal thoracic spine. Calcified pleural plaques in the RIGHT upper lobe. Few calcified granulomas. Moderate chronic emphyse matous changes. Subsegmental atelectasis in the RIGHT middle lobe and both lower lobes. Small nodules along the RIGHT minor fissure largest measuring 8 mm. These appear unchanged since the prior study. IMPRESSION: CT/CT lung screening [id number] LUNG-RADS: 2-Benign Appearance or Behavior FOLLOW UP: 12 Month: Continue annual screening with LDCT
== END 2023-06-27 10:51 | disposition home or self-care (01) ==
PROVIDERS: PCP Nurse Practitioner; Visit Provider Nurse Practitioner
DX: Z12.2 Encounter for screening for malignant neoplasm of respiratory organs (principal); Z87.891 Personal history of nicotine dependence
CPT/HCPCS: 71271

== ENCOUNTER → 2023-08-08 10:45 | Outpatient (BNVA) | payer MEDICARE, MEDICAID, SELFPAY | PROVIDERS: PCP Nurse Practitioner; Visit Provider Nurse Practitioner | DX: E61.1 Iron deficiency (principal); E78.2 Mixed hyperlipidemia; E55.9 Vitamin D deficiency, unspecified; J43.9 Emphysema, unspecified; R00.0 Tachycardia, unspecified; K21.9 Gastro-esophageal reflux disease without esophagitis; N40.1 Benign prostatic hyperplasia with lower urinary tract symptoms; Z12.5 Encounter for screening for malignant neoplasm of prostate | CPT/HCPCS: 80053; 80061; 82306; 82607; 83540; 85025; G0103 ==

== ENCOUNTER → 2024-01-09 10:28 | Outpatient (BNVA) | payer MEDICARE, MEDICAID, SELFPAY | PROVIDERS: PCP Nurse Practitioner; Visit Provider Nurse Practitioner | DX: E55.9 Vitamin D deficiency, unspecified (principal); E78.2 Mixed hyperlipidemia; R00.0 Tachycardia, unspecified | CPT/HCPCS: 80053; 80061; 82306; 84443 ==

== ENCOUNTER → 2024-06-25 10:29 | Outpatient (BNVA) | payer MEDICARE, MEDICAID, SELFPAY | PROVIDERS: PCP Nurse Practitioner; Visit Provider Nurse Practitioner | DX: R00.0 Tachycardia, unspecified (principal); K21.9 Gastro-esophageal reflux disease without esophagitis; E78.2 Mixed hyperlipidemia | CPT/HCPCS: 80053; 80061; 84443 ==

== ENCOUNTER 2024-09-09 09:48 | Outpatient (CLI) | payer MEDICARE, MEDICAID, SELFPAY ==
--- NOTE | 2024-09-09 10:00 | CT_ITS ---
WS: [email or web address] LDCT LUNG CANCER SCREENING TECHNIQUE: Noncontrast CT of the chest with coronal and sagittal reformatted images. CLINICAL INFORMATION: Z87.891 - Personal history of nicotine dependence COMPARISON: 06/27/2023 DLP: 80.69 mGy.cm DIvol: Mean CTDIvol: 1.60 (mGy) All CT scans at [facility] use at least one of these dose optimization techniques: automat ed exposure control; mA and/or kV adjustment per patient size (includes targeted exams where dose is matched to clinical indication); or iterative reconstruction. FINDINGS: Moderate chronic emphysematous changes. Small nodules along the RIGHT minor fissure largest measurin g 8 mm similar to previous. No new suspicious pulmonary parenchymal opacities. Bibasilar atelectasis. A few calcified granulomas. Mild thoracic curve. Mild thoracic kyphosis. Normal caliber thoracic aorta. Aortic calcification. Cor onary calcification. No mediastinal or hilar lymphadenopathy. No axillary lymphadenopathy. Tiny esoph ageal hiatal hernia. Adrenal glands are normal. Calcified pleural plaques in the RIGHT upper lobe. CT/CT lung screening [id number] IMPRESSION: LUNG-RADS: 2-Benign Appearance or Behavior FOLLOW UP: 12 Month: Continue annual screening with LDCT
== END 2024-09-09 09:49 | disposition home or self-care (01) ==
LOC: RAD 09:49
PROVIDERS: PCP Nurse Practitioner; Visit Provider Nurse Practitioner
DX: Z12.2 Encounter for screening for malignant neoplasm of respiratory organs (principal); Z87.891 Personal history of nicotine dependence; J43.9 Emphysema, unspecified; R91.8 Other nonspecific abnormal finding of lung field; J92.9 Pleural plaque without asbestos; J98.11 Atelectasis; J84.10 Pulmonary fibrosis, unspecified; I70.0 Atherosclerosis of aorta; I25.84 Coronary atherosclerosis due to calcified coronary lesion
CPT/HCPCS: 71271

== ENCOUNTER → 2024-12-10 09:15 | Outpatient (BNVA) | payer MEDICARE, MEDICAID, SELFPAY | PROVIDERS: PCP Nurse Practitioner; Visit Provider Nurse Practitioner | DX: Z12.5 Encounter for screening for malignant neoplasm of prostate (principal); E78.2 Mixed hyperlipidemia | CPT/HCPCS: 80053; 80061; G0103 ==

== ENCOUNTER → 2025-06-03 08:46 | Outpatient (BNVA) | payer MEDICARE, MEDICAID, SELFPAY | PROVIDERS: PCP Nurse Practitioner; Visit Provider Nurse Practitioner | DX: E78.2 Mixed hyperlipidemia (principal); E55.9 Vitamin D deficiency, unspecified | CPT/HCPCS: 80053; 80061; 82306 ==